=== PATIENT | female | born 1930 | race Caucasian/White ===

== ENCOUNTER → 2017-01-05 | Outpatient (CLI) | payer OTHER ==
[~2017-01-05] MED LIST: ASPIR 8181 MG PO; BONIVA150 MG PO; CALCIUM CITRAT250 MG PO; FLONASE 0.05%50 MCG NASAL; HAIR SKIN NAIL1 EACH PO; LASIX 20 MG TAB20 MG PO; OSTEO BI-FLEX1 EAC1 PO; QUINAPRIL 20 MG20 MG PO; RELAFEN500 MG PO; VITAMIN D400 UNI1 PO; ZOCOR20 MG PO
== END ==
LOC: RAD 01:27
DX: Z12.31 Encounter for screening mammogram for malignant neoplasm of breast (principal)

== ENCOUNTER → 2017-06-20 | Outpatient (CLI) | payer OTHER ==
[~2017-06-20] MED LIST changes: +XARELTO20 MG PO
== END ==
LOC: HYPER 13:02
DX: L89.522 Pressure ulcer of left ankle, stage 2 (principal); L97.321 Non-pressure chronic ulcer of left ankle limited to breakdown of skin; L97.811 Non-pressure chronic ulcer of other part of right lower leg limited to breakdown of skin; I73.89 Other specified peripheral vascular diseases; Z72.89 Other problems related to lifestyle

== ENCOUNTER 2017-09-15 12:39 | Inpatient (IN) | payer OTHER ==
[~2017-09-15] VITALS: Ht 152.4 cm; Wt 59.4 kg
--- NOTE | ~2017-09-15 | CATHLAB ---
[facility] [address] [place] [address] INVASIVE PROCEDURE REPORT Name: HAYDER GUTIERREZ Room #: 200-I [facility]#: [id number] Admission: 09/15/17 Attend Phys: Matthew Meza Discharge: 09/16/17 Date of : 32 Date of Service: 09/16/17 1430 Report #: [id number] THIS REPORT FOR: //name// CC: Matthew Bone DATE OF SERVICE: 09/16/2017 PROCEDURES: 1. Electrical cardioversion. 2. Supervision of conscious sedation. INDICATIONS: An 87-year-old female patient with symptomatic paroxysmal atrial fibrillation with fatigue, tiredness and exertional dyspnea. BRIEF DESCRIPTION OF PROCEDURE: After informed consent was obtained, the patient was brought to cardiac catheterization prep and hold. Continuous electrocardiographic and oximetric monitoring was performed throughout the procedure. 2 mg Versed and 25 of Demerol given IV for conscious sedation. She subsequently underwent 1 synchronized AP shock at 200 joules biphasic, which converted to sinus rhythm first-degree AV block. She was monitored and the AV block resolved and remained in sinus rhythm. Post-procedure, she was given Romazicon and Narcan without complications. The patient tolerated the procedure well. <ELECTRONICALLY SIGNED> By: Matthew Warren MD 09/20/17 1626 1430 1852 Matthew Warren MD /argenis
--- NOTE | ~2017-09-15 | H ---
[facility] [place] [address] [place] [address] HISTORY AND PHYSICAL Name: HAYDER GUTIERREZ Room #: 200-I [facility] IN M.R.#: [id number] Admission: 09/15/17 Attend Phys: Matthew Warren Discharge: 09/16/17 Date of : 31 Report #: [id number] THIS REPORT FOR: //name// CC: Matthew Bone DATE OF SERVICE: 09/15/2017 REASON FOR ADMISSION: Paroxysmal symptomatic atrial fibrillation. BRIEF CLINICAL HISTORY: This is a very pleasant female who was seen as an outpatient for atrial fibrillation. The patient had new onset atrial fibrillation with some fatigue and tiredness. A noninvasive ischemic workup was negative and subsequently has been anticoagulated on a novel agent (Eliquis) for 4 weeks minimum. She now presents for chemical and possible electrical cardioversion. The risks, complications and alternative that has been discussed. She does voice understanding and agrees with admission. PAST MEDICAL HISTORY: 1. Hypertension. 2. Symptomatic paroxysmal atrial fibrillation. 3. Degenerative joint disease. MEDICATIONS: At home are aspirin, lisinopril, amlodipine and Eliquis. PHYSICAL EXAMINATION: GENERAL: Well-developed, well-nourished white female, resting comfortably, in no acute distress. VITAL SIGNS: She is afebrile. Pulse is 65 and irregularly irregular. Respirations are 18, blood pressure is 122/78, and pulse ox on room air is 94%. HEENT: Normocephalic, atraumatic. Pupils are equal, round, reactive to light and accommodation. Extraocular muscles are intact. Sclerae and conjunctivae are anicteric. NECK: JVD is normal. Carotid upstrokes are bilaterally symmetrical. No bruits are heard. No thyromegaly. No lymphadenopathy. LUNGS: Clear to auscultation. No wheezes, rhonchi or crackles. No CVA tenderness. CARDIAC: Demonstrates an irregularly irregular rhythm with a variable first heart sound. ABDOMEN: Soft, nontender, nondistended. Normal bowel sounds. EXTREMITIES: Without cyanosis, clubbing or edema. Distal pulses are intact. DTR symmetrical. NEUROLOGIC: Cranial nerves 2-12 are grossly normal and symmetrical. PSYCHIATRIC: Alert, oriented with normal affect. SKIN: Warm and dry. LABORATORY DATA: BUN and creatinine are 17 and 1.0 respectively, with a [facility] [address] [place] [address] HISTORY AND PHYSICAL Name: HAYDER GUTIERREZ Room #: 200-I [facility] IN .R.#: [id number] Admission: 09/15/17 Attend Phys: Matthew Warren Discharge: 09/16/17 Date of : 31 Report #: [id number] potassium of 4.4. H and H are 12.0 and 35.5, with a platelet count of 210,000. IMPRESSION: 1. Paroxysmal symptomatic atrial fibrillation, presents for assessment and evaluation and possible cardioversion. The risks, complications and alternatives of chemical and electrical cardioversion have been discussed with the patient. She does voice understanding and wished to proceed. We will initiate with IV amiodarone. Monitor rate very carefully and make sure she does not become bradycardic, monitor her blood pressures and then proceed accordingly. 2. Hypertension, well controlled on current regimen. I need not make any changes. <ELECTRONICALLY SIGNED> By: Matthew Warren MD 09/20/17 1626 1141 1211 Matthew Warren MD /nt
--- NOTE | ~2017-09-15 | D ---
[facility] [place] [address] [place] [address] DISCHARGE SUMMARY Name: HAYDER GUTIERREZ Room #: 200-I [facility] IN ..#: [id number] Admission: 09/15/17 Attend Phys: Matthew Warren Discharge: 09/16/17 Date of : 31 Report #: [id number] THIS REPORT FOR: //name// CC: Matthew Bone DATE OF SERVICE: 09/16/2017 ADMITTING DIAGNOSIS: Paroxysmal atrial fibrillation. DISCHARGE DIAGNOSES: 1. Paroxysmal atrial fibrillation, symptomatic. 2. Hypertension. 3. Degenerative joint disease. PROCEDURES PERFORMED: 1. Electrical cardioversion. 2. Supervision of conscious sedation. FOLLOWUP: 1. Dr. Warren in 4 weeks. 2. Nurse practitioner, Maurisio in 7 days. DISCHARGE MEDICATIONS: Home meds with following changes, amiodarone 200 mg p.o. q.a.m. BRIEF CLINICAL HISTORY: See history and physical in the chart. HOSPITAL COURSE: The patient was admitted to the hospital, was initiated on IV amiodarone load. She underwent this without any complication or symptoms and subsequently did not convert. She then underwent electrical cardioversion with a single biphasic shock at 200 joules, which converted her to sinus mechanism. She remained in sinus mechanism post-procedure, was allowed to ambulate without any symptoms or problems developing. She was discharged in stable and improved condition to followup with her previously-stated discharge instructions and medications. DISCHARGE DIET: Heart-healthy diet. <ELECTRONICALLY SIGNED> By: Matthew Warren MD 09/20/17 1626 1434 1508 Matthew Warren MD /nt
--- NOTE | ~2017-09-15 | EKG ---
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
[~2017-09-15 12:39] MED LIST changes: -XARELTO20 MG PO
[2017-09-15 13:20] VITALS: BP 123/78
[2017-09-15 15:23] LABS: HEMATOCRIT 35.5 % (37.0-47.0); MCH 29.2 pg (26.0-34.0); MCHC 33.9 g/dL (28.0-37.0); MCV 86.2 fL (80.0-100.0); RBC 4.12 mil/uL (4.20-5.00); RDW 14.9 % (10.5-14.5); WBC 4.6 thou/uL (4.0-11.0)
[2017-09-15 15:31] LABS: CALCIUM 9.7 mg/dL (8.5-10.1); POTASSIUM 4.4 mmol/L (3.5-5.1)
[2017-09-15 15:33] LABS: INR 1.1; PROTIME 11.2 Seconds (9.3-11.4)
[2017-09-15 15:46] VITALS: BP 129/75
[2017-09-15 19:50] VITALS: BP 99/62
[2017-09-16 00:04] VITALS: BP 85/53
[2017-09-16 03:22] VITALS: BP 104/71
[2017-09-16 06:59] VITALS: BP 116/64
[2017-09-16 11:14] VITALS: BP 103/65
[2017-09-16] MEDS ORDERED: XARELTO20 MG PO (14:13)
[2017-09-16 14:24] VITALS: BP 103/65
[2017-09-16 14:36] VITALS: BP 103/65
== END 2017-09-16 15:00 | disposition home or self-care (01) | DRG 310 ==
LOC: 2N 12:39 → ENTRNSPT 09-16 14:45 → 2N 09-16 15:00
PROVIDERS: Nurse Practitioner Gerontology
PROC: 5A2204Z Restoration of Cardiac Rhythm, Single (ICD-10-PCS; principal; 2017-09-16)
DX: I48.0 Paroxysmal atrial fibrillation (principal); I10 Essential (primary) hypertension; Z79.82 Long term (current) use of aspirin; Z79.899 Other long term (current) drug therapy
CPT/HCPCS: 10797

== ENCOUNTER → 2017-11-16 | Outpatient (CLI) | payer OTHER ==
[~2017-11-16] MED LIST changes: +XARELTO20 MG PO
== END ==
LOC: HYPER 07:09
DX: L97.811 Non-pressure chronic ulcer of other part of right lower leg limited to breakdown of skin (principal); I87.2 Venous insufficiency (chronic) (peripheral); I73.9 Peripheral vascular disease, unspecified

== ENCOUNTER → 2017-11-23 | Outpatient (CLI) | payer OTHER | LOC: HYPER 07:01 | DX: L97.311 Non-pressure chronic ulcer of right ankle limited to breakdown of skin (principal); L97.811 Non-pressure chronic ulcer of other part of right lower leg limited to breakdown of skin; I87.2 Venous insufficiency (chronic) (peripheral); I73.9 Peripheral vascular disease, unspecified ==

== ENCOUNTER → 2017-11-30 | Outpatient (CLI) | payer OTHER | LOC: HYPER 06:44 | DX: L97.811 Non-pressure chronic ulcer of other part of right lower leg limited to breakdown of skin (principal); L97.311 Non-pressure chronic ulcer of right ankle limited to breakdown of skin; I87.2 Venous insufficiency (chronic) (peripheral); I73.9 Peripheral vascular disease, unspecified ==

== ENCOUNTER → 2017-12-12 | Outpatient (CLI) | payer OTHER | LOC: HYPER 07:26 | DX: L97.811 Non-pressure chronic ulcer of other part of right lower leg limited to breakdown of skin (principal); L97.821 Non-pressure chronic ulcer of other part of left lower leg limited to breakdown of skin; L97.321 Non-pressure chronic ulcer of left ankle limited to breakdown of skin; I87.2 Venous insufficiency (chronic) (peripheral); I73.9 Peripheral vascular disease, unspecified ==

== ENCOUNTER → 2017-12-28 | Outpatient (CLI) | payer OTHER | LOC: HYPER 06:38 | DX: L97.811 Non-pressure chronic ulcer of other part of right lower leg limited to breakdown of skin (principal); L97.311 Non-pressure chronic ulcer of right ankle limited to breakdown of skin; I87.2 Venous insufficiency (chronic) (peripheral); I73.9 Peripheral vascular disease, unspecified ==

== ENCOUNTER → 2018-01-09 | Outpatient (CLI) | payer OTHER | LOC: RAD 01:17 | DX: Z12.31 Encounter for screening mammogram for malignant neoplasm of breast (principal); I10 Essential (primary) hypertension; M81.0 Age-related osteoporosis without current pathological fracture ==

== ENCOUNTER → 2018-03-16 | Outpatient (CLI) | payer OTHER | LOC: HYPER 06:52 | DX: L97.321 Non-pressure chronic ulcer of left ankle limited to breakdown of skin (principal); L97.311 Non-pressure chronic ulcer of right ankle limited to breakdown of skin; L97.811 Non-pressure chronic ulcer of other part of right lower leg limited to breakdown of skin; I87.8 Other specified disorders of veins; I87.2 Venous insufficiency (chronic) (peripheral); I73.9 Peripheral vascular disease, unspecified ==

== ENCOUNTER → 2018-03-28 | Outpatient (CLI) | payer OTHER | LOC: HYPER 06:59 | DX: L97.311 Non-pressure chronic ulcer of right ankle limited to breakdown of skin (principal); L97.321 Non-pressure chronic ulcer of left ankle limited to breakdown of skin; L97.811 Non-pressure chronic ulcer of other part of right lower leg limited to breakdown of skin; I87.2 Venous insufficiency (chronic) (peripheral); I87.8 Other specified disorders of veins; I73.9 Peripheral vascular disease, unspecified ==

== ENCOUNTER → 2018-04-10 | Outpatient (CLI) | payer OTHER | LOC: HYPER 06:57 | DX: L97.811 Non-pressure chronic ulcer of other part of right lower leg limited to breakdown of skin (principal); L97.311 Non-pressure chronic ulcer of right ankle limited to breakdown of skin; L97.322 Non-pressure chronic ulcer of left ankle with fat layer exposed; S91.301A Unspecified open wound, right foot, initial encounter; L84 Corns and callosities; I87.2 Venous insufficiency (chronic) (peripheral); I87.8 Other specified disorders of veins; I73.9 Peripheral vascular disease, unspecified; X58.XXXA Exposure to other specified factors, initial encounter; Y93.89 Activity, other specified; Y92.89 Other specified places as the place of occurrence of the external cause; Y99.8 Other external cause status ==

== ENCOUNTER → 2018-05-02 | Outpatient (CLI) | payer OTHER | LOC: HYPER 04-25 15:51 | DX: I87.333 Chronic venous hypertension (idiopathic) with ulcer and inflammation of bilateral lower extremity (principal); L97.311 Non-pressure chronic ulcer of right ankle limited to breakdown of skin; L97.811 Non-pressure chronic ulcer of other part of right lower leg limited to breakdown of skin; L97.322 Non-pressure chronic ulcer of left ankle with fat layer exposed; L84 Corns and callosities; B36.9 Superficial mycosis, unspecified; I87.8 Other specified disorders of veins; I73.9 Peripheral vascular disease, unspecified ==

== ENCOUNTER 2018-05-24 07:03 | Inpatient (IN) | payer OTHER ==
[~2018-05-24] VITALS: Ht 165.1 cm; Wt 55.7 kg
--- NOTE | ~2018-05-24 | HC ---
[facility] [place] [address] [place] [address] CONSULTATION Name: HAYDER GUTIERREZ Room #: 222-P [facility] IN .R.#: [id number] Admission: 05/24/18 Attend Phys: Jazmyne Wiggins MD Discharge: Date of : 31 Report #: [id number] THIS REPORT FOR: //name// CC: Jazmyne Strickland Smith Jason Hyatt DATE OF SERVICE: 05/26/2018 REASON FOR CONSULTATION: I was asked to evaluate concerning bilateral lower extremity cellulitis. HISTORY OF PRESENT ILLNESS: The patient was an 88-year-old admitted from the [facility] because of progressive lower extremity wounds and cellulitis. The patient could not tell me what antibiotic she was on in the outpatient clinic. I have not seen any culture results. Following admission, she was placed on Zosyn. She has a significant amount of tenderness in both lower extremities. She has weeping serous drainage from her wounds. No fever, chills or sweats. She has been dealing with this for several months. She has also had vein ablation surgery procedures which remain ongoing. She has had arterial studies, which show posterior tibial obstruction bilaterally with good anterior flow. She feels over the last 24 hours of IV antibiotic therapy and wound care, she has improved. ALLERGIES: BACTRIM. MEDICATIONS: As noted on her MAR, now on Zosyn. She is also receiving topical therapy with gentamicin. PAST MEDICAL HISTORY: Bilateral total knee arthroplasties, cholecystectomy, hypertension, hyperlipidemia, right cataract surgery, right breast cancer with lumpectomy, lymph node dissection, full dentures, peripheral vascular disease, status post stenting, atrial fibrillation. FAMILY HISTORY: Noncontributory. SOCIAL HISTORY: Nonsmoker, no significant alcohol intake. REVIEW OF SYSTEMS: CONSTITUTIONAL: Negative. EYES: Negative. HEENT: Negative. RESPIRATORY: Negative. CARDIOVASCULAR: Negative. GASTROINTESTINAL: Negative. GENITOURINARY: Negative. [facility] [address] [place] [address] CONSULTATION Name: HAYDER GUTIERREZ Room #: 222-P [facility] IN [facility].#: [id number] Admission: 05/24/18 Attend Phys: Jazmyne Wiggins MD Discharge: Date of : 31 Report #: [id number] MUSCULOSKELETAL: Negative. SKIN: As above with peripheral edema noted. NEUROLOGIC: Negative. PSYCHIATRIC: Negative. ENDOCRINE: Negative. PHYSICAL EXAMINATION: VITAL SIGNS: Afebrile and hemodynamically stable. GENERAL: Alert and cooperative. HEENT: Unremarkable other than being edentulous. No oral mucosal lesions. NECK: Supple. No JVD. LUNGS: Clear. HEART: Regular, without murmur. ABDOMEN: Soft and nontender. No hepatosplenomegaly or mass. EXTREMITIES: Pulses were palpable, 4+ in the dorsalis pedis bilaterally. Diminished posterior tibial. Reasonable capillary refill, both feet. Venous stasis dermatitis changes bilateral lower extremities from ankles to proximal mid calf regions. No purulent drainage identified. She did have some crusting of her lesions. There were erythematous areas on both lower legs with no lymphangitis proximal to the knees. NEUROLOGIC: Nonfocal with cranial nerves intact. Strength and sensation normal upper and lower extremities. LABORATORY STUDIES: Reviewed. Cultures are pending. IMPRESSION AND PLAN: 1. Bilateral lower extremity venous stasis disease with secondary infection. I have discussed the case with wound care service. She has had a vascular work done previously. 2. Atrial fibrillation. 3. Peripheral vascular disease and venous insufficiency. RECOMMENDATION: 1. We will continue with Zosyn pending further culture results. Continue with Wound Care procedures as outlined by the wound care service. Elevate as much as possible to control edema. Once cultures are back then we will decide on oral antibiotic options. <ELECTRONICALLY SIGNED> By: Luis Stoner MD 05/27/18 1032 1618 2129 Luis Stoner MD /nt
--- NOTE | ~2018-05-24 | HC ---
[facility] [address] [place] [address] CONSULTATION Name: HAYDER GUTIERREZ Room #: 222-P ADM IN M.R.#: [id number] Admission: 05/24/18 Attend Phys: Jazmyne Wiggins MD Discharge: Date of : 31 Report #: [id number] THIS REPORT FOR: //name// CC: Jazmyne Smith Jason Hyatt DATE OF SERVICE: 05/25/2018 REASON FOR CONSULTATION: Bilateral lower extremity venous ulcerations and cellulitis. HISTORY OF PRESENT ILLNESS: This is an 88-year-old female patient who has been followed by Dr. Smith in the outpatient wound center since November 2016. She has had recurrent and persistent ulceration. She has recently developed cellulitis that has failed outpatient antibiotic therapy due to increased pain, swelling, drainage and redness. She is admitted to the hospital for ongoing treatment and evaluation. PAST MEDICAL HISTORY: Significant for history of venous insufficiency, venous stasis dermatitis and ulceration. She has been evaluated by Dr. Dowling for venous ablations. She has previously undergone arterial Doppler studies, which demonstrate fairly good flow. She has 2-vessel runoff below the knees with occlusion of the posterior tibial arteries bilaterally. ALLERGIES: SULFA. MEDICATIONS: Include Xarelto, Accupril, Osteo Bi-Flex, Lasix, Zocor, Flonase, aspirin. PAST MEDICAL HISTORY: Positive for history of atrial fibrillation, peripheral arterial disease, breast cancer, hyperlipidemia, hypertension. SOCIAL HISTORY: The patient admits to occasional alcohol consumption. Denies tobacco use. FAMILY HISTORY: Unknown and noncontributory. REVIEW OF SYSTEMS: CONSTITUTIONAL: The patient denies fever, chills or weight loss. NEUROLOGICAL: The patient denies focal weakness, numbness or tingling. EYES: The patient denies any visual changes, redness or drainage. ENT: The patient denies earache, nasal drainage or sore throat. CARDIOVASCULAR: The patient denies chest pain or palpitations. PULMONARY: The patient denies cough or shortness of breath. GASTROINTESTINAL: The patient denies nausea, vomiting, diarrhea or abdominal [facility] [address] [facility] [place] [address] CONSULTATION Name: HAYDER GUTIERREZ Room #: 222-P [facility] IN M.R.#: [id number] Admission: 05/24/18 Attend Phys: Jazmyne Wiggins MD Discharge: Date of : 31 Report #: [id number] pain. ORTHOPEDIC: The patient does complain of swelling, redness and pain in both lower extremities. Other systems in a 14-point review of systems are negative. PHYSICAL EXAMINATION: VITAL SIGNS: At this time include pulse 56, respiratory rate 17, blood pressure 119/67, temperature 98.0. GENERAL: This is a chronically ill-appearing female patient who appears to be in minimal distress. HEENT: Head normocephalic. Nose and throat are clear. NECK: Supple. LUNGS: Clear. HEART: Irregular without murmur. ABDOMEN: Soft. Bowel sounds present. EXTREMITIES: Lower extremities demonstrate easily palpable dorsalis pedis pulses bilaterally. She has 1+ edema bilaterally. Significant erythema involving the lower legs and ankles bilaterally, multiple ulcerations of scaling and venous stasis dermatitis. NEUROLOGIC: Alert and oriented. LABORATORY DATA: Include sodium 133, potassium 4.6, chloride 102, CO2 of 26, BUN 27, creatinine 1.2 and glucose of 92. Albumin is 3.0. INR is 1.1. White blood cell count is 4.8 with a hemoglobin of 10.0, hematocrit of 29.5, platelet count 277,000. CLINICAL IMPRESSION: 1. Venous type ulcerations, bilateral lower extremities. 2. Cellulitis, bilateral lower extremities. 3. Venous stasis dermatitis. 4. Peripheral arterial disease with occluded posterior tibial arteries bilaterally. RECOMMENDATIONS: At this point in time, culture and sensitivity has been obtained, results pending. We will recommend elevation of her leg, gentamicin ointment, Xeroform, Kerlix and Jimmy wraps for compression. We will continue her current home medications. Continue nutritional support. Infectious Disease consultation has been requested. I appreciate being asked to see her in consultation. <ELECTRONICALLY SIGNED> By: Agapito Briggs MD 05/29/18 0738 1558 49 Agapito Briggs MD /nt
[2018-05-24 14:48] VITALS: BP 139/62
[2018-05-24 15:09] LABS: HEMATOCRIT 32.5 % (37.0-47.0); HEMOGLOBIN 10.9 gm/dL (12.0-15.0); MCH 31.3 pg (26.0-34.0); MCHC 33.6 g/dL (28.0-37.0); MCV 93.3 fL (80.0-100.0); RBC 3.49 mil/uL (4.20-5.00); RDW 14.6 % (10.5-14.5); WBC 5.7 thou/uL (4.0-11.0)
[2018-05-24 15:23] LABS: CALCIUM 9.2 mg/dL (8.5-10.1); CREATININE 1.5 mg/dL (0.6-1.0); POTASSIUM 4.9 mmol/L (3.5-5.1)
[2018-05-24 15:29] LABS: TOTAL BILIRUBIN 0.7 mg/dL (<0.1-1.0); TOTAL PROTEIN 7.9 g/dL (6.4-8.2)
[2018-05-24] MEDS ORDERED: ELIQUIS2.5 MG PO (17:58)
[2018-05-24] MEDS ORDERED: NEURONTIN100 MG (18:00)
[2018-05-24 18:53] VITALS: BP 136/70
[2018-05-24 19:54] VITALS: BP 122/64
[2018-05-24 22:19] LABS: URINE BILIRUBIN NEGATIVE (Negative); URINE BLOOD NEGATIVE (Negative); URINE CLARITY CLEAR; URINE COLOR YELLOW; URINE GLUCOSE-RANDOM* NEGATIVE (Negative); URINE KETONES NEGATIVE (Negative); URINE LEUKOCYTES TRACE (Negative); URINE NITRITE NEGATIVE (Negative); URINE PROTEIN (DIPSTICK) NEGATIVE (Negative); URINE UROBILINOGEN 0.2 E.U./dl (0.2-1.0)
[2018-05-25 07:36] LABS: HEMATOCRIT 29.5 % (37.0-47.0); MCH 31.4 pg (26.0-34.0); MCV 92.3 fL (80.0-100.0); RBC 3.19 mil/uL (4.20-5.00); RDW 14.1 % (10.5-14.5); WBC 4.8 thou/uL (4.0-11.0)
[2018-05-25 07:51] LABS: CALCIUM 8.4 mg/dL (8.5-10.1); CREATININE 1.2 mg/dL (0.6-1.0); POTASSIUM 4.6 mmol/L (3.5-5.1)
[2018-05-25 08:20] VITALS: BP 119/67
[2018-05-25 19:30] VITALS: BP 120/66
[2018-05-25] MEDS ORDERED: AMIODARONE HCL100 MG PO (19:46)
[2018-05-25] MEDS ORDERED: SYNTHROID25 MC1 PO (19:48)
[2018-05-26 07:45] VITALS: BP 119/67
[2018-05-26 09:39] LABS: FOLIC ACID 29.9 ng/mL (8.6-58.9)
[2018-05-26 19:59] VITALS: BP 111/53
[2018-05-27 08:06] VITALS: BP 145/101
[2018-05-27 20:00] VITALS: BP 122/70
[2018-05-28 07:41] VITALS: BP 127/70
[2018-05-28 22:33] VITALS: BP 155/83
[2018-05-29 07:30] VITALS: BP 141/70
[2018-05-29 07:56] LABS: HEMATOCRIT 32.3 % (37.0-47.0); HEMOGLOBIN 10.9 gm/dL (12.0-15.0); MCH 31.1 pg (26.0-34.0); MCHC 33.6 g/dL (28.0-37.0); MCV 92.4 fL (80.0-100.0); RBC 3.49 mil/uL (4.20-5.00); RDW 14.4 % (10.5-14.5); WBC 5.1 thou/uL (4.0-11.0)
[2018-05-29 08:12] LABS: CALCIUM 8.7 mg/dL (8.5-10.1); POTASSIUM 4.3 mmol/L (3.5-5.1)
[2018-05-30 00:29] VITALS: BP 110/58
[2018-05-30 07:40] VITALS: BP 121/62
[2018-05-30 10:49] VITALS: BP 120/62
[2018-05-30] MEDS ORDERED: CETIRIZINE HCL5 MG PO (12:51)
[2018-05-30] MEDS ORDERED: ACETAMINOPHEN325 M1 PO (12:51)
[2018-05-30] MEDS ORDERED: ASPIR 8181 MG PO (12:51)
[2018-05-30] MEDS ORDERED: HYDROCODON-ACE1 EAC7 PO (12:51)
[2018-05-30] MEDS ORDERED: TRAMADOL 50 MG50 MG PO (12:51)
== END 2018-05-30 16:01 | DRG 602 ==
LOC: HYPER 07:03 → SICU 13:34 → 4E 13:34 → SICU 18:21
PROVIDERS: Internal Medicine; Nurse Practitioner Family
PROC: 5A2204Z Restoration of Cardiac Rhythm, Single (ICD-10-PCS; principal; 2018-05-24)
PROC: 05HY33Z Insertion of Infusion Device into Upper Vein, Percutaneous Approach (ICD-10-PCS; 2018-05-26)
DX: L03.116 Cellulitis of left lower limb (principal); N17.0 Acute kidney failure with tubular necrosis; E87.1 Hypo-osmolality and hyponatremia; L03.115 Cellulitis of right lower limb; I73.9 Peripheral vascular disease, unspecified; K59.00 Constipation, unspecified; E55.9 Vitamin D deficiency, unspecified; I87.2 Venous insufficiency (chronic) (peripheral); E78.5 Hyperlipidemia, unspecified; I10 Essential (primary) hypertension; Z96.653 Presence of artificial knee joint, bilateral; I48.0 Paroxysmal atrial fibrillation; L27.0 Generalized skin eruption due to drugs and medicaments taken internally; B96.5 Pseudomonas (aeruginosa) (mallei) (pseudomallei) as the cause of diseases classified elsewhere; B96.89 Other specified bacterial agents as the cause of diseases classified elsewhere; T36.0X5A Adverse effect of penicillins, initial encounter; Y92.89 Other specified places as the place of occurrence of the external cause; Z90.49 Acquired absence of other specified parts of digestive tract; Z98.41 Cataract extraction status, right eye; Z85.3 Personal history of malignant neoplasm of breast; Z79.01 Long term (current) use of anticoagulants; Z79.899 Other long term (current) drug therapy; Z88.1 Allergy status to other antibiotic agents; Z88.2 Allergy status to sulfonamides
CPT/HCPCS: 15002; 27000

== ENCOUNTER → 2018-10-23 | Outpatient (CLI) | payer OTHER ==
[~2018-10-23] MED LIST changes: +ACETAMINOPHEN325 M1 PO; +AMIODARONE HCL100 MG PO; +CETIRIZINE HCL5 MG PO; +ELIQUIS2.5 MG PO; +HYDROCODON-ACE1 EAC7 PO; +NEURONTIN100 MG; +SYNTHROID25 MC1 PO; +TRAMADOL 50 MG50 MG PO
== END ==
LOC: HYPER 06:47
DX: I87.333 Chronic venous hypertension (idiopathic) with ulcer and inflammation of bilateral lower extremity (principal); L97.311 Non-pressure chronic ulcer of right ankle limited to breakdown of skin; L97.322 Non-pressure chronic ulcer of left ankle with fat layer exposed; L97.811 Non-pressure chronic ulcer of other part of right lower leg limited to breakdown of skin; I87.2 Venous insufficiency (chronic) (peripheral); L03.115 Cellulitis of right lower limb; L03.116 Cellulitis of left lower limb; L84 Corns and callosities; I73.9 Peripheral vascular disease, unspecified; B36.9 Superficial mycosis, unspecified; R60.0 Localized edema

== ENCOUNTER → 2018-10-30 | Outpatient (CLI) | payer OTHER | LOC: MRI 10:33 | DX: M86.8X7 Other osteomyelitis, ankle and foot (principal); L03.116 Cellulitis of left lower limb; L97.322 Non-pressure chronic ulcer of left ankle with fat layer exposed; I87.333 Chronic venous hypertension (idiopathic) with ulcer and inflammation of bilateral lower extremity ==

== ENCOUNTER → 2018-11-14 | Outpatient (CLI) | payer OTHER | LOC: HYPER 06:52 | DX: I87.333 Chronic venous hypertension (idiopathic) with ulcer and inflammation of bilateral lower extremity (principal); L97.311 Non-pressure chronic ulcer of right ankle limited to breakdown of skin; L97.322 Non-pressure chronic ulcer of left ankle with fat layer exposed; I87.8 Other specified disorders of veins; B36.9 Superficial mycosis, unspecified; L84 Corns and callosities; I73.9 Peripheral vascular disease, unspecified; R60.0 Localized edema ==

== ENCOUNTER → 2018-12-05 | Outpatient (CLI) | payer OTHER | LOC: HYPER 06:39 | DX: I87.333 Chronic venous hypertension (idiopathic) with ulcer and inflammation of bilateral lower extremity (principal); L97.311 Non-pressure chronic ulcer of right ankle limited to breakdown of skin; L97.322 Non-pressure chronic ulcer of left ankle with fat layer exposed; I97.811 Intraoperative cerebrovascular infarction during other surgery; L84 Corns and callosities; I73.9 Peripheral vascular disease, unspecified; B36.9 Superficial mycosis, unspecified ==

== ENCOUNTER 2018-12-21 17:01 | Inpatient (IN) | payer OTHER ==
[~2018-12-21] VITALS: Ht 165.1 cm; Wt 59.1 kg
[~2018-12-21 17:01] MED LIST changes: -MEROPENEM 1 GM V1 GM IVPB
[2018-12-21 17:02] VITALS: BP 130/70
[2018-12-21 18:17] LABS: HEMATOCRIT 25.6 % (37.0-47.0); HEMOGLOBIN 8.9 gm/dL (12.0-15.0); MCH 32.7 pg (26.0-34.0); MCHC 34.9 g/dL (28.0-37.0); MCV 93.6 fL (80.0-100.0); PLATELET COUNT 248 thou/uL (150-400); RBC 2.73 mil/uL (4.20-5.00); RDW 12.7 % (10.5-14.5); WBC 4.8 thou/uL (4.0-11.0)
[2018-12-21 18:26] LABS: CALCIUM 8.5 mg/dL (8.5-10.1); CREATININE 1.3 mg/dL (0.6-1.0); POTASSIUM 4.9 mmol/L (3.5-5.1)
[2018-12-21 18:32] LABS: ALBUMIN 3.1 g/dL (3.4-5.0); TOTAL BILIRUBIN 0.6 mg/dL (<0.1-1.0); TOTAL PROTEIN 7.5 g/dL (6.4-8.2)
[2018-12-21 18:44] LABS: ABSOLUTE NEUTROPHILS 3.8 thou/uL (1.4-8.2); ANISOCYTOSIS 1+
--- NOTE | 2018-12-21 19:31 | NUR ---
PATIENT GIVEN FOOD AT REQUEST. PROVIDER STATED PATIENT OK TO EAT AND PLANS TO ADMIT PATIENT.
[2018-12-21 20:31] VITALS: BP 112/55
--- NOTE | 2018-12-21 20:36 | NUR ---
REPORT TO ZHANG ON 4W
[2018-12-21 20:40] VITALS: BP 100/49
[2018-12-21 21:17] VITALS: BP 151/73
[2018-12-22 05:51] VITALS: BP 114/53
[2018-12-22 06:10] LABS: % SATURATION 8 % (20-39); IRON 13 ug/dL (50-170); TIBC 170 ug/dL (250-450)
--- NOTE | 2018-12-22 07:41 | NUR ---
Received pt from ED at 2134. Pt AOX4. VSS. Up X1 assist. Admission assessment complete. Covered necrotic wound on left ankle with wet to dry dressing. Pictures taken and woundcare nurse consulted. Pt is on contact isolation for MDR. Stool sample still needs to be collected. No identified needs at the moment. Will continue to monitor.
[2018-12-22 08:10] VITALS: BP 121/69
--- NOTE | 2018-12-22 12:18 | NUR ---
PT ADMITTED FOR OP INFUSION CLINIC RELATED TO L ankle osteomylitis, Fever. CM REVIEWED CHART AND SPOKE WITH CARE TEAM. CM MET WITH PT AT BEDSIDE THIS DAY. PT IS A&0 X4. CM ROLE INTRODUCED. PT INDICATED SHE LIVES IN AN APARTMET WITH HER SPOUSE WITH 2 STEPS TO ENTER AND NO STEPS INSIDE. 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 PT INDICATED THAT HER SISTER RECENTLY PASSED AND HER IS TOMORROW. TRINI LAGOS CONTACTED CM AND INDICATED THAT THEY HAD STARTED TEACH WITH PT BEFORE SHE WAS HOSPITALIZED. CM TO FOLLOW INDICATED WITH DC PLANNING.
[2018-12-22 12:50] LABS: CALCIUM 7.9 mg/dL (8.5-10.1); CREATININE 1.2 mg/dL (0.6-1.0); POTASSIUM 4.9 mmol/L (3.5-5.1)
--- NOTE | 2018-12-22 13:26 | NUR ---
Nutrition: pt admit with Left ankle osteomyelitis/non healing ulcer x 6-8 months. S/P debridement 9 days ago. Consulted due to order for ensure. Pt has a good appetite and stable weights. Protein needs/sources reviewed. pt uses premier protein at home but also likes ensure enlive. Offer ensure enlive and ensure max daily. Able to order meals. On ferrous sulfate, B12 and vitamin D supplementation. Low risk with nutrition interventions in place.
--- NOTE | 2018-12-22 14:30 | NUR ---
DISCHARGE PLANNING. ANTICIPATED DISCHARGE TO HOME TODAY. HOME HEALTH NEEDED AT DISCHARGE. REFERRAL FAXED TO [facility] PER PATIENT REQUEST. PATIENT HAS USED THEIR SERVICES IN THE PAST AND WOULD LIKE TO USE THEM AGAIN. IV ANTIBIOTIC INFUSION NEEDED AT DISCHARGE. CALL PLACED TO [facility] INTAKE. SPOKE WITH HAYDER TO NOTIFY OF HOME HEALTH AND IV ABX INFUSION. HAYDER TO REVIEW AND CONTACT ONCE REVIEW COMPLETED. [facility] CONTACT NUMBER [phone] FAX [phone]
--- NOTE | 2018-12-22 15:05 | HC ---
[facility] [place] [address] CONSULTATION Name: HAYDER GUTIERREZ Room #: 460-P [facility] IN M.R.#: [id number] Admission: 12/21/18 ������������������ Attend Phys: Jazmyne Wiggins MD Discharge: ������������������ Date of : 31 Report #: [id number] THIS REPORT FOR: //name// CC: Jazmyne Hyatt DATE OF SERVICE: 12/22/2018 REASON FOR CONSULTATION: Evaluate fever with left lower extremity osteomyelitis. HISTORY OF PRESENT ILLNESS: An 88-year-old was recently diagnosed with left fibular osteomyelitis following chronic wound to the lateral aspect of her left ankle with underlying venous stasis disease. She has been dealing with this for several months. She has been undergoing wound care at [facility] as well as venous ablation procedures. She has noticed increased pain in the left ankle and underwent MRI scan on 10/30/2018 which showed mild osteomyelitis involving the lateral margin of the lateral malleolus beneath the wound. No evidence of septic arthritis or abscess. On 12/13/2018, Dr. Alejandro Levy performed debridement of the left fibula with closure. Postoperatively, was placed on cefdinir. She returned with growth of penicillin susceptible Enterococcus and fully susceptible Pseudomonas aeruginosa. Because of new findings on culture, antibiotics were switched to meropenem. She was to get her first dose yesterday and when presented to the outpatient infusion center for IV access and first dose of her medications, she was noted to have chills and fever up to 102.2 degrees. She was therefore hospitalized for further evaluation. The patient denies any nausea, vomiting or diarrhea. No dysuria, frequency, back or flank pain. No cough or sputum production or chest pain. No other skin lesions noted. Appetite has been reasonable. REVIEW OF SYSTEMS: Ten-point review was negative other than what has been described above. PAST MEDICAL HISTORY: Chronic venous stasis disease of the lower extremity with a wound involving the lateral ankle. It is noted that she was treated prolonged IV antibiotic course for pseudomonas involvement of the wound in June of this year. Hyperlipidemia, hypertension, right breast cancer, peripheral vascular disease, atrial fibrillation, total knee arthroplasty, bilateral cholecystectomy, bilateral cataract surgery, right breast lumpectomy, lymph node dissection, peripheral stents in place. FAMILY HISTORY: Noncontributory. SOCIAL HISTORY: Nonsmoker, no significant alcohol intake. [address] [address] CONSULTATION Name: HAYDER GUTIERREZ Room #: 460-P [facility] IN M.R.#: [id number] Admission: 12/21/18 ������������������ Attend Phys: Jazmyne Wiggins MD Discharge: ������������������ Date of : 31 Report #: [id number] ALLERGIES: SULFA. MEDICATIONS: As noted on her AUG, now on meropenem. PHYSICAL EXAMINATION: VITAL SIGNS: She is afebrile and hemodynamically stable. Temperature has decreased and is 99 degrees today. GENERAL: She was up and out of bed and ambulatory, in no distress. Alert and cooperative. SKIN: With a wound to the lateral ankle incision site on the left. There was some eschar. There was serous drainage. Minimal surrounding erythema. No fluctuance. EXTREMITIES: 1+ peripheral edema below the knee on the left. No palpable adenopathy. HEENT: Eyes, without scleral icterus. Mouth without mucositis. LUNGS: Clear to auscultation. HEART: Regular, without murmur, gallop or rub. ABDOMEN: Soft and nontender with no hepatosplenomegaly or mass. EXTERNAL GENITALIA AND RECTAL: Not performed. EXTREMITIES: Without clubbing or cyanosis. Left upper extremity midline catheter without erythema or drainage. NECK: Without mass, lesion, thyromegaly or JVD. NEUROLOGIC: Mood was normal. Cranial nerves intact. Strength in the upper and lower extremities was normal with sensation to fine touch normal. LABORATORY STUDIES: Hemoglobin 8.9; WBC 4.8 with 79% segs; 11% lymphs; platelet count was 248,000. Sodium 130, potassium 4.9, bicarbonate 25, creatinine 1.3 up from 0.9 last week. Liver function test normal. CRP was 175. ESR 17. Chest x-ray clear. Blood culture is negative to date. IMPRESSION: An 88-year-old with peripheral vascular disease, venous stasis disease of both lower extremities, left greater than right, with osteomyelitis of the lateral malleolus, postoperative day #9 from surgical debridement. Growth of Enterococcus and Pseudomonas aeruginosa, fully susceptible organisms. Now with fever, I am suspecting related to her surgical site and osteomyelitis. So far, no other end-organ infection identified. Still awaiting urinalysis and urine culture results. The patient, however, has had no urinary symptoms. Anticipate reasonable response to IV antibiotic therapy. We will adjust her meropenem to 1 gram b.i.d. due to her creatinine changes. If this improves over the next several days, we plan to increase her dose accordingly. The patient desires to leave the hospital to attend her sister's that will be tomorrow morning. If patient remains afebrile and no new issues develop, feel this may be a reasonable option. I have made arrangements with home health for IV antibiotic therapy. We will discuss with clinical social work therapist regarding implementing these orders. We will evaluate again next week in the [facility] [address] [place] [address] CONSULTATION Name: HAYDER GUTIERREZ Room #: 460-P ADM IN M.R.#: [id number] Admission: 12/21/18 ������������������ Attend Phys: Jazmyne Wiggins MD Discharge: ������������������ Date of : 31 Report #: [id number] outpatient setting. She will require further localized wound care to this region. We will control edema with Tubigrip and leg elevation. ��������������������������������������������� <ELECTRONICALLY SIGNED> ���������������������������������������� By: Luis Stoner MD ��������������������������������������������� 12/22/18 1505 1232 1356 Luis Stoner MD /nt
[2018-12-22 16:06] VITALS: BP 114/53
[2018-12-22 16:07] VITALS: BP 114/53
[2018-12-22] MEDS ORDERED: MEROPENEM 1 GM V1 GM IVPB (16:10)
--- NOTE | 2018-12-22 17:07 | NUR ---
DIS ASSUME CARE AT 0700. VSS. AFEBRILE. PAIN IS TOLERABLE ON THE LEFT FOOT PER PT. WOUND CARE AND DRESSING DONE. PT IS FOR DC TODAY. PT WILL DC WITH THE LEFT UPPER MIDLINE FOR ABX THERAPY WITH HOME HEALTH UPON DC. SEE CM NOTES FOR ADDITIONAL INFO. DC PACKET PROVIDED.
--- NOTE | 2018-12-22 17:12 | NUR ---
PT IS TO DISCHARGE HOME THIS DAY WITH [facility]. NAA CAME AND DID BEDSIDE TEACH. DRUG WAS DELIVERED TO PT HERE AT HOSPITAL FOR HER TO TAKE WITH HER. ORDERS WERE FAXED TO [facility] AND [facility]. PT IS TO BE TRANSPORTED HOME VIA HER SON. NO OTHER CM INTERVENTION INDICATED CASE CLOSED.
[2018-12-22 17:15] VITALS: BP 114/53
--- NOTE | 2018-12-25 07:44 | HC ---
[facility] [place] [address] CONSULTATION Name: HAYDER GUTIERREZ Room #: 460-P [facility] IN ..#: [id number] Admission: 12/21/18 ������������������ Attend Phys: Jazmyne Wiggins MD Discharge: 12/22/18 ������������������ Date of : 31 Report #: [id number] THIS REPORT FOR: //name// CC: Jazmyne Toledoquynh Hyatt DATE OF SERVICE: 12/22/2018 CHIEF COMPLAINT: Left ankle wound. HISTORY OF PRESENT ILLNESS: This is an 88-year-old female patient who underwent a surgical debridement of her left lateral ankle approximately 8 days ago. She has developed redness, drainage, warmth, and fever. She was advised to be admitted to the hospital and started on intravenous antibiotic therapy. The patient has been weightbearing since surgery, but states it is increasingly painful. PAST MEDICAL HISTORY: Positive for history of osteomyelitis of the ankle, previous cholecystectomy, hypertension, history of breast cancer, peripheral arterial disease, status post lower extremity stenting in the past, bilateral lower extremity cellulitis, and hypothyroidism. SOCIAL HISTORY: The patient admits to occasional glass of wine. Denies smoking. FAMILY HISTORY: Noncontributory. MEDICATIONS: Include Eliquis, Neurontin, Norvasc, Klor-Con, Diovan, vitamin B12, iron, Lasix, Zocor, Flonase, amiodarone, and Synthroid. ALLERGIES: SULFA. REVIEW OF SYSTEMS: CONSTITUTIONAL: The patient does have fever. Denies chills, weight loss. EYES: The patient denies visual changes, redness, or drainage. ENT: The patient denies earache, nasal drainage, sore throat. CARDIOVASCULAR: The patient denies chest pain, palpitation, or diaphoresis. PULMONARY: The patient denies cough or shortness of breath. GASTROINTESTINAL: The patient denies nausea, vomiting, diarrhea, or abdominal pain.. ORTHOPEDIC: The patient complains of significant pain, drainage, some swelling of her left lower extremity. Other systems in a 14-point review of systems are negative. PHYSICAL EXAMINATION: [facility] [address] [place] [address] CONSULTATION Name: HAYDER GUTIERREZ Room #: 460-P [facility] IN M.R.#: [id number] Admission: 12/21/18 ������������������ Attend Phys: Jazmyne Wiggins MD Discharge: 12/22/18 ������������������ Date of : 31 Report #: [id number] VITAL SIGNS: At this time include temperature 37.2, pulse 75, respiratory rate of 16, and blood pressure 115/53. GENERAL: An elderly, somewhat frail appearing female patient who appears to be in no distress. HEENT: Head normocephalic. Nose and throat clear. NECK: Supple. LUNGS: Clear. HEART: Regular rate and rhythm. ABDOMEN: Bowel sounds present. EXTREMITIES: Lower extremities demonstrate palpable distal pulses. There are some sutures in place in left lateral ankle wound. There is some necrotic wet eschar present, some yellow drainage, minimal granulation tissue, some surrounding erythema. CLINICAL IMPRESSION: 1. Wound infection, left lateral ankle. 2. History of osteomyelitis of the lateral malleolus. 3. Chronic lymphedema. 4. Peripheral vascular disease. RECOMMENDATIONS: The patient is started on intravenous antibiotic therapy. She may require some additional debridement. Dr. Levy has been consulted. Agree with intravenous antibiotic therapy. We will recommend a border foam at this time for protection. It may be worth checking an arterial Doppler with a history of peripheral vascular disease. She did have arterial Dopplers approximately 11 years ago that demonstrated normal flow. Of note, the patient is very concerned about attending the of her sister tomorrow. We will review this with the other physicians involved to see if this is a feasible option for her. I appreciate being asked to see her in consultation. ��������������������������������������������� <ELECTRONICALLY SIGNED> ���������������������������������������� By: Agapito Briggs MD ��������������������������������������������� 12/25/18 0744 1851 0144 Agapito Briggs MD /nt
== END 2018-12-22 18:56 | disposition home health service (06) | DRG 540 ==
LOC: ER 17:01 → 4W 19:56 → EROBS 19:56 → 4W 20:58
PROVIDERS: Nurse Practitioner; Nurse Practitioner Acute Care; Specialist; ADMIT Internal Medicine
PROC: 05HY33Z Insertion of Infusion Device into Upper Vein, Percutaneous Approach (ICD-10-PCS; principal; 2018-12-21)
DX: M86.8X6 Other osteomyelitis, lower leg (principal); N17.9 Acute kidney failure, unspecified; L03.116 Cellulitis of left lower limb; I10 Essential (primary) hypertension; E78.00 Pure hypercholesterolemia, unspecified; I73.9 Peripheral vascular disease, unspecified; I48.91 Unspecified atrial fibrillation; E78.5 Hyperlipidemia, unspecified; I87.8 Other specified disorders of veins; I89.0 Lymphedema, not elsewhere classified; D50.9 Iron deficiency anemia, unspecified; E55.9 Vitamin D deficiency, unspecified; E53.8 Deficiency of other specified B group vitamins; E03.9 Hypothyroidism, unspecified; K59.00 Constipation, unspecified; Z90.49 Acquired absence of other specified parts of digestive tract; Z95.820 Peripheral vascular angioplasty status with implants and grafts; Z88.2 Allergy status to sulfonamides; Z88.8 Allergy status to other drugs, medicaments and biological substances; Z85.3 Personal history of malignant neoplasm of breast; Z98.42 Cataract extraction status, left eye; Z98.41 Cataract extraction status, right eye
CPT/HCPCS: 10040

== ENCOUNTER → 2018-12-21 | Outpatient (CLI) | payer OTHER ==
[~2018-12-21] MED LIST changes: +BIOTIN5000 MCG PO; +DIOVAN160 MG PO; +IRON325 PO; +KLOR-CON 1010 MEQ PO; +MEROPENEM 1 GM V1 GM IVPB; +NORVASC5 MG PO; +VITAMIN B-12500 MCG PO; +VITAMIN B6 PO
[2018-12-21 14:10] VITALS: BP 126/56
--- NOTE | 2018-12-21 15:48 | NUR ---
VASCULAR ACCESS TEAM PICC ORDERED FOR PHLEBOTOMY PROGRAM COORDINATOR ANTIBIOTICS. PATIENT CONSENTED FOR PROCEDURE. PICC ATTEMPTED X 1 WITH [employer].S GUIDANCE PER HOSPITAL P&P. PICC UNABLE TO ADVANCE PAST 25CM [place] WITH MULTIPLE ATTEMPTS. LINE PULLED OUT AND TRIMMED TO 12CM. LINE PLACED A MIDLINE WITH 1CM EXTERNAL. LINE FLUSHES AND DRAWS EASILY. MIDLINE RELEASED FOR IMMEDIATE USE. DR MELO NOTIFIED ABOUT THE NEED FOR IR TO PLACE A PICC LINE IF IT IS NEEDED IN THE FUTURE.
--- NOTE | 2018-12-21 17:03 | NUR ---
PATIENT HERE FOR PICC LINE PLACEMENT AND 1ST DOSE OF MEROPENEM IV. SON ADRIAN ACCOMPANIED PATIENT. IV TEAM ATTEMPTED A PICC LINE BUT UNABLE TO THREAD PAST THE SHOULDER SO CHANGED TO MIDLINE. TOLERATED MEROPENEM WITHOUT INCIDENT. AFTER INFUSION PATIENT'S TEMP 102.2. NOTIFIED DR. MELO AND RECEIVED ORDER TO TAKE TO ED. ESCORTED PATIENT IN STABLE CONDITION TO ED VIA WC. REPORT GIVEN TO BRAVO.
== END ==
LOC: OPONC 13:52
DX: M86.162 Other acute osteomyelitis, left tibia and fibula (principal); B95.2 Enterococcus as the cause of diseases classified elsewhere
CPT/HCPCS: 95000

== ENCOUNTER → 2019-01-02 | Outpatient (CLI) | payer OTHER ==
[~2019-01-02] MED LIST changes: +CARDIZEM CD240 MG PO; +CEFEPIME 22 GM/100 M IV; +COZAAR 25 MG TA25 M1 PO; +FIRVANQ50 MG/1 ML PO; +MEROPENEM 1 GM V1 GM IVPB; +METOPROLOL SUCC25 M1 PO
== END ==
LOC: HYPER 07:17
DX: I87.332 Chronic venous hypertension (idiopathic) with ulcer and inflammation of left lower extremity (principal); L97.322 Non-pressure chronic ulcer of left ankle with fat layer exposed; I87.2 Venous insufficiency (chronic) (peripheral); L97.811 Non-pressure chronic ulcer of other part of right lower leg limited to breakdown of skin; B36.9 Superficial mycosis, unspecified; L84 Corns and callosities; I73.9 Peripheral vascular disease, unspecified

== ENCOUNTER 2019-01-08 12:58 | Inpatient (IN) | payer OTHER ==
[~2019-01-08] VITALS: Ht 165.1 cm; Wt 69.2 kg
[2019-01-08] VITALS (7 sets, daily range): BP systolic 139–165; BP diastolic 69–99
--- NOTE | ~2019-01-08 | CRIT ---
[facility] [place] [address] CRITICAL CARE NOTE Name: HAYDER GUTIERREZ Room #: 214-P ADM IN M.R.#: [id number] Admission: 01/08/19 ������������������ Attend Phys: Raf Cuevas MD Discharge: ������������������ Date of : 31 Report #: [id number] THIS REPORT FOR: //name// CC: Raf Panquynh Hyatt DATE OF SERVICE: 01/09/2019 REASON FOR CONSULTATION: Atrial fibrillation with rapid ventricular response. HISTORY OF PRESENT ILLNESS: This is a very pleasant female, well known to me with a history of paroxysmal atrial fibrillation, vascular peripheral disease, hypertension and lower extremity osteomyelitis and ulcers, who was admitted for evaluation and assessment and found to be in atrial fibrillation with rapid ventricular response. The patient states she has not felt well for months and presented for assessment. She does have hypothyroidism, which is present since initiation of amiodarone. The patient states she has not had any chest pain, pressure, tightness or heaviness and is having palpitations occasionally. She states that the last day prior to admission, her heart went "crazy." She did not have any chest pain with this, but did feel more short of breath and tired. She does not have any changes in her lower extremity issues, although she has had this chronic osteomyelitis. She has a chronically elevated BNP and now anemic on this admission at 7.7. ALLERGIES: BACTRIM. PAST MEDICAL HISTORY: Significant for: 1. Paroxysmal atrial fibrillation. 2. Hypertension. 3. Osteomyelitis. 4. Peripheral vascular disease. 5. Dyslipidemia. PAST SURGICAL HISTORY: Significant for: 1. Electrical cardioversion in September 2017. 2. Breast biopsy. 3. Cataracts. 4. Total knee replacement. 5. Tonsillectomy and adenoidectomy. 6. Lower extremity stenting. 7. Right breast biopsy and lumpectomy with lymph node dissection. 8. Colonoscopy. 9. Left ankle surgery one month ago. 10. Complete dental extraction. FAMILY HISTORY: Significant for peripheral vascular disease and coronary artery [facility] [address] [place] [address] CRITICAL CARE NOTE Name: HAYDER GUTIERREZ Room #: 214-P [facility] IN M.R.#: [id number] Admission: 01/08/19 ������������������ Attend Phys: Raf Cuevas MD Discharge: ������������������ Date of : 31 Report #: [id number]. SOCIAL HISTORY: The patient does not smoke, consume alcohol or use recreational drugs. Lives with her spouse. Electrocardiogram: Atrial fibrillation with rapid ventricular response and nonspecific ST-T wave changes. REVIEW OF SYSTEMS: Except for symptoms previously mentioned and those commensurate with comorbid state, the 10-point review of system is negative. LABORATORY DATA: Noted and reviewed in the chart. MEDICATIONS: Apixaban, Neurontin, meropenem, amlodipine, potassium chloride, valsartan, vitamin B12, ferrous sulfate, Osteo Bi-Flex, Lasix, Zocor, Flonase, biotin, calcium citrate, vitamin D, amiodarone 100 mg p.o. every other day, levothyroxine 0.025 daily, Ultram, Tylenol. PHYSICAL EXAMINATION: GENERAL: A well-developed white female, resting comfortably, in no acute distress. VITAL SIGNS: Noted and reviewed in the chart. HEENT: Normocephalic, atraumatic. Pupils are equal, round, reactive to light and accommodation. Extraocular muscles are intact. Sclerae and conjunctivae are anicteric. NECK: JVD is normal. Carotid upstrokes are bilaterally symmetrical. No bruits are heard. No thyromegaly. No lymphadenopathy. LUNGS: Clear to auscultation. No wheezes, rhonchi or crackles. No CVA tenderness. HEART: Irregularly irregular rhythm with controlled ventricular response. Soft systolic murmur noted at the apex. ABDOMEN: Soft, nontender, nondistended. Normal bowel sounds. EXTREMITIES: Demonstrates results of a recent surgery, elevation with some edema. NEUROLOGIC: Cranial nerves 2-12 are grossly normal and symmetrical. PSYCHIATRIC: Alert, oriented with normal affect. SKIN: Warm and dry. IMPRESSION AND PLAN: 1. Paroxysmal atrial fibrillation with rapid ventricular response. We will check amiodarone levels to make sure where she stands on this every other day dosing. In addition to this, we will use oral rate control after IV rate control to try and bring her rate down. At the moment, she is anticoagulated and there should not be a problem if she converts on her own. 2. Dyslipidemia, not checked for some time. She is on Zocor and she does follow the [place] step 1 diet to the best of her abilities. [address] [address] CRITICAL CARE NOTE Name: HAYDER GUTIERREZ Room #: 214-P ADM IN M.R.#: [id number] Admission: 01/08/19 ������������������ Attend Phys: Raf Cuevas MD Discharge: ������������������ Date of : 31 Report #: [id number] 3. Hypertension, seems to be fairly well controlled on current regimen. No need to make any other changes. 4. Peripheral vascular disease, status post carotid artery duplexes with only mild plaquing noted and lower extremity stenting. 5. 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 She is on supplementation. We will need to increase that accordingly. 6. Anemia 7.7. This is a factor for her atrial fibrillation with rapid rate. I would transfuse to try and get the hemoglobin as close to 10 g/dL or higher as possible. ��������������������������������������������� ���������������������������������������� By: ��������������������������������������������� 1223 0205 Matthew Warren MD /nt
--- NOTE | ~2019-01-08 | HC ---
[facility] [place] [address] CONSULTATION Name: HAYDER GUTIERREZ Room #: 214-P ADM IN M.R.#: [id number] Admission: 01/08/19 ������������������ Attend Phys: Raf Cuevas MD Discharge: ������������������ Date of : 31 Report #: [id number] THIS REPORT FOR: //name// CC: Raf Panquynh Hyatt DATE OF SERVICE: 01/11/2019 HISTORY OF PRESENT ILLNESS: The patient is an 88-year-old white female with a history of atrial fibrillation, heart failure, hypertension, generalized weakness, recent left ankle surgery for left fibular osteomyelitis. The patient was admitted with increased weakness, diagnosed with atrial fibrillation with rapid ventricular rate, placed on diltiazem drip. She also had hyponatremia of 128. She has been diagnosed with C. diff colitis. She is being followed by Cardiology as well as Infectious Disease. She is being transitioned to p.o. diltiazem, anticoagulated on Eliquis, low dose amiodarone. She is on IV cefepime. We are seeing her in rehabilitation medicine consultation. She has osteomyelitis, left fibula, underwent recent surgical intervention in December by Dr. Levy, in chart note it is noted to be partial weightbearing. PAST MEDICAL HISTORY: Also includes hypertension, bilateral knee surgeries with hardware, right breast biopsy with cancer, right breast lumpectomy, peripheral vascular disease, bilateral lower extremity cellulitis. MEDICATIONS: Please see the full medication listing. This includes vitamins, herbals, and supplements per report. ALLERGIES: TRIMETHOPRIM, SULFAMETHOXAZOLE. HABITS: No history of tobacco abuse. SOCIAL HISTORY: Lives in an apartment with his , 2-3 steps in. She had been utilizing a front-wheeled walker with a recent left ankle surgery. has Parkinson's disease and recently was just moved into assisted living facility. REVIEW OF SYSTEMS: Did not offer any current complaints of chest pain, shortness of breath or abdominal discomfort. Complains of overall generalized weakness. PHYSICAL EXAMINATION: GENERAL: An 88-year-old white female in no obvious distress. VITAL SIGNS: Last recorded temperature 97.7, pulse 91, respirations 17, blood pressure 151/90. The patient is alert. She appears appropriate. HEENT: Appeared to be benign. NEUROLOGIC: Facies are symmetric. Functional range of motion of both upper [facility] [address] [place] [address] CONSULTATION Name: HAYDER GUTIERREZ Room #: 214-P [facility] IN M.R.#: [id number] Admission: 01/08/19 ������������������ Attend Phys: Raf Cuevas MD Discharge: ������������������ Date of : 31 Report #: [id number] extremities. Strength is grade 3+ to 4-/5. Lower extremities functional range of motion, strength is grade 3+ to 4-/5. Tone appeared intact. She was min assist sit to stand. Gait has been 3 steps min assist with a walker. ASSESSMENT: An 88-year-old white female with the following problem list: 1. Medical complexity with generalized debilitation. 2. Atrial fibrillation with rapid ventricular response, has been on diltiazem drip. 3. Left fibular osteomyelitis, on IV antibiotics, has been partial weightbearing. 4. Anticoagulation, on Eliquis. 5. Hypertension. 6. Hyperlipidemia. 7. Carotid artery disease. 8. Peripheral arterial disease. 9. Clostridium difficile colitis. PLAN: Insurance will need to be checked regarding rehab therapy options. Note that her recently moved to [place] as he has Parkinson's disease and she was actually caring for him. Case management need to further involved. We will continue to follow for now. ��������������������������������������������� ���������������������������������������� By: ��������������������������������������������� 1208 1325 oRny Laguna MD /JILLIAN
[~2019-01-08 12:58] MED LIST changes: -CARDIZEM CD240 MG PO; -CEFEPIME 22 GM/100 M IV; -COZAAR 25 MG TA25 M1 PO; -FIRVANQ50 MG/1 ML PO; -METOPROLOL SUCC25 M1 PO
[2019-01-08 13:41] LABS: ABSOLUTE NEUTROPHILS 5.3 thou/uL (1.4-8.2); BASOPHILS 0.7 % (0.0-2.0); EOSINOPHILS 0.2 % (0.0-3.0); HEMATOCRIT 27.4 % (37.0-47.0); HEMOGLOBIN 9.2 gm/dL (12.0-15.0); LYMPHOCYTES 6.9 % (24.0-44.0); MCH 31.3 pg (26.0-34.0); MCHC 33.7 g/dL (28.0-37.0); MONOCYTES 7.9 % (1.0-8.0); PLATELET COUNT 451 thou/uL (150-400); POLYS 84.3 % (36.0-66.0); RBC 2.94 mil/uL (4.20-5.00); RDW 14.4 % (10.5-14.5); WBC 6.3 thou/uL (4.0-11.0)
[2019-01-08 13:48] LABS: ANION GAP 9 mmol/L (7-16); BUN 22 mg/dL (7-18); CALCIUM 8.7 mg/dL (8.5-10.1); CHLORIDE 93 mmol/L (98-107); CO2 26 mmol/L (21-32); GLUCOSE 113 mg/dL (74-106); POTASSIUM 4.7 mmol/L (3.5-5.1); SODIUM 128 mmol/L (136-145)
[2019-01-08 13:57] LABS: MAGNESIUM 1.9 mg/dL (1.8-2.4); TROPONIN-I <0.06 ng/mL (<0.06)
[2019-01-08 14:35] LABS: URINE BILIRUBIN NEGATIVE (Negative); URINE BLOOD NEGATIVE (Negative); URINE CLARITY CLEAR; URINE COLOR YELLOW; URINE GLUCOSE-RANDOM* NEGATIVE (Negative); URINE KETONES NEGATIVE (Negative); URINE LEUKOCYTES-REFLEX NEGATIVE (Negative); URINE NITRITE-REFLEX NEGATIVE (Negative); URINE PROTEIN (DIPSTICK) NEGATIVE (Negative); URINE SPECIFIC GRAVITY <= 1.005 (1.005-1.035); URINE UROBILINOGEN 0.2 E.U./dl (0.2-1.0)
[2019-01-08 18:18] LABS: ALBUMIN 2.6 g/dL (3.4-5.0); TOTAL PROTEIN 7.6 g/dL (6.4-8.2)
--- NOTE | 2019-01-08 19:38 | NUR ---
PATIENT ADMITED FROM ER. PT ALERT AND ORIENTED. ADMISSION HX AND ASSESSMENT COMPLETED. ORDERS NOTED. WILL CONTINUE TO MONITOR.
[2019-01-09 00:10] VITALS: BP 124/72
[2019-01-09 03:14] LABS: HEMATOCRIT 22.2 % (37.0-47.0); HEMOGLOBIN 7.7 gm/dL (12.0-15.0); MCH 32.2 pg (26.0-34.0); MCHC 34.9 g/dL (28.0-37.0); MCV 92.2 fL (80.0-100.0); RBC 2.4 mil/uL (4.20-5.00); RDW 14.4 % (10.5-14.5); WBC 6.6 thou/uL (4.0-11.0)
[2019-01-09 03:19] LABS: CALCIUM 7.5 mg/dL (8.5-10.1); CREATININE 0.9 mg/dL (0.6-1.0); MAGNESIUM 1.7 mg/dL (1.8-2.4); POTASSIUM 4.7 mmol/L (3.5-5.1)
--- NOTE | 2019-01-09 03:53 | NUR ---
ASSESSMENT CHARTED. VSS. PT ABDA PAIN, N/V, DIZZINESS. ON AND OFF SOA PT STATED, COMPLIANCE MGR NOTIFIED, 2 L NC. CARDIZEM GTTS PER EMAR. LLE WOUND PICTURE DOCUMENTED WOUND CARE CONSULTED. PT SLEEPING WELL. PLAN FOR LABS THIS AM. WILL CONTINUE TO MONITOR AND WITH POC.
[2019-01-09 04:51] VITALS: BP 114/58
[2019-01-09 07:31] VITALS: BP 135/88
--- NOTE | 2019-01-09 08:39 | EKG ---
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: regine : 1930 Requested By: Gill Royal Order Number: [id number] MD: Jerad Lei Measurements Intervals [place] Rate: 115 P: [place]: QRS: -52 QRSD: 83 T: 5 QT: 334 QTc: 462 Interpretive Statements Atrial fibrillation Left anterior fascicular block Poor R wave progression Compared to ECG 09/16/2017 12:57:31 Low QRS voltage now present Sinus rhythm no longer present Electronically Signed On 01-09-2019 8:39:33 CDT by Jerad Lei [email or web address] ��������������������������������������������� <ELECTRONICALLY SIGNED> ���������������������������������������� By: Jerad Lei MD, [facility] ��������������������������������������������� 01/09/19 0839 1342 1342 Jerad Lei MD, [facility] /EPI
--- NOTE | 2019-01-09 08:55 | EKG ---
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 : 1930 Requested By: Marilin Escalona Order Number: [id number] MD: Jerad Lei Measurements Intervals [place] Rate: 100 P: [place]: QRS: -55 QRSD: 90 T: 1 QT: 382 QTc: 493 Interpretive Statements Atrial fibrillation Leftward axis Low voltage, extremity leads Borderline prolonged QT interval Compared to ECG 09/16/2017 12:57:31 No significant change was found Electronically Signed On 01-09-2019 8:55:38 CDT by Jerad Lei [email or web address] ��������������������������������������������� <ELECTRONICALLY SIGNED> ���������������������������������������� By: Jerad Lei MD, [facility] ��������������������������������������������� 01/09/19 0855 0 0 Jerad Lei MD, [facility] /EPI
--- NOTE | 2019-01-09 10:16 | 2DMMODE ---
[facility] [address] [place] [address] 2 D/M-MODE ECHOCARDIOGRAM Name: HAYDER GUTIERREZ Room #: 214-P [facility] IN M.R.#: [id number] ������������� Admission: 01/08/19 ������������� Attend Phys: Raf Cuevas, Discharge: ��� ������������� ��� Date of : 32 Date of Service: 01/09/19 1016 �� Report #: [id number] �������� ��������������������������������������������[id number] THIS REPORT FOR: //name// APPROVED REPORT Study performed: 01/09/2019 09:11:56 EXAM: Comprehensive 2D, Doppler, and color-flow Echocardiogram Patient Location: Bedside Room #: 214 Status: routine BSA: 1.62 HR: 88 bpm BP: 135/88 mmHg Rhythm: Atrial Fibrillation Other Information Study Quality: Good Indications Weakness, Afib. Hx: HTN, HLP. 2D Dimensions RVDd: 37.48 mm IVSd: 11.33 (7-11mm) LVDd: 41.05 mm PWd: 11.50 (7-11mm) Ascending Ao: 40.95 (22-36mm) LVDs: 25.90 (25-40mm) Aortic Root: 40.29 mm Volumes Left Atrial Volume (Systole) Single Plane 4CH: 75.53 mL Single Plane 2CH: 57.53 mL LA ESV Index: 45.00 mL/m2 Aortic Valve AoV Peak Michael.: 1.17 m/s AO Peak Gr.: 5.57 mmHg LVOT Max P.07 mmHg LVOT Max V: 1.01 m/s Mitral Valve MV Decel. Time: 149.89 ms MV E Max Michael.: 1.11 m/s Pulmonary Valve [facility] [address] [place] [address] 2 D/M-MODE ECHOCARDIOGRAM Name: HAYDER GUTIERREZ Room #: 214-P ADM IN M.R.#: [id number] ������������� Admission: 01/08/19 ������������� Attend Phys: Raf Cuevas, Discharge: ��� ������������� ��� Date of : 31 Date of Service: 01/09/19 1016 �� Report #: [id number] �������� ��������������������������������������������[id number] PV Peak Michael.: 0.73 m/s PV Peak Gr.: 2.18 mmHg Tricuspid Valve TR Peak Michael.: 2.90 m/s RAP Estimate: 10.00 mmHg TR Peak Gr.: 33.81 mmHg PA Pressure: 44.00 mmHg Left Ventricle The left ventricle is normal size. There is normal LV segmental wall motion. There is normal left ventricular wall thickness. Left ventricular systolic function is normal. LVEF is 60-65%. This study is not technically sufficient to allow evaluation of the LV diastolic function due to atrial fibrillation. Right Ventricle The right ventricle is normal size. Right ventricle is hypokinetic. Atria Left atrium is moderate dilated. PFO noted with color doppler. Right atrium is moderately dilated. Aortic Valve Aortic valve is trileaflet; mildly calcified. No aortic regurgitation. There is no aortic valvular stenosis. Mitral Valve Mild mitral annular calcification. Moderate mitral regurgitation. No evidence of mitral valve stenosis. Tricuspid Valve The tricuspid valve is normal in structure. Moderate to severe tricuspid regurgitation. Estimated PAP is 40 mmHg. Pulmonic Valve The pulmonary valve is normal in structure. Trace pulmonic regurgitation. Great Vessels Aortic root is dilated at 4.0cm. Ascending aorta is dilated (4.1cm). IVC is dilated and collapses <50% with inspiration. Pericardium Small circumferential pericardial effusion. Left and right pleural effusions noted. [facility] [address] [place] [address] 2 D/M-MODE ECHOCARDIOGRAM Name: HAYDER GUTIERREZ Room #: 214-P [facility] IN M.R.#: [id number] ������������� Admission: 01/08/19 ������������� Attend Phys: Raf Cuevas, Discharge: ��� ������������� ��� Date of : 31 Date of Service: 01/09/19 1016 �� Report #: [id number] �������� ��������������������������������������������[id number] <Conclusion> Left ventricular systolic function is normal. LVEF is 60-65%. There is normal LV segmental wall motion. Both atria are moderately dilated. PFO noted with color doppler. Aortic valve is trileaflet; mildly calcified. No aortic regurgitation or stenosis. Mild mitral annular calcification. Moderate mitral regurgitation. Moderate to severe tricuspid regurgitation. Estimated pulmonary artery pressure of 40 mmHg. Ascending aorta is dilated (4.1cm). Small circumferential pericardial effusion. Left and right pleural effusions. ��������������������������������������������� <ELECTRONICALLY SIGNED> ���������������������������������������� By: Jerad Lei MD, FACC ��������������������������������������������� 01/09/19 1016 [id number] [id number] Jerad Lei MD, FACC /INF
[2019-01-09 10:42] LABS: % SATURATION 13 % (20-39); IRON 19 ug/dL (50-170); TIBC 145 ug/dL (250-450)
[2019-01-09 10:43] LABS: OBSERVED RETIC COUNT 2.59 % (0.6-2.6)
[2019-01-09 10:44] LABS: ABSOLUTE RETIC COUNT 0.0643 10^6/uL
[2019-01-09 12:07] VITALS: BP 117/77
--- NOTE | 2019-01-09 16:28 | HC ---
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 She has been on IV antibiotic therapy including meropenem since 12/22/2018. She has a left upper extremity midline catheter in place. She has had issues with venous stasis disease and has had previous venous ablation procedures. She also has peripheral vascular disease. From 12/13/2018, cultures of the left fibula revealed penicillin susceptible Enterococcus and fully susceptible Pseudomonas aeruginosa. While on meropenem, she has complained of diarrhea. I saw her last week in the outpatient clinic and recommended Imodium and probiotic. I instructed her that if that did not improve her diarrhea that she would need further evaluation and possibly hospitalization. Over the last 48 hours, she has had progressive shortness of breath. Continues to be incontinent of liquid stool. She only took one Imodium per her report. She continues with dressing changes over the left lateral ankle with no increased drainage. She has had no chest pain. Denies any cough or sputum production. No nausea or vomiting. Appetite has been poor. No dysuria or frequency. REVIEW OF SYSTEMS: A 10-point review of systems was negative other than what is reported above. PAST MEDICAL HISTORY: Chronic venous stasis disease with nonhealing wound over the lateral ankle, left leg; hyperlipidemia; hypertension; right breast cancer; peripheral vascular disease; atrial fibrillation; total knee arthroplasty; bilateral total knee arthroplasty; cholecystectomy; bilateral cataract surgery; breast lumpectomy on the right; lymph node dissection and peripheral stents in place for her peripheral vascular disease. FAMILY HISTORY: Noncontributory. SOCIAL HISTORY: Nonsmoker, no significant alcohol intake. ALLERGIES: SULFA. MEDICATIONS: As noted on her MAR including meropenem. PHYSICAL EXAMINATION: VITAL SIGNS: She was afebrile. [facility] [address] [place] [address] CONSULTATION Name: HAYDER GUTIERREZ Room #: 214-P [facility] IN M.R.#: [id number] Admission: 01/08/19 ������������������ Attend Phys: Raf Cuevas MD Discharge: ������������������ Date of : 31 Report #: [id number] GENERAL: She was tachycardic. She was fatigued. EXTREMITIES: She had 1+ peripheral edema. There is a wound over the lateral aspect of her left ankle with no surrounding cellulitis. No palpable adenopathy. HEENT: Eyes without scleral icterus. Mouth without mucositis. She was dry. NECK: Supple. LUNGS: Posterior crackles mostly in the bases. HEART: Irregular and tachycardic. ABDOMEN: Soft and nontender with no hepatosplenomegaly or mass. GENITAL RECTAL: Not performed. LABORATORY STUDIES: Chest x-ray: Congestive heart failure. Urinalysis unremarkable. Sodium 128, potassium 4.7, bicarbonate 26, creatinine 1, BUN 22, hemoglobin 9.2, white count 6.3, platelets 451,000, 84% segs, 6% lymphocytes. IMPRESSION: An 88-year-old with osteomyelitis of her left fibula, now 17 days into her treatment program who presents now with dehydration, hyponatremia, atrial fibrillation with rapid ventricular response, congestive heart failure and antibiotic-associated diarrhea. RECOMMENDATIONS: We will hold meropenem at this point. Replace fluids and electrolytes and control atrial fibrillation and treat congestive heart failure. We will see if her diarrhea resolves. If not, we will check C. difficile by PCR. Once stabilized, we will reinitiate her antibiotic therapy. ��������������������������������������������� <ELECTRONICALLY SIGNED> ���������������������������������������� By: Luis Stoner MD ��������������������������������������������� 01/09/19 1628 [id number] Luis Stoner MD /nt
--- NOTE | 2019-01-09 16:50 | NUR ---
ASSESSMENT CHARTED. PT ALERT AND ORIENTED. VSS. UP IN THE CHAIR THIS SHIFT. EVALUATED BY PHYSICAL AND OCCUPATION THERAPIST. CONTACT ISSOLATION MAINTAINED. ON CARDIZEM DRIP. SOB NOTED WITH ACTIVITY. WILL CONTINUE TO MONITOR.
[2019-01-09 21:12] VITALS: BP 138/80
[2019-01-10 01:42] VITALS: BP 138/80
--- NOTE | 2019-01-10 03:05 | NUR ---
ASSESSMENT CHARTED. VSS. PT DENIES CP, SOA, N/V, DIZZINESS. 2 L NC. CARDIZEM GTT PER EMAR. AFIB CONTROLLED. BED PAIN- CDIF +. OCCULT STOOL SENT. DAUGHTER AND FAMILY HERE TO VISIT. ISO MAINTAINED. RLE WOUND REDRESSED. BARRIER CREAM ON BOTTOM REDNESS SCARS. PLAN FOR LABS THIS AM. WILL CONTINUE TO MONITOR AND WITH POC.
[2019-01-10 04:52] LABS: HEMATOCRIT 25.5 % (37.0-47.0); HEMOGLOBIN 8.7 gm/dL (12.0-15.0); MCH 31.6 pg (26.0-34.0); MCV 92.8 fL (80.0-100.0); RBC 2.74 mil/uL (4.20-5.00); RDW 14.8 % (10.5-14.5)
[2019-01-10 05:00] LABS: CALCIUM 7.9 mg/dL (8.5-10.1); CREATININE 0.9 mg/dL (0.6-1.0); POTASSIUM 4.7 mmol/L (3.5-5.1)
[2019-01-10 05:15] VITALS: BP 123/71
[2019-01-10 08:16] VITALS: BP 151/78
[2019-01-10 11:52] VITALS: BP 144/78
--- NOTE | 2019-01-10 16:28 | NUR ---
PT IS ALERT AND ORIENTED X4. IN ISOLATION FOR C-SIFF. PT IS WEAKLUNGS ARE CLEAR TO DIM/ SOME WHEEZING NOTED ON 2 LITERS NASAL CANULA. EATING A HEART HEALTHY DIET. AND ENSURE. USES BSC TO VOID. WOUND CHAGNED ON LEFT ANKLE AND CONSULT PLACED FOR WOUND. OT/PT TO WORK WITH PT. WILL CONTINUE ONGOING NURSING CARE ON CARDIZEM DRIP FOR AFIB. CALL LIGHT WITHIN REACH IF NEEDS ASSISTANCE
[2019-01-10 16:31] VITALS: BP 182/84
[2019-01-10 19:01] VITALS: BP 155/84
--- NOTE | 2019-01-11 03:29 | NUR ---
ASSUMED PT CARE AT 1900. PT A/OX4, VITAL SIGNS STABLE, SOME WEAKNESS, AND SOB WITH ACTIVITY. PT COMPLAINED OF SOME GENERALIZED PAIN. PAIN MEDICATION GIVEN WHICH SEEMED TO HELP. PT CALLS APPROPRIATELY FOR HELP. CONTACT PRECUATIONS MAINTAINED. PT RESTED WELL THROUGH THE NIGHT. CARDIZEM DRIP MAINTAINED. PROGRESSING TOWARD PLAN OF CARE. WILL CONTINUE TO MONITOR.
[2019-01-11 03:45] VITALS: BP 136/79
[2019-01-11 05:14] LABS: HEMATOCRIT 25.1 % (37.0-47.0); HEMOGLOBIN 8.5 gm/dL (12.0-15.0); MCH 32.1 pg (26.0-34.0); MCHC 33.7 g/dL (28.0-37.0); MCV 95.2 fL (80.0-100.0); RBC 2.64 mil/uL (4.20-5.00); RDW 15.1 % (10.5-14.5); WBC 5.8 thou/uL (4.0-11.0)
[2019-01-11 05:26] LABS: CALCIUM 8.3 mg/dL (8.5-10.1); CREATININE 0.8 mg/dL (0.6-1.0); MAGNESIUM 1.9 mg/dL (1.8-2.4)
[2019-01-11 06:02] LABS: POTASSIUM 5.2 mmol/L (3.5-5.1)
[2019-01-11 07:50] VITALS: BP 151/80
--- NOTE | 2019-01-11 08:52 | NUR ---
ASSUMED CARE OF PT APPROX 0715, IS A&0X4, PT STATES SHE STILL FEELS VERY WEAK, MED CHANGES COMING DOWN, CARDIZEM TO BE TITRATED, B/P'S HIGH AND HR STILL IN 90S, REPORT OF SBA X 1, IS NOT IMPULSIVE, HAS DRESSING CHANGES FOR BLE WOUNDS WILL ATTEND TO LATER IN DAY. ENCOURAGED PT TO USE CALL LIGHT FOR ANY NEEDS. TALKED W/CARDIOLOGY ABOUT POSSIBLY RESTARTING HOME FUROSEMIDE; ACKNOWLEDGED. WILL CONTINUE TO MONITOR
[2019-01-11 12:05] VITALS: BP 111/66
--- NOTE | 2019-01-11 14:36 | NUR ---
WOUND CONSULT; LEFT LAT ANKLE, FIBRINOUS COVERED, SCANT DRAINAGE, NO ERYTHEMA, NON TENDER. RECOMMENDATION; DANTE MENDOZA KERLIX M/W/F DISCUSSED WITH RN
--- NOTE | 2019-01-11 15:22 | NUR ---
FAXED REFERRAL TO [facility] SPOKE WITH KATIA IN ADM SHE RECEIVED REFERRAL AND CAN ACCEPT AND WILL SUBMIT FOR AUTH. ANTICIPATE DC IN 1-2 DAYS. DCP TO FOLLOW.
--- NOTE | 2019-01-11 15:31 | NUR ---
met with patient. she admits with afib/rvr/weakness. Patient reports lives alone in apt. her with parkinsons and recently staying at [facility]. 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 Discussed post acute care and gave [facility] list to review. Patient wanting to transtion to [facility]. Patient with not an acute rehab need for [facility]. Sp with son regarding [facility] list in room. [facility] following.
--- NOTE | 2019-01-11 16:05 | NUR ---
HAVE ENTERED PATIENTS ROOM 3X WITHOUT A COMMITTMENT FOR POST ACUTE CARE. SHE REPORTS [facility]. SENT REFERRALS FOR REVIEW.
[2019-01-11 16:15] VITALS: BP 139/76
--- NOTE | 2019-01-11 16:51 | NUR ---
FAXED REFERRAL TO [facility] LEFT MSG WITH AMAYA IN ADM TO REVIEW AND THAT PT TO DC IN 1-2 DAYS AND THAT FAMILY LOOKING AT ANOTHER FACILITY SO NOT TO SUBMIT FOR AUTH TIL FAMILY MAKES DECISION IF THEY CAN ACCEPT. DCP TO F/U WITH FACILITY IN THE AM.
[2019-01-11 19:24] VITALS: BP 161/108
--- NOTE | 2019-01-12 03:33 | NUR ---
ASSUMED PT CARE AT 1900. PT A/OX4, VITAL SIGNS STABLE, ASSESSMENT CHARTED. NO COMPLAINTS OF PAIN. PT SLEPT IN RECLINER THROUGH THE NIGHT. FALL PRECAUTIONS MAINTAINED. PT CALLS APPROPRIATELY. CONTACT PRECAUTIONS MAINATINED. PROGRESSING TOWARD PLAN OF CARE. WILL CONTINUE TO MONITOR.
[2019-01-12 03:37] VITALS: BP 115/71
[2019-01-12 03:44] VITALS: BP 110/68
[2019-01-12 05:13] LABS: HEMATOCRIT 25.6 % (37.0-47.0); HEMOGLOBIN 8.6 gm/dL (12.0-15.0); MCH 31.6 pg (26.0-34.0); MCHC 33.6 g/dL (28.0-37.0); MCV 94.2 fL (80.0-100.0); RBC 2.72 mil/uL (4.20-5.00); RDW 14.9 % (10.5-14.5)
[2019-01-12 05:23] LABS: CALCIUM 8.1 mg/dL (8.5-10.1); CREATININE 0.8 mg/dL (0.6-1.0); MAGNESIUM 1.8 mg/dL (1.8-2.4); POTASSIUM 4.9 mmol/L (3.5-5.1)
[2019-01-12 07:27] VITALS: BP 115/70
[2019-01-12 12:06] LABS: AMIODARONE 0.6 ug/mL (1.0-2.5); DES-AMIODARONE 0.5 ug/mL (1.0-2.5)
--- NOTE | 2019-01-12 13:48 | NUR ---
KHADIJAH reviewed chart and spoke with nursing and attending physician. Pt is progressing towards goals for discharge to post-acute. Will need insurance authorization. [facility] can both accept pt from a clinical standpoint. KHADIJAH met with pt at bedside to provide update. Pt now requesting a referral to [facility]. Pt states she is not ready for discharge today. KHADIJAH explained that insurance auth will need to be obtained for SNF placement once a facility has been chosen. town planner faxed referral to [facility], who can also accept. KHADIJAH is following to assist as needed with discharge planning.
[2019-01-12 20:07] VITALS: BP 134/82
--- NOTE | 2019-01-13 04:16 | NUR ---
A/O X 4.DENIES PAIN AND SOB.O2 2L NC.PT PREFERS TO SLEEP ON THE RECLINER.PT STATES SHE CAN'T GET COMFORTABLE IN BED.UP WITH ASSIST TO THE BEDSIDE COMMODE.LEFT ANKLE DRESSING NOTED.CLEAN,DRY AND INTACT.MONITOR SHOWS AFIB.WILL MONITOR AND CONTINUE POC.
[2019-01-13 04:49] VITALS: BP 108/54
[2019-01-13 05:15] LABS: HEMATOCRIT 25.6 % (37.0-47.0); HEMOGLOBIN 8.9 gm/dL (12.0-15.0); MCH 32.7 pg (26.0-34.0); MCHC 34.7 g/dL (28.0-37.0); RBC 2.72 mil/uL (4.20-5.00); RDW 14.7 % (10.5-14.5)
[2019-01-13 05:25] LABS: CALCIUM 8.6 mg/dL (8.5-10.1); CREATININE 0.9 mg/dL (0.6-1.0)
[2019-01-13 08:00] VITALS: BP 107/56
[2019-01-13 12:13] VITALS: BP 143/89
[2019-01-13 15:23] VITALS: BP 135/65
--- NOTE | 2019-01-13 15:43 | NUR ---
VSS REMAINS AFIB WITH VR 75-90,PVC'S, NO FURTHER RVR SEEN. LUNGS CLEAR AND DIMINISHED. O2 SAT RA IS 95-96%. PT CONTINUING TO HAVE 4 LOOSES STOOLS/SHIFT, REMAINS ON CDIFF ISOLATION. PT UP TO BSC WITH SBA/ CONTACT GUARD ASSIST, STEADY NON FEET. WILL CONTINUE TO MONITER AND CARE FOR PT PER PLAN OF CARE
[2019-01-13 20:01] VITALS: BP 110/54
[2019-01-14 04:57] VITALS: BP 127/56
--- NOTE | 2019-01-14 06:01 | NUR ---
ASSESSMENTS CHARTED. PATIENT UP IN CHAIR DURING SHIFT. DID NOT WANT TO BE IN BED. AFIB ON TELEMETRY. DENIED PAIN. UP WITH ASSIST TO BSC. MAINTAIN ISOLATION FOR CDIFF. FALL PRECAUTIONS IN PLACE.
[2019-01-14 08:00] VITALS: BP 106/76
[2019-01-14 12:22] VITALS: BP 116/57
[2019-01-14 15:00] VITALS: BP 96/61
--- NOTE | 2019-01-14 15:50 | NUR ---
VSS REMAINS AFIB WITH VR 80-120 DEPENDING ON ACTIVITY. LUNGS CLEAR RA SAT IS 96%. PT UP TO BSC TODAY FOR BM X3, STOOL GETIING MORE FIRM, ALSO DIEURESING WELL. PT IS GETTING UP TO BSC WITH ASSIST AND STEADY ON FEET WITH ASSIST. WILL CONTINUE TO MONITER AND CARE FOR PT PER PLANOF CARE
[2019-01-15 04:11] LABS: CALCIUM 8.5 mg/dL (8.5-10.1); CREATININE 1.2 mg/dL (0.6-1.0); POTASSIUM 4.3 mmol/L (3.5-5.1)
[2019-01-15 05:05] VITALS: BP 106/64
--- NOTE | 2019-01-15 06:18 | NUR ---
PATIENT ON RECLINER AND PREFERS THE RECLINER THAN THE BED.PT STATES SHE WANTS TO WALK IN THE [facility] IN THE MORNING.UNABLE TO SLEEP WELL.MONITOR SHOWS AFIB.POSSIBILITY OF GOING TO [facility] TODAY.WILL MONITOR AND CONTINUE POC.
[2019-01-15 08:20] VITALS: BP 108/52
[2019-01-15] MEDS ORDERED: FIRVANQ50 MG/1 ML PO (09:35)
[2019-01-15] MEDS ORDERED: METOPROLOL SUCC25 M1 PO (09:36)
[2019-01-15] MEDS ORDERED: CARDIZEM CD240 MG PO (09:37)
[2019-01-15] MEDS ORDERED: COZAAR 25 MG TA25 M1 PO (09:37)
--- NOTE | 2019-01-15 11:29 | HC ---
[facility] [place] [address] [place] [address] CONSULTATION Name: HAYDER GUTIERREZ Room #: 214-P ADM IN M.R.#: [id number] Admission: 01/08/19 ������������������ Attend Phys: Raf Cuevas MD Discharge: ������������������ Date of : 31 Report #: [id number] THIS REPORT FOR: //name// CC: Raf Panquynh Hyatt DATE OF SERVICE: 01/11/2019 WOUND CARE CONSULTATION PERSONAL PHYSICIAN: Dr. Cuevas. CHIEF COMPLAINT: Left lateral ankle ulcer. HISTORY OF PRESENT ILLNESS: This 88-year-old white female who has been a longtime patient of mine who we have been following for a chronic wound on the left lateral ankle with underlying osteomyelitis. The patient is now status post left lateral fibular debridement several days ago and is undergoing IV antibiotic therapy. The patient has a longstanding history of venous insufficiency and peripheral vascular disease. The patient states that she was admitted to the hospital for shortness of breath and was found to be in rapid atrial fibrillation which was treated with IV diltiazem. The patient also has complained of large amounts of liquid stools and is currently under the care of Infectious Disease doctor, Dr. Luis Stoner. We have been asked to follow the patient for the chronic ulcer on her left lateral ankle. The patient does complain of mild pain associated with the ankle ulcer, worse when she is ambulating, better when she is at rest and elevating the leg. The patient denies radiation of the pain. The patient describes the pain as sharp and stabbing. The patient states that she has had a very poor appetite recently but denies nausea or vomiting. PAST MEDICAL HISTORY: Chronic venous stasis with chronic ulcer of left lateral ankle, hyperlipidemia, hypertension, peripheral vascular disease, atrial fibrillation, right breast cancer. CURRENT MEDICATIONS: Multiple, I reviewed the patient's medication list. DRUG ALLERGIES: BACTRIM/SULFA. SOCIAL HISTORY: The patient does not smoke or drink alcohol. FAMILY HISTORY: Not pertinent to current medical condition. REVIEW OF SYSTEMS: CONSTITUTIONAL: The patient denies fevers or chills. NEUROLOGIC: The patient with overall generalized weakness, but no isolated [facility] [address] [place] [address] CONSULTATION Name: HAYDER GUTIERREZ Room #: 214-P [facility] IN M.R.#: [id number] Admission: 01/08/19 ������������������ Attend Phys: Raf Cuevas MD Discharge: ������������������ Date of : 31 Report #: [id number] weakness throughout the legs. EYES: No complaints. ENT: No complaints. CARDIAC: The patient was admitted for palpitations, but denies actual chest pain, but does have chronic peripheral edema. RESPIRATORY: The patient denies shortness of breath, cough or wheeze, but was short of breath upon admission. GASTROINTESTINAL: The patient has chronic loose stools, but no nausea, vomiting or abdominal pain. GENITOURINARY: The patient denies urgency or frequency. MUSCULOSKELETAL: No complaints. SKIN: Chronic ulcer, left lateral ankle. PHYSICAL EXAMINATION: VITAL SIGNS: Temperature 36.7, pulse 91, respirations 17, BP 127/56. GENERAL: This is an alert and oriented x 3, chronically ill-appearing white female who is in mild distress secondary to symptoms. HEENT: Normocephalic, atraumatic. Mucous membranes are somewhat dry. Pupils are round. Sclerae are white. NECK: Supple, nontender. LUNGS: Clear. HEART: Irregularly irregular, without murmur. ABDOMEN: Soft, nontender. EXTREMITIES: The patient moves all extremities without difficulty. The patient has 1-2+ edema bilateral lower extremities, left greater than right. Distal pulses are 1+. On the left lateral ankle, there is a chronic ulcer, which is 100% slough filled with palpable bone in the central portion. Subcutaneous tissues are visible. There is moderate amount of serosanguineous drainage noted without significant odor. Bonnie-wound now is intact. No significant undermining or tunneling. Left foot heel and toes were all without ulcerations. Right lower extremity is without ulcerations. The patient also was noted to have an unstageable decubitus ulcer in the right gluteal region, which is 100% eschar without signs of infection. NEUROLOGIC: Cranial nerves 2-12 grossly intact. Motor and sensory are grossly intact. LABORATORY VALUES: White count 5.8, hemoglobin 8.5, albumin is 2.6, prealbumin was 12.3. IMPRESSION: 1. Chronic ulceration, left lateral ankle with underlying osteomyelitis, which is chronic, now status post debridement. 2. Chronic venous insufficiency with vulp-as-[id number] edema. 3. History of peripheral vascular disease with previous peripheral stent placement. 4. Atrial fibrillation with a history of a rapid ventricular response, now [address] [address] CONSULTATION Name: HAYDER GUTIERREZ Room #: 214-P ADM IN M.R.#: [id number] Admission: 01/08/19 ������������������ Attend Phys: Raf Cuevas MD Discharge: ������������������ Date of : 31 Report #: [id number] resolved. 5. Generalized weakness. 6. Chronic diarrhea. 7. Protein-calorie malnutrition - severe with a prealbumin of 13. 8. Generalized debility. 9. Unstageable decubitus ulcer present on admission in the right gluteal region. PLAN: Given the amount of slough within the ulcer, we will add Medihoney to the ulcer bed, cover with dry gauze, changes every other day. We will use Kerlix and Jimmy for control of mild edema. We will have the patient elevate her leg as much as possible. We will use moisturizing lotion to the right gluteal ulcer, will have patient on low air loss mattress, and will be turned every 2 hours. Continue all other current medications. We will try to maximize the patient's oral protein supplementation for healing. We will utilize physical and occupational therapies as patient is able for strengthening. I will continue to follow the patient. ��������������������������������������������� <ELECTRONICALLY SIGNED> ���������������������������������������� By: Marco A Smith MD ��������������������������������������������� 01/15/19 1129 [id number] [id number] Marco A Smith MD /nt
[2019-01-15] MEDS ORDERED: CEFEPIME 22 GM/100 M IV (12:57)
[2019-01-15 12:58] VITALS: BP 83/50
--- NOTE | 2019-01-15 13:03 | NUR ---
PT DISCHARGING TODAY TO [facility] FAXED DC ORDERS/SUMMARY TO FACILITY SPOKE WITH KATIA DC ORDERS RECEIVED AND TRANSPORT ARRANGED FOR 1300. NOTIFIED PT'S SON (ADRIAN) OF DC AND TIME OF TRANSPORT. UNIT NOTIFIED AND CHART COPY PER US. RN TO CALL REPORT TO [phone].
[2019-01-15 13:50] VITALS: BP 90/55
== END 2019-01-15 14:35 | DRG 539 ==
LOC: ER 12:58 → EROBS 15:40 → 2N 15:40
PROVIDERS: Emergency Medicine; Internal Medicine; Internal Medicine Cardiovascular Disease; Nurse Practitioner; ADMIT Internal Medicine
DX: M86.8X6 Other osteomyelitis, lower leg (principal); E43 Unspecified severe protein-calorie malnutrition; E87.1 Hypo-osmolality and hyponatremia; N12 Tubulo-interstitial nephritis, not specified as acute or chronic; K52.1 Toxic gastroenteritis and colitis; A04.72 Enterocolitis due to Clostridium difficile, not specified as recurrent; L97.329 Non-pressure chronic ulcer of left ankle with unspecified severity; L03.116 Cellulitis of left lower limb; I13.0 Hypertensive heart and chronic kidney disease with heart failure and stage 1 through stage 4 chronic kidney disease, or unspecified chronic kidney disease; E78.00 Pure hypercholesterolemia, unspecified; I73.9 Peripheral vascular disease, unspecified; E78.5 Hyperlipidemia, unspecified; E03.9 Hypothyroidism, unspecified; I48.0 Paroxysmal atrial fibrillation; E86.0 Dehydration; I50.9 Heart failure, unspecified; E87.5 Hyperkalemia; L89.310 Pressure ulcer of right buttock, unstageable; N18.9 Chronic kidney disease, unspecified; E87.8 Other disorders of electrolyte and fluid balance, not elsewhere classified; D64.9 Anemia, unspecified; I87.8 Other specified disorders of veins; E83.42 Hypomagnesemia; E53.8 Deficiency of other specified B group vitamins; I08.1 Rheumatic disorders of both mitral and tricuspid valves; Z96.653 Presence of artificial knee joint, bilateral; T36.8X5A Adverse effect of other systemic antibiotics, initial encounter; Z68.25 Body mass index [BMI] 25.0-25.9, adult; Z98.42 Cataract extraction status, left eye; Z98.41 Cataract extraction status, right eye; Z85.3 Personal history of malignant neoplasm of breast; Z90.49 Acquired absence of other specified parts of digestive tract; Z95.820 Peripheral vascular angioplasty status with implants and grafts; Y92.89 Other specified places as the place of occurrence of the external cause; Z79.01 Long term (current) use of anticoagulants; Z79.899 Other long term (current) drug therapy; Z88.1 Allergy status to other antibiotic agents; Z88.2 Allergy status to sulfonamides; Z82.49 Family history of ischemic heart disease and other diseases of the circulatory system; Z82.3 Family history of stroke
CPT/HCPCS: 10081

== ENCOUNTER → 2019-02-26 | Outpatient (CLI) | payer OTHER ==
[~2019-02-26] MED LIST changes: +CARDIZEM CD240 MG PO; +CEFEPIME 22 GM/100 M IV; +COZAAR 25 MG TA25 M1 PO; +FIRVANQ50 MG/1 ML PO; +METOPROLOL SUCC25 M1 PO
== END ==
LOC: RAD 01:38
DX: Z12.31 Encounter for screening mammogram for malignant neoplasm of breast (principal)

== ENCOUNTER → 2019-02-26 | Outpatient (CLI) | payer OTHER | LOC: HYPER 01-16 06:39 | DX: I87.333 Chronic venous hypertension (idiopathic) with ulcer and inflammation of bilateral lower extremity (principal); L97.311 Non-pressure chronic ulcer of right ankle limited to breakdown of skin; L97.322 Non-pressure chronic ulcer of left ankle with fat layer exposed; L97.811 Non-pressure chronic ulcer of other part of right lower leg limited to breakdown of skin; B36.9 Superficial mycosis, unspecified; L03.115 Cellulitis of right lower limb; L03.116 Cellulitis of left lower limb; L84 Corns and callosities; I73.9 Peripheral vascular disease, unspecified; R60.0 Localized edema ==

== ENCOUNTER → 2019-02-27 | Outpatient (CLI) | payer OTHER | LOC: RAD 16:48 | DX: M86.8X7 Other osteomyelitis, ankle and foot (principal) ==

== ENCOUNTER → 2019-03-13 | Outpatient (CLI) | payer OTHER ==
[~2019-03-13] MED LIST changes: +FLORANEX GRANU1 EACH PO; +VANCOMYCIN1 GM/2002 IV
== END ==
LOC: HYPER 03-12 07:52
DX: I87.333 Chronic venous hypertension (idiopathic) with ulcer and inflammation of bilateral lower extremity (principal); L97.322 Non-pressure chronic ulcer of left ankle with fat layer exposed; L97.811 Non-pressure chronic ulcer of other part of right lower leg limited to breakdown of skin; L84 Corns and callosities; L03.115 Cellulitis of right lower limb; L03.116 Cellulitis of left lower limb; R60.0 Localized edema; B36.9 Superficial mycosis, unspecified; I73.9 Peripheral vascular disease, unspecified

== ENCOUNTER → 2019-03-28 | Outpatient (CLI) | payer OTHER ==
[~2019-03-28] MED LIST changes: -FLORANEX GRANU1 EACH PO; -VANCOMYCIN1 GM/2002 IV
== END ==
LOC: HYPER 08:45
DX: I87.333 Chronic venous hypertension (idiopathic) with ulcer and inflammation of bilateral lower extremity (principal); L97.322 Non-pressure chronic ulcer of left ankle with fat layer exposed; L97.811 Non-pressure chronic ulcer of other part of right lower leg limited to breakdown of skin; I73.9 Peripheral vascular disease, unspecified; R60.0 Localized edema; I87.8 Other specified disorders of veins; I48.91 Unspecified atrial fibrillation; E87.1 Hypo-osmolality and hyponatremia; I50.9 Heart failure, unspecified; L84 Corns and callosities; B36.9 Superficial mycosis, unspecified

== ENCOUNTER → 2019-04-18 | Outpatient (CLI) | payer OTHER | LOC: HYPER 08:18 | DX: I87.322 Chronic venous hypertension (idiopathic) with inflammation of left lower extremity (principal); L97.322 Non-pressure chronic ulcer of left ankle with fat layer exposed; I73.9 Peripheral vascular disease, unspecified; L84 Corns and callosities; I48.91 Unspecified atrial fibrillation; I50.9 Heart failure, unspecified; E87.0 Hyperosmolality and hypernatremia; B36.9 Superficial mycosis, unspecified; R60.0 Localized edema ==

== ENCOUNTER → 2019-05-02 | Outpatient (CLI) | payer OTHER | LOC: HYPER 09:01 | DX: L97.322 Non-pressure chronic ulcer of left ankle with fat layer exposed (principal); I87.2 Venous insufficiency (chronic) (peripheral); I73.9 Peripheral vascular disease, unspecified; L84 Corns and callosities; I87.8 Other specified disorders of veins; I48.91 Unspecified atrial fibrillation; I50.9 Heart failure, unspecified; E87.1 Hypo-osmolality and hyponatremia; B36.9 Superficial mycosis, unspecified; R60.0 Localized edema ==

== ENCOUNTER → 2019-05-14 | Outpatient (CLI) | payer OTHER ==
[~2019-05-14] MED LIST changes: +FLORANEX GRANU1 EACH PO; +VANCOMYCIN1 GM/2002 IV
== END ==
LOC: HYPER 15:31
DX: L97.322 Non-pressure chronic ulcer of left ankle with fat layer exposed (principal); L84 Corns and callosities; I87.2 Venous insufficiency (chronic) (peripheral); I73.9 Peripheral vascular disease, unspecified; I48.91 Unspecified atrial fibrillation; I50.9 Heart failure, unspecified; R60.0 Localized edema; E87.1 Hypo-osmolality and hyponatremia; B36.9 Superficial mycosis, unspecified

== ENCOUNTER 2019-05-15 10:40 | Inpatient (IN) | payer OTHER ==
[~2019-05-15] VITALS: Ht 165.1 cm; Wt 52.6 kg
[~2019-05-15 10:40] MED LIST changes: -FLORANEX GRANU1 EACH PO; -VANCOMYCIN1 GM/2002 IV
[2019-05-15 14:26] VITALS: BP 115/62
[2019-05-15 14:26] LABS: BASOPHILS 0.1 % (0.0-2.0); EOSINOPHILS 1.2 % (0.0-3.0); HEMATOCRIT 35.1 % (37.0-47.0); HEMOGLOBIN 11.6 gm/dL (12.0-15.0); LYMPHOCYTES 18.4 % (24.0-44.0); MCH 30.2 pg (26.0-34.0); MCV 91.3 fL (80.0-100.0); MONOCYTES 11.1 % (1.0-8.0); PLATELET COUNT 172 thou/uL (150-400); POLYS 69.2 % (36.0-66.0); RBC 3.85 mil/uL (4.20-5.00); RDW 15.8 % (10.5-14.5); WBC 4.3 thou/uL (4.0-11.0)
[2019-05-15 14:44] LABS: ALBUMIN 3.5 g/dL (3.4-5.0); CALCIUM 9.2 mg/dL (8.5-10.1); CREATININE 1.3 mg/dL (0.6-1.0); POTASSIUM 4.7 mmol/L (3.5-5.1); TOTAL BILIRUBIN 0.8 mg/dL (<0.1-1.0); TOTAL PROTEIN 8.3 g/dL (6.4-8.2)
--- NOTE | 2019-05-15 17:14 | NUR ---
ASSUMED CARE OF PATIENT APPROX 1200. PATIENT A&OX4, VSS, DENIES PAIN. PHOTO TAKEN OF WOUND TO LEFT CALF. IV INSERTED, DOCTOR HAS SEEN PATIENT AND PLACED ORDERES. WOUND DRESSED. PATIENT TOLERATED DIET. WILL CONTINUE TO MONITOR.
[2019-05-15 19:16] VITALS: BP 121/60
[2019-05-16 04:19] VITALS: BP 134/70
--- NOTE | 2019-05-16 05:00 | NUR ---
Assumed care of pt @1915. pt a&ox4. ambulates with 1 assist to the bathroom. pain was controled with tramadol. pt c/o of itching and stated that she's had it for months now and nothing is helping with it. v/s stable. contact prec in place. no s/s of distress. will cont to monitor
[2019-05-16 06:33] LABS: APTT 28.6 Seconds (24.5-32.8); PROTIME 10.9 Seconds (9.3-11.4)
[2019-05-16 06:35] LABS: HEMATOCRIT 34.3 % (37.0-47.0); HEMOGLOBIN 11.3 gm/dL (12.0-15.0); MCH 30.1 pg (26.0-34.0); MCV 91.2 fL (80.0-100.0); RBC 3.76 mil/uL (4.20-5.00); RDW 16.3 % (10.5-14.5); WBC 3.7 thou/uL (4.0-11.0)
[2019-05-16 06:47] LABS: CALCIUM 8.7 mg/dL (8.5-10.1); MAGNESIUM 2.1 mg/dL (1.8-2.4); POTASSIUM 4.8 mmol/L (3.5-5.1)
[2019-05-16 07:38] LABS: CREATININE 1.3 mg/dL (0.6-1.0)
[2019-05-16 08:00] VITALS: BP 127/68
--- NOTE | 2019-05-16 12:34 | NUR ---
PT ADMITTED RELATED TO INFECTED NON HEALING WOUND, Sammi CORDERO. CM REVIEWED CHART AND SPOKE WITH CARE TEAM. CM MET WIHT PT AT BEDSIDE THIS DAY. PT INDICATED SHE LIVES IN AN APARTMENT WITH HER SPOUSE WITH 2 STEPS TO ENTER WITH [employer]. PT INIDCATED SHE USED A 4WW WITH A SEAT TO ASSIST WITH MOBILITY AT NIGHT. 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 PT INDICATED SHE HAD BEEN ON SERVICE WITH [facility] AND THAT SHE WANTS TO USE THEM AGAIN UPON DC. CM TO FOLLOW INDICATED WITH DC PLANNING.
[2019-05-16 15:00] VITALS: BP 102/54
--- NOTE | 2019-05-16 17:15 | NUR ---
WOUND TO LLE CHANGED THIS PM WIHT DARKINS SOLUTION. PATIENT DENIES PAIN TO WOUND. SHE DOES NOT SEEM TO BE IN PAIN AT THIS TIME. SHE AMBULATES ABOUT HER ROOM WITH MINIMAL DIFFICULTY. WILL CONT WITH PLAN CARE.
[2019-05-16 21:04] VITALS: BP 112/54
--- NOTE | 2019-05-17 06:00 | NUR ---
No changes overnight. pain controled with ordered pain med. pt adlib in room. contact prec in place. v/s stable. no s/s of distress. will cont to monitor
[2019-05-17 08:35] VITALS: BP 115/67
--- NOTE | 2019-05-17 10:55 | NUR ---
PT CURRENTLY UP AD DERICK IN ROOM. CURRENT FUNCTIONAL STATUS DOES NOT NECESSITATE THERAPY. PT GIVEN WRITTEN HEP PROGRAM. PROGRAM EXPLAINED AND PT DENIES HAVING QUESTIONS ABOUT HEP.
--- NOTE | 2019-05-17 12:37 | NUR ---
DISCHARGE PLANNING. DISCHARGE PLAN IS TO HOME WITH HOME HEALTH SERVICES. PATIENT CLINICALS FAXED TO [facility] PER REQUEST. PATIENT ON SERVICE WITH [facility]. CALL PLACED TO [facility], SPOKE WITH DENNY IN INTAKE. DENNY CONFIRMED PATIENT IS CURRENT WITH [facility] AND WILL RESUME CARE ONCE DISCHARGE HOME HEALTH ORDERS RECEIVED. FOLLOWING.
--- NOTE | 2019-05-17 14:46 | NUR ---
Received awake on bed. Due medications given as prescribed, able to swallow meds w/o difficulty. A+O. On room air. On heart healthy diet with supplements- tolerating well- no nausea, no vomiting and no abominal pain noted. With SL at L FA-intact and flushing well. On standby assist, able to go to the bathroom. Had a bowel movement today- charted. Assisted in ADLs. Visited by relative today. With wound at L Leg- dressing C/D/I- pt seen by wound team today and dressing changed; leg kept elevated. Pt seen by CM today. Seen by Dr Gallegos as well, verified with him re: to continue telemetry- informed Dr Gallegos that upon checking pt was admitted last 05/15 and has not been on any telemetry monitoring- as per Dr Gallegos, pt can be off telemetry for now. Complained of pain, due PRN pain meds given as prescribed. Falls bundle in place.
--- NOTE | 2019-05-17 16:43 | NUR ---
CARE TEAM INDICATED THAT PT DESIRES TO DISHCARGE HOME WITH HOME HEALTH AND IV INFUSION SERVICES ONCE MEDICALLY STABLE. [facility] NOTIFIED. CM AWAITING ID RECOMMENDATIONS. CM TO FOLLOW INDICATED WITH DC PLANNING.
[2019-05-17 21:37] VITALS: BP 107/56
--- NOTE | 2019-05-17 23:17 | HC ---
[facility] [place] [address] CONSULTATION Name: HAYDER GUTIERREZ Room #: 457-P ADM IN M.R.#: [id number] Admission: 05/15/19 Attend Phys: Santhosh Gallegos MD Discharge: Date of : 31 Report #: [id number] THIS REPORT FOR: //name// CC: Luis Olveragina Hyatt DATE OF SERVICE: 05/15/2019 INFECTIOUS DISEASE CONSULTATION REASON FOR CONSULTATION: I was asked to evaluate left lower extremity wound infection in the setting of chronic venous stasis disease. HISTORY OF PRESENT ILLNESS: The patient is an 89-year-old known from her previous hospitalization and care earlier this year for pseudomonas aeruginosa, left fibular osteomyelitis with chronic wound. She was treated with a surgical debridement followed by 6 weeks of IV antibiotic therapy. This was complicated by delirium, congestive heart failure, atrial fibrillation, severe diarrhea and C. difficile infection, hypokalemia. Following completion of her antibiotic therapy, she has been on topical treatments, wound care, and compression. She has had vein ablation procedures as well. She notes that overall her legs have improved. She still has a wound to the lateral aspect of her left lower leg. She has moderate tenderness in this region. She has been ambulatory. She has been using dressing changes as outlined by wound care service and compression stockings. She does follow up with cardiovascular medicine regarding her congestive heart failure. She has noticed since her vein ablation procedures that her edema has improved. REVIEW OF SYSTEMS: A 10-point review of systems was negative other than what has been described above. She has maintained her weight with good appetite. There have been no other or GI complaints. No dyspnea on exertion. In general, she has fatigue, but is a fairly active and cares for her at home. ALLERGIES: SULFA AND delirium with CEFEPIME. MEDICATIONS: As noted on her MAR, which were reviewed. PAST MEDICAL HISTORY: Chronic venous stasis disease, hyperlipidemia, hypertension, right breast cancer, peripheral vascular disease, atrial fibrillation, total knee arthroplasties, bilateral cholecystectomy, bilateral cataract surgery, lymph node dissection following her mastectomy and stents in place for peripheral vascular disease of the lower extremities. FAMILY HISTORY: Noncontributory. [facility] [address] [place] [address] CONSULTATION Name: HAYDER GUTIERREZ Room #: 457-P [facility] IN M.R.#: [id number] Admission: 05/15/19 Attend Phys: Santhosh Gallegos MD Discharge: Date of : 31 Report #: [id number] SOCIAL HISTORY: Nonsmoker, no significant alcohol intake. PHYSICAL EXAMINATION: VITAL SIGNS: She was afebrile and hemodynamically stable. GENERAL: Alert and cooperative and pleasant, in no acute distress. SKIN: With venous stasis dermatitis changes left lower extremity greater than the right. She had a wound to the left lateral lower leg with areas of granulation tissue present and some yellow discharge. There were surrounding erythema and mild tenderness. Overall, the size and depth of her wound was improved from the last outpatient visit when I saw her. 2+ lower extremity edema in the lower leg and 1+ in the foot. No palpable adenopathy. EYES: Without scleral icterus. MOUTH: Without mucositis. NECK: Supple. LUNGS: Clear. HEART: Regular with a 1/6 systolic murmur heard at left lower sternal border. ABDOMEN: Soft, nontender, no hepatosplenomegaly or mass. GENITORECTAL: Not performed. EXTREMITIES: As noted above with palpable pulses in the posterior tibial and dorsalis pedis bilaterally. BACK: Nontender with no CVA tenderness. Mood was normal. Affect normal. NEUROLOGIC: Cranial nerves intact. Strength in upper and lower extremities was symmetric and within normal limits. Sensation to touch within normal limits to both upper and lower extremities. IMPRESSION: 1. Chronic wound to the left lower leg following surgical debridement of the fibular osteomyelitis. Now with secondary bacterial infection. I discussed the case with Dr. Briggs who has identified pseudomonas from her wound. I do not have the sensitivities available to me at this point. 2. Chronic venous stasis disease. 3. Peripheral vascular disease. 4. Congestive heart failure, compensated. 5. History of Clostridium difficile colitis. RECOMMENDATIONS: 1. We will continue with aggressive wound care and edema control and IV antibiotic therapy. 2. Begin vancomycin enterally and monitor GI tract symptoms. 3. Continue modalities for edema control. 4. Continue wound care followup. <ELECTRONICALLY SIGNED> By: Luis Stoner MD 05/17/19 2317 1241 1322 Luis Stoner MD /nt
--- NOTE | 2019-05-18 05:05 | NUR ---
Assumed care of pt @1915. pt a&ox4. no changes overnight. pt had a restful night. adlib in room and will call for assistance. contact prec in place. v/s stable. no s/s of distress. will contitnue to monitor
[2019-05-18 08:46] VITALS: BP 124/71
--- NOTE | 2019-05-18 11:22 | HC ---
[facility] [place] [address] [address] CONSULTATION Name: HAYDER GUTIERREZ Room #: 457-P ADM IN M.R.#: [id number] Admission: 05/15/19 Attend Phys: Santhosh Gallegos MD Discharge: Date of : 31 Report #: [id number] THIS REPORT FOR: //name// CC: Luis Geequynh Hyatt DATE OF SERVICE: 05/15/2019 CHIEF COMPLAINT: Cellulitis and wound infection, left lower extremity. HISTORY OF PRESENT ILLNESS: This is an 89-year-old female patient with a history of osteomyelitis and a nonhealing ulceration of the left lower extremity. I saw her in clinic yesterday where she had increasing redness and drainage as well as history of recent culture showing MRSA as well as Pseudomonas. The patient was felt that hospitalization would be appropriate. She wanted to wait until today. She is admitted now at this time. Notes moderate pain and drainage from her leg that has not changed much since yesterday. PAST MEDICAL HISTORY: Positive for osteomyelitis, cellulitis and chronic ulceration of the left lower extremity. CURRENT MEDICATIONS: Include meropenem, vancomycin, ascorbic acid, amiodarone, amlodipine, apixaban, biotin, calcium citrate, cefepime, Osteo Bi-Flex, cyanocobalamin, diltiazem, ergocalciferol, ferrous sulfate, fluticasone, furosemide, gabapentin, levothyroxine, losartan, metoprolol, simvastatin, tramadol, vancomycin, and vitamin B6. SOCIAL HISTORY: Negative for current alcohol or tobacco use. FAMILY HISTORY: Noncontributory. REVIEW OF SYSTEMS: CONSTITUTIONAL: The patient denies fever, chills or weight loss. NEUROLOGICAL: The patient denies focal weakness, numbness, or tingling. EYES: The patient denies visual changes, redness, or drainage. ENT: The patient denies earache, nasal drainage or sore throat. CARDIOVASCULAR: The patient denies chest pain, palpitation or diaphoresis. PULMONARY: The patient denies cough or shortness of breath. GASTROINTESTINAL: The patient denies nausea, vomiting, diarrhea or abdominal pain. ORTHOPEDIC: The patient complains of pain, swelling, drainage from the left lower extremity. Other systems in a 14-point review of systems are negative. [address] [address] CONSULTATION Name: HAYDER GUTIERREZ Room #: 457-P [facility] IN M.R.#: [id number] Admission: 05/15/19 Attend Phys: Santhosh Gallegos MD Discharge: Date of : 31 Report #: [id number] PHYSICAL EXAMINATION: VITAL SIGNS: At this time include temperature is 37.2, pulse rate 72, respiratory rate 16. GENERAL: This is a chronically ill-appearing female patient who appears to be in no distress. HEENT: Head is normocephalic. Nose and throat clear. NECK: Supple. LUNGS: Clear. HEART: Regular. ABDOMEN: Bowel sounds present. EXTREMITIES: Demonstrate diminished yet palpable distal pulses. She has ulceration on the left lateral lower extremity. It is a bit pigs feet cleaner than yesterday. Some debridement was performed in the office yesterday. There is significant warmth and erythema and swelling involving the lower extremity. NEUROLOGIC: The patient is alert and oriented and appropriate. LABORATORY DATA: Pending at this time. CLINICAL IMPRESSION: 1. Wound infection of the left lower extremity. 2. History of osteomyelitis, status post surgical debridement, left lower extremity. 3. Cellulitis, left lower extremity. 4. Pseudomonas and methicillin-resistant Staphylococcus aureus infection. 5. History of atrial fibrillation. 6. History of compensated congestive heart failure. RECOMMENDATIONS: At this point in time, she will start on intravenous antibiotic therapy, local wound care with topical Dakin's moist gauze and gentle compression. I have discussed findings with Dr. Richard Stoner who will be seeing her as well. I appreciate being asked to see her in consultation. <ELECTRONICALLY SIGNED> By: Agapito Briggs MD 05/18/19 1122 1331 1602 Agapito Briggs MD /nt
[2019-05-18 15:51] VITALS: BP 128/61
--- NOTE | 2019-05-18 16:30 | NUR ---
SHOULD CARE TEAM DETERMINE THAT PT IS MEDICALLY STABLE TO DISHCARGE OVER THE WEEKEND. PT IT TO HAVE [facility] RESUMED CONTACT FAX ORDERS TO . REFERRAL SENT TO [facility] FOR HOME INFUSION SERVICES CONTACT THEIR [facility] GRINDER PHARMACIST AT . PT WILL NEED BED SIDE TEACH DONE PT AND THEY WILL ARRANGE THAT ONCE CONTACTED. CM TO FOLLOW INDICATED WITH DC PLANNING.
[2019-05-18 19:57] VITALS: BP 102/52
--- NOTE | 2019-05-18 20:33 | NUR ---
Received awake on bed. Due medications given as prescribed, able to swallow medications w/o difficulty. A+Ox4. On room air. Vital signs stable. On heart healthy diet with supplements- tolerating well; no nausea, no vomiting and no abdominal pain noted. With SL at L FA- intact and flushing well. Assisted in ADLs. Maintained on isolation due to MRSA at L leg. With dressing at L Leg- C/D/I- changed dressing today. Pt seen by CM today, possible HH with infusion, referrals sent; updated pt. To continue monitoring patient.
--- NOTE | 2019-05-19 04:04 | NUR ---
ASSUMED CARE AROUND 191. AXOX4. ISO FOR C.DIFF AND MRSA. NO S/S ACUTE DISTRESS NOTED OR REPORTED AT THIS TIME. WILL CONT TO MONITOR FOR ANY CHANGES IN CONDITION.
[2019-05-19 08:57] VITALS: BP 124/56
--- NOTE | 2019-05-19 15:18 | NUR ---
Received awake on bed. Due medications given as prescribed, able to swallow meds w/o difficulty. A+Ox4. Visited by relative today. On room air. Vital signs stable. On heart healthy diet with supplements- tolerating well; no nausea, no vomiting and no abdominal pain. With wound at L leg- pt has been seen by Dr Chavira during shift changed and dressing has been changed; C/D/I. Pt very keen to go home, Dr Gallegos has seen and spoken to patient about treatment and discharge plans. With SL at FA- on IV antibiotics. Maintained on isolation due to MRSA of wound.
[2019-05-19 18:05] VITALS: BP 117/56
[2019-05-19 19:37] VITALS: BP 114/54
--- NOTE | 2019-05-20 03:02 | NUR ---
ASSUMED CARE AROUND 191. AXOX4. LLE DRESSING CDI. IV REPLCAED TO UPPER LFA. TOLERATED FAIR. NO S/S ACUTE DISTRESS NOTED OR REPORTED AT THIS TIME. WILL CONT TO MONITOR FOR ANY CHANGES IN CONDITION.
[2019-05-20 08:00] VITALS: BP 102/52
[2019-05-20 15:00] VITALS: BP 105/55
--- NOTE | 2019-05-20 15:59 | NUR ---
Assumed patient care at 0715. Patient's blood pressure and pulse were low at 0800: BP 102/52, P 49. Held Amlodipine 5mg and Metoprolol 25mg. Patient was asymptomatic with hypotension. At 1500, her Blood Pressure was 105/55, with a Pulse of 51. Patient has not appearred to be in any distress. She is worried about her being home , as he has Parkinson's Disease (children are helping). Patient and family educated about MRSA and C-Diff. Patient educated on the importance of medication compliance, the importance of drinking plenty of water and consuming enough protein to assist with wound healing. Family and patient verbalized an understanding of all teaching. Dressing changed. Serous drainage of moderate amount noted to old dressing. Redness and edema noted to area surrounding wounds. No odor noted. Patient tolerated well. Patient requested and received Tramadol 50mg po for pain level "five" to LLE. Medication reduced pain to a level "two" after 45 minutes. Patient reported two soft small bowel movements during this shift (formed and "about the size of my finger.") No adverse effects noted from Antibiotic therapy. Will continue to monitor.
[2019-05-20 19:35] VITALS: BP 106/51
--- NOTE | 2019-05-21 03:25 | NUR ---
PT CARE ASSSUMED AT 1900 WITH PT IN BED.PT IS A/OX4 .PT IS UP WITH X1 TO BATHROOM.PT PAIN MGT WITH TRAMADOL.WOUND DRESSING C/D/I .WILL CONTINUE TO MONITOER TILL EOS
[2019-05-21 12:35] VITALS: BP 115/60
--- NOTE | 2019-05-21 12:47 | NUR ---
VAT CONSULTED FOR A PIV FOR 2 WEEKS OF VANCO, PT HAS HAD FAILED PICC ATTEMPTS ON THE LT, MASTECTOMY ON THE RIGHT. ML IS NOT APPRPROPRIATE FOR LT ABX OUTPT. PLACED AN ORDER FOR IR TICC PLACEMENT.
--- NOTE | 2019-05-21 14:28 | NUR ---
Assumed patient care at 0715. Patient's blood pressure was 115/60, Pulse 51 upon assessment. She refused Atorvastatin 5mg and Metoprolol 25mg because of this. Patient's IV infiltrated in left forearm. IV Team came to assess and it was decided that patient was a better candidiate for "Ticc Line." Patient is currently having this line placed, then will be discharged home for Home Health services and will be receiving IV therapy from an Infusion Clinic. Patient has not had any diarrhea during this shift. She has been consuming 100% of all meals. Patient has also been tolerating IV medications well. Will continue to monitor.
[2019-05-21] MEDS ORDERED: MEROPENEM 1 GM V1 GM IVPB (15:21)
[2019-05-21] MEDS ORDERED: VANCOMYCIN1 GM/2002 IV (15:21)
[2019-05-21] MEDS ORDERED: FLORANEX GRANU1 EACH PO (15:21)
--- NOTE | 2019-05-21 16:14 | NUR ---
CARE TEAM INDICATED THAT PT IS MEDICALLY STABLE TO DC HOME THIS DAY. CM HAD SENT REFERRAL TO [facility] AND PT'S COVERAGE FOR VANC AND MERREM IS $2.00 PER WEEK FOR EACH. PT IS AGREEABLE. PT IS TO RESUME HH SERVICES WITH [facility]. PT TO HAVE VANC Q DAY AND MERREM Q12 OK TO HAVE BOTH TOMORROW AT 9:00AM. FINAL ORDERS FAXED TO [facility] AND [facility] [place] DID BEDSIDE TEACH. PT'S SON TO PROVIDE TRANSPORT HOME. NO OTHER CM INTERVETNION INDICATED. CASE CLOSED.
== END 2019-05-21 18:05 | disposition home health service (06) | DRG 579 ==
LOC: 4W 10:40
PROVIDERS: Specialist; ADMIT Internal Medicine
DX: L03.116 Cellulitis of left lower limb (principal); E43 Unspecified severe protein-calorie malnutrition; M86.8X6 Other osteomyelitis, lower leg; I50.32 Chronic diastolic (congestive) heart failure; I48.20 Chronic atrial fibrillation, unspecified; L97.829 Non-pressure chronic ulcer of other part of left lower leg with unspecified severity; N17.9 Acute kidney failure, unspecified; Z68.1 Body mass index [BMI] 19.9 or less, adult; Z16.24 Resistance to multiple antibiotics; I13.0 Hypertensive heart and chronic kidney disease with heart failure and stage 1 through stage 4 chronic kidney disease, or unspecified chronic kidney disease; S81.802A Unspecified open wound, left lower leg, initial encounter; E78.5 Hyperlipidemia, unspecified; I73.9 Peripheral vascular disease, unspecified; Z96.659 Presence of unspecified artificial knee joint; I87.8 Other specified disorders of veins; E78.00 Pure hypercholesterolemia, unspecified; E03.9 Hypothyroidism, unspecified; I71.2 Thoracic aortic aneurysm, without rupture; N18.9 Chronic kidney disease, unspecified; I27.20 Pulmonary hypertension, unspecified; I08.1 Rheumatic disorders of both mitral and tricuspid valves; D50.9 Iron deficiency anemia, unspecified; B95.62 Methicillin resistant Staphylococcus aureus infection as the cause of diseases classified elsewhere; Z88.2 Allergy status to sulfonamides; Z88.8 Allergy status to other drugs, medicaments and biological substances; Z85.3 Personal history of malignant neoplasm of breast; Z90.49 Acquired absence of other specified parts of digestive tract; Z98.42 Cataract extraction status, left eye; Z98.41 Cataract extraction status, right eye; Z90.10 Acquired absence of unspecified breast and nipple; Z82.49 Family history of ischemic heart disease and other diseases of the circulatory system; Z82.3 Family history of stroke; Z95.820 Peripheral vascular angioplasty status with implants and grafts; X58.XXXA Exposure to other specified factors, initial encounter; Y93.89 Activity, other specified; Y92.89 Other specified places as the place of occurrence of the external cause; Y99.8 Other external cause status; B96.5 Pseudomonas (aeruginosa) (mallei) (pseudomallei) as the cause of diseases classified elsewhere
CPT/HCPCS: 10047

== ENCOUNTER → 2019-06-01 | Outpatient (CLI) | payer OTHER ==
[~2019-06-01] MED LIST changes: +FLORANEX GRANU1 EACH PO; +VANCOMYCIN1 GM/2002 IV
== END | disposition home or self-care (01) ==
LOC: SPEC 10:53
DX: Z45.2 Encounter for adjustment and management of vascular access device (principal); Z98.890 Other specified postprocedural states; Z88.2 Allergy status to sulfonamides; Z88.8 Allergy status to other drugs, medicaments and biological substances; Z79.899 Other long term (current) drug therapy; Z79.01 Long term (current) use of anticoagulants

== ENCOUNTER → 2019-06-18 | Outpatient (CLI) | payer OTHER | LOC: HYPER 10:06 | DX: L97.322 Non-pressure chronic ulcer of left ankle with fat layer exposed (principal); B36.9 Superficial mycosis, unspecified; E87.1 Hypo-osmolality and hyponatremia; L84 Corns and callosities; I87.2 Venous insufficiency (chronic) (peripheral); I73.9 Peripheral vascular disease, unspecified; I48.91 Unspecified atrial fibrillation; I50.9 Heart failure, unspecified; R60.0 Localized edema ==

== ENCOUNTER → 2019-06-25 | Outpatient (CLI) | payer OTHER | LOC: HYPER 09:56 | DX: L97.322 Non-pressure chronic ulcer of left ankle with fat layer exposed (principal); I87.2 Venous insufficiency (chronic) (peripheral); I73.9 Peripheral vascular disease, unspecified; R60.0 Localized edema; I48.91 Unspecified atrial fibrillation; I50.9 Heart failure, unspecified; E87.1 Hypo-osmolality and hyponatremia; B36.9 Superficial mycosis, unspecified ==

== ENCOUNTER → 2019-07-02 | Outpatient (CLI) | payer OTHER | LOC: HYPER 10:17 | DX: L97.322 Non-pressure chronic ulcer of left ankle with fat layer exposed (principal); I87.2 Venous insufficiency (chronic) (peripheral); I73.9 Peripheral vascular disease, unspecified; I48.91 Unspecified atrial fibrillation; I50.9 Heart failure, unspecified; E87.1 Hypo-osmolality and hyponatremia; B36.9 Superficial mycosis, unspecified; Z79.01 Long term (current) use of anticoagulants ==

== ENCOUNTER → 2019-07-09 | Outpatient (CLI) | payer OTHER | LOC: HYPER 13:31 | DX: L97.322 Non-pressure chronic ulcer of left ankle with fat layer exposed (principal); I87.2 Venous insufficiency (chronic) (peripheral); I73.89 Other specified peripheral vascular diseases ==

== ENCOUNTER → 2019-07-24 | Outpatient (CLI) | payer OTHER | LOC: HYPER 09:55 | DX: L97.322 Non-pressure chronic ulcer of left ankle with fat layer exposed (principal); L97.311 Non-pressure chronic ulcer of right ankle limited to breakdown of skin; S80.812D Abrasion, left lower leg, subsequent encounter; I87.2 Venous insufficiency (chronic) (peripheral); I48.91 Unspecified atrial fibrillation; B36.9 Superficial mycosis, unspecified; I50.9 Heart failure, unspecified; E87.1 Hypo-osmolality and hyponatremia; Z79.01 Long term (current) use of anticoagulants; X58.XXXD Exposure to other specified factors, subsequent encounter ==

== ENCOUNTER → 2019-08-07 | Outpatient (CLI) | payer OTHER | LOC: HYPER 10:01 | DX: L97.322 Non-pressure chronic ulcer of left ankle with fat layer exposed (principal); L97.311 Non-pressure chronic ulcer of right ankle limited to breakdown of skin; S80.812A Abrasion, left lower leg, initial encounter; I87.2 Venous insufficiency (chronic) (peripheral); I73.89 Other specified peripheral vascular diseases; B36.9 Superficial mycosis, unspecified; R60.0 Localized edema; I48.91 Unspecified atrial fibrillation; I50.9 Heart failure, unspecified; E87.1 Hypo-osmolality and hyponatremia; X58.XXXD Exposure to other specified factors, subsequent encounter ==

== ENCOUNTER → 2019-08-21 | Outpatient (CLI) | payer OTHER | LOC: HYPER 10:23 | DX: L97.322 Non-pressure chronic ulcer of left ankle with fat layer exposed (principal); L97.311 Non-pressure chronic ulcer of right ankle limited to breakdown of skin; S80.812D Abrasion, left lower leg, subsequent encounter; I87.2 Venous insufficiency (chronic) (peripheral); I73.89 Other specified peripheral vascular diseases; I48.91 Unspecified atrial fibrillation; I50.9 Heart failure, unspecified; E87.1 Hypo-osmolality and hyponatremia; B36.9 Superficial mycosis, unspecified; Z79.01 Long term (current) use of anticoagulants; X58.XXXD Exposure to other specified factors, subsequent encounter ==

== ENCOUNTER → 2019-09-03 | Outpatient (CLI) | payer OTHER | LOC: SJCVCIMAG 12:05 | DX: I73.9 Peripheral vascular disease, unspecified (principal); M79.605 Pain in left leg; M79.604 Pain in right leg; L97.909 Non-pressure chronic ulcer of unspecified part of unspecified lower leg with unspecified severity; I10 Essential (primary) hypertension; I48.0 Paroxysmal atrial fibrillation; E78.00 Pure hypercholesterolemia, unspecified ==

== ENCOUNTER → 2019-09-17 | Outpatient (CLI) | payer OTHER | LOC: SJCVC 13:27 | PROVIDERS: ATTEND Internal Medicine | DX: R94.31 Abnormal electrocardiogram [ECG] [EKG] (principal); I44.0 Atrioventricular block, first degree; I48.0 Paroxysmal atrial fibrillation; E78.5 Hyperlipidemia, unspecified; I11.0 Hypertensive heart disease with heart failure; I50.9 Heart failure, unspecified; I25.10 Atherosclerotic heart disease of native coronary artery without angina pectoris; I73.9 Peripheral vascular disease, unspecified; Z90.49 Acquired absence of other specified parts of digestive tract; Z79.899 Other long term (current) drug therapy ==

== ENCOUNTER → 2019-09-18 | Outpatient (CLI) | payer OTHER | LOC: HYPER 10:20 | DX: L97.322 Non-pressure chronic ulcer of left ankle with fat layer exposed (principal); L97.311 Non-pressure chronic ulcer of right ankle limited to breakdown of skin; L97.811 Non-pressure chronic ulcer of other part of right lower leg limited to breakdown of skin; L84 Corns and callosities; S80.812D Abrasion, left lower leg, subsequent encounter; B36.9 Superficial mycosis, unspecified; E87.1 Hypo-osmolality and hyponatremia; I73.9 Peripheral vascular disease, unspecified; I87.2 Venous insufficiency (chronic) (peripheral); I48.91 Unspecified atrial fibrillation; I50.9 Heart failure, unspecified; R60.0 Localized edema; X58.XXXD Exposure to other specified factors, subsequent encounter ==

== ENCOUNTER → 2019-09-25 | Outpatient (CLI) | payer OTHER | LOC: HYPER 13:53 | DX: L97.322 Non-pressure chronic ulcer of left ankle with fat layer exposed (principal); L97.311 Non-pressure chronic ulcer of right ankle limited to breakdown of skin; L97.221 Non-pressure chronic ulcer of left calf limited to breakdown of skin; L97.811 Non-pressure chronic ulcer of other part of right lower leg limited to breakdown of skin; L84 Corns and callosities; S80.812D Abrasion, left lower leg, subsequent encounter; R60.0 Localized edema; B36.9 Superficial mycosis, unspecified; E87.1 Hypo-osmolality and hyponatremia; I87.2 Venous insufficiency (chronic) (peripheral); I73.9 Peripheral vascular disease, unspecified; I48.91 Unspecified atrial fibrillation; I50.9 Heart failure, unspecified; X58.XXXD Exposure to other specified factors, subsequent encounter ==

== ENCOUNTER → 2019-10-09 | Outpatient (CLI) | payer OTHER | LOC: HYPER 13:49 | DX: L97.322 Non-pressure chronic ulcer of left ankle with fat layer exposed (principal); L97.311 Non-pressure chronic ulcer of right ankle limited to breakdown of skin; L97.321 Non-pressure chronic ulcer of left ankle limited to breakdown of skin; L97.221 Non-pressure chronic ulcer of left calf limited to breakdown of skin; L97.811 Non-pressure chronic ulcer of other part of right lower leg limited to breakdown of skin; S80.812D Abrasion, left lower leg, subsequent encounter; R60.0 Localized edema; I87.8 Other specified disorders of veins; I48.91 Unspecified atrial fibrillation; I50.9 Heart failure, unspecified; E87.1 Hypo-osmolality and hyponatremia; B36.9 Superficial mycosis, unspecified; L84 Corns and callosities; I73.89 Other specified peripheral vascular diseases; Z79.01 Long term (current) use of anticoagulants; X58.XXXD Exposure to other specified factors, subsequent encounter ==

== ENCOUNTER → 2019-10-30 | Outpatient (CLI) | payer OTHER | LOC: HYPER 10:38 | DX: L97.322 Non-pressure chronic ulcer of left ankle with fat layer exposed (principal); L97.311 Non-pressure chronic ulcer of right ankle limited to breakdown of skin; L97.811 Non-pressure chronic ulcer of other part of right lower leg limited to breakdown of skin; L97.221 Non-pressure chronic ulcer of left calf limited to breakdown of skin; S80.812D Abrasion, left lower leg, subsequent encounter; L84 Corns and callosities; B36.9 Superficial mycosis, unspecified; E87.1 Hypo-osmolality and hyponatremia; R60.0 Localized edema; I73.9 Peripheral vascular disease, unspecified; I87.2 Venous insufficiency (chronic) (peripheral); I48.91 Unspecified atrial fibrillation; I50.9 Heart failure, unspecified; X58.XXXD Exposure to other specified factors, subsequent encounter ==

== ENCOUNTER → 2019-11-13 | Outpatient (CLI) | payer OTHER | LOC: HYPER 10:01 | DX: L97.322 Non-pressure chronic ulcer of left ankle with fat layer exposed (principal); L97.311 Non-pressure chronic ulcer of right ankle limited to breakdown of skin; L97.221 Non-pressure chronic ulcer of left calf limited to breakdown of skin; L97.811 Non-pressure chronic ulcer of other part of right lower leg limited to breakdown of skin; I87.2 Venous insufficiency (chronic) (peripheral); L84 Corns and callosities; S80.812D Abrasion, left lower leg, subsequent encounter; I73.9 Peripheral vascular disease, unspecified; R60.0 Localized edema; I48.91 Unspecified atrial fibrillation; I50.9 Heart failure, unspecified; E87.1 Hypo-osmolality and hyponatremia; B36.9 Superficial mycosis, unspecified; X58.XXXD Exposure to other specified factors, subsequent encounter ==

== ENCOUNTER → 2019-11-27 | Outpatient (CLI) | payer OTHER | LOC: HYPER 10:29 | PROVIDERS: ATTEND Emergency Medicine | DX: L97.322 Non-pressure chronic ulcer of left ankle with fat layer exposed (principal); L97.311 Non-pressure chronic ulcer of right ankle limited to breakdown of skin; L97.221 Non-pressure chronic ulcer of left calf limited to breakdown of skin; L97.811 Non-pressure chronic ulcer of other part of right lower leg limited to breakdown of skin; I87.2 Venous insufficiency (chronic) (peripheral); I73.9 Peripheral vascular disease, unspecified; I87.8 Other specified disorders of veins; I48.91 Unspecified atrial fibrillation; I50.9 Heart failure, unspecified; E87.1 Hypo-osmolality and hyponatremia; B36.9 Superficial mycosis, unspecified ==

== ENCOUNTER → 2019-12-10 | Outpatient (CLI) | payer OTHER | LOC: HYPER 13:06 | PROVIDERS: ATTEND Emergency Medicine | DX: L97.322 Non-pressure chronic ulcer of left ankle with fat layer exposed (principal); L97.311 Non-pressure chronic ulcer of right ankle limited to breakdown of skin; L97.811 Non-pressure chronic ulcer of other part of right lower leg limited to breakdown of skin; L97.221 Non-pressure chronic ulcer of left calf limited to breakdown of skin; S80.812D Abrasion, left lower leg, subsequent encounter; L84 Corns and callosities; R60.0 Localized edema; B36.9 Superficial mycosis, unspecified; E87.1 Hypo-osmolality and hyponatremia; I73.9 Peripheral vascular disease, unspecified; I87.2 Venous insufficiency (chronic) (peripheral); I48.91 Unspecified atrial fibrillation; I50.9 Heart failure, unspecified; X58.XXXD Exposure to other specified factors, subsequent encounter ==

== ENCOUNTER → 2019-12-31 | Outpatient (CLI) | payer OTHER | LOC: HYPER 13:15 | PROVIDERS: ATTEND Emergency Medicine | DX: L97.322 Non-pressure chronic ulcer of left ankle with fat layer exposed (principal); L97.311 Non-pressure chronic ulcer of right ankle limited to breakdown of skin; L97.811 Non-pressure chronic ulcer of other part of right lower leg limited to breakdown of skin; L97.221 Non-pressure chronic ulcer of left calf limited to breakdown of skin; L84 Corns and callosities; S80.812D Abrasion, left lower leg, subsequent encounter; B36.9 Superficial mycosis, unspecified; E87.1 Hypo-osmolality and hyponatremia; R60.0 Localized edema; I87.2 Venous insufficiency (chronic) (peripheral); I73.9 Peripheral vascular disease, unspecified; I48.91 Unspecified atrial fibrillation; I50.9 Heart failure, unspecified; X58.XXXD Exposure to other specified factors, subsequent encounter ==

== ENCOUNTER 2020-01-18 10:58 | Emergency (ER) | payer OTHER ==
[~2020-01-18] VITALS: Ht 165.1 cm; Wt 52.6 kg
[2020-01-18 11:04] VITALS: BP 130/61
[2020-01-18] MEDS ORDERED: VALSARTAN160 MG PO (11:22)
[2020-01-18] MEDS ORDERED: TRAMADOL 50 MG50 MG PO (11:23)
[2020-01-18] MEDS ORDERED: KLOR-CON M1010 MEQ PO (11:23)
[2020-01-18] MEDS ORDERED: DILTIAZEM 24HR240 M1 PO (11:23)
[2020-01-18] MEDS ORDERED: PACERONE 200 M200 M1 PO (11:24)
== END 2020-01-18 12:46 | disposition home or self-care (01) ==
LOC: ER 10:58
DX: S00.03XA Contusion of scalp, initial encounter (principal); I10 Essential (primary) hypertension; E78.00 Pure hypercholesterolemia, unspecified; I48.91 Unspecified atrial fibrillation; E03.9 Hypothyroidism, unspecified; Z79.01 Long term (current) use of anticoagulants; Z88.1 Allergy status to other antibiotic agents; Z88.8 Allergy status to other drugs, medicaments and biological substances; Z79.899 Other long term (current) drug therapy; Z98.890 Other specified postprocedural states; W07.XXXA Fall from chair, initial encounter; Y93.89 Activity, other specified; Y92.090 Kitchen in other non-institutional residence as the place of occurrence of the external cause; Y99.9 Unspecified external cause status

== ENCOUNTER → 2020-01-28 | Outpatient (CLI) | payer OTHER ==
[~2020-01-28] MED LIST changes: +DILTIAZEM 24HR240 M1 PO; +KLOR-CON M1010 MEQ PO; +PACERONE 200 M200 M1 PO; +VALSARTAN160 MG PO
== END ==
LOC: HYPER 12:14
PROVIDERS: ATTEND Emergency Medicine
DX: I70.243 Atherosclerosis of native arteries of left leg with ulceration of ankle (principal); L97.322 Non-pressure chronic ulcer of left ankle with fat layer exposed; I70.233 Atherosclerosis of native arteries of right leg with ulceration of ankle; L97.311 Non-pressure chronic ulcer of right ankle limited to breakdown of skin; S80.812D Abrasion, left lower leg, subsequent encounter; I87.2 Venous insufficiency (chronic) (peripheral); I70.242 Atherosclerosis of native arteries of left leg with ulceration of calf; L97.221 Non-pressure chronic ulcer of left calf limited to breakdown of skin; R60.0 Localized edema; I48.91 Unspecified atrial fibrillation; I50.9 Heart failure, unspecified; E87.1 Hypo-osmolality and hyponatremia; B36.9 Superficial mycosis, unspecified; X58.XXXD Exposure to other specified factors, subsequent encounter

== ENCOUNTER → 2020-02-04 | Outpatient (CLI) | payer OTHER | LOC: HYPER 13:14 | PROVIDERS: ATTEND Emergency Medicine | DX: T81.89XD Other complications of procedures, not elsewhere classified, subsequent encounter (principal); I70.243 Atherosclerosis of native arteries of left leg with ulceration of ankle; L97.322 Non-pressure chronic ulcer of left ankle with fat layer exposed; I70.233 Atherosclerosis of native arteries of right leg with ulceration of ankle; L97.311 Non-pressure chronic ulcer of right ankle limited to breakdown of skin; I70.242 Atherosclerosis of native arteries of left leg with ulceration of calf; L97.221 Non-pressure chronic ulcer of left calf limited to breakdown of skin; I70.248 Atherosclerosis of native arteries of left leg with ulceration of other part of lower leg; L97.811 Non-pressure chronic ulcer of other part of right lower leg limited to breakdown of skin; S80.812D Abrasion, left lower leg, subsequent encounter; I87.2 Venous insufficiency (chronic) (peripheral); L84 Corns and callosities; I48.91 Unspecified atrial fibrillation; I50.9 Heart failure, unspecified; E87.1 Hypo-osmolality and hyponatremia; B36.9 Superficial mycosis, unspecified; Z79.01 Long term (current) use of anticoagulants; X58.XXXD Exposure to other specified factors, subsequent encounter; Y83.8 Other surgical procedures as the cause of abnormal reaction of the patient, or of later complication, without mention of misadventure at the time of the procedure ==

== ENCOUNTER → 2020-02-28 | Outpatient (CLI) | payer OTHER | LOC: HYPER 06:25 | PROVIDERS: ATTEND Emergency Medicine | DX: T81.89XD Other complications of procedures, not elsewhere classified, subsequent encounter (principal); I70.243 Atherosclerosis of native arteries of left leg with ulceration of ankle; L97.322 Non-pressure chronic ulcer of left ankle with fat layer exposed; I70.233 Atherosclerosis of native arteries of right leg with ulceration of ankle; L97.312 Non-pressure chronic ulcer of right ankle with fat layer exposed; I70.238 Atherosclerosis of native arteries of right leg with ulceration of other part of lower leg; L97.812 Non-pressure chronic ulcer of other part of right lower leg with fat layer exposed; I70.242 Atherosclerosis of native arteries of left leg with ulceration of calf; L97.222 Non-pressure chronic ulcer of left calf with fat layer exposed; I70.232 Atherosclerosis of native arteries of right leg with ulceration of calf; L97.211 Non-pressure chronic ulcer of right calf limited to breakdown of skin; S80.812D Abrasion, left lower leg, subsequent encounter; I87.2 Venous insufficiency (chronic) (peripheral); R60.0 Localized edema; I48.91 Unspecified atrial fibrillation; I50.9 Heart failure, unspecified; E87.1 Hypo-osmolality and hyponatremia; B36.9 Superficial mycosis, unspecified; L84 Corns and callosities; Z79.01 Long term (current) use of anticoagulants; X58.XXXD Exposure to other specified factors, subsequent encounter; Y83.8 Other surgical procedures as the cause of abnormal reaction of the patient, or of later complication, without mention of misadventure at the time of the procedure ==

== ENCOUNTER → 2020-02-28 | Outpatient (CLI) | payer OTHER | LOC: SJCVCIMAG | PROVIDERS: ATTEND Internal Medicine | DX: R59.0 Localized enlarged lymph nodes (principal); M71.21 Synovial cyst of popliteal space [Baker], right knee ==

== ENCOUNTER 2020-03-02 11:37 | Inpatient (IN) | payer OTHER ==
[~2020-03-02] VITALS: Ht 165.1 cm; Wt 58.5 kg
[2020-03-02 11:42] VITALS: BP 128/42
[2020-03-02 13:01] LABS: HEMATOCRIT 26.7 % (37.0-47.0); HEMOGLOBIN 8.7 gm/dL (12.0-15.0); MCH 31.6 pg (26.0-34.0); MCHC 32.6 g/dL (28.0-37.0); RBC 2.75 mil/uL (4.20-5.00); RDW 14.8 % (10.5-14.5)
[2020-03-02 13:03] LABS: ANION GAP 11 mmol/L (7-16); BUN 60 mg/dL (7-18); CALCIUM 8.6 mg/dL (8.5-10.1); CHLORIDE 92 mmol/L (98-107); CO2 23 mmol/L (21-32); GLUCOSE 80 mg/dL (74-106); POTASSIUM 5.7 mmol/L (3.5-5.1); SODIUM 126 mmol/L (136-145)
[2020-03-02 13:12] LABS: TROPONIN-I <0.06 ng/mL (<0.06)
[2020-03-02 13:15] LABS: APTT 31.7 Seconds (24.5-32.8); INR 1.3; PROTIME 12.9 Seconds (9.3-11.4)
[2020-03-02 14:15] VITALS: BP 122/89
[2020-03-02 14:47] VITALS: BP 148/82
[2020-03-02 15:39] VITALS: BP 141/80
[2020-03-02 15:44] LABS: ALBUMIN 3.7 g/dL (3.4-5.0); TOTAL PROTEIN 8.2 g/dL (6.4-8.2)
[2020-03-02 15:59] LABS: URINE BILIRUBIN NEGATIVE (Negative); URINE BLOOD NEGATIVE (Negative); URINE CLARITY CLEAR; URINE COLOR YELLOW; URINE GLUCOSE-RANDOM* NEGATIVE (Negative); URINE KETONES NEGATIVE (Negative); URINE LEUKOCYTES-REFLEX NEGATIVE (Negative); URINE NITRITE-REFLEX NEGATIVE (Negative); URINE PROTEIN (DIPSTICK) NEGATIVE (Negative); URINE UROBILINOGEN 0.2 E.U./dl (0.2-1.0)
[2020-03-02 16:09] LABS: TSH 17.342 uIU/mL (0.358-3.740)
--- NOTE | 2020-03-02 16:48 | EKG ---
[facility] [place] [address] ELECTROCARDIOGRAM REPORT Name: HAYDER GUTIERREZ Room #: 215-P ADM IN M.R.#: [id number] Admission: 03/02/20 Attend Phys: Raf Cuevas MD Discharge: Date of : 31 Report #: [id number] THIS REPORT FOR: cc: Jason Hyatt Theodore M. DO Lundgren, Craig H. MD LOCATED WITHIN [facility] THIS REPORT FOR: //name// [facility] ED Test Date: 2020-03-02 Test Time: 12:49:37 Pat Name: HAYDER GUTIERREZ Department: Room: 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 : 1930 Requested By: Stan Carrillo Order Number: [id number] MD: Jerad Lei Measurements Intervals Cost Rate: 37 P: IN: QRS: -25 QRSD: 150 T: -30 QT: 522 QTc: 410 Interpretive Statements Atrial fibrillation with a slow ventricular response Right bundle branch block Baseline wander in lead(s) V6 Compared to ECG 01/09/2019 08:21:08 Heart rate has slowed Right bundle-branch block now present Electronically Signed On 03-02-2020 16:48:35 CDT by Jerad Lei [email or web address] <ELECTRONICALLY SIGNED> By: Jerad Lei MD, [facility] 03/02/20 1648 1249 1249 Jerad Lei MD, [facility] /EPI
--- NOTE | 2020-03-02 16:49 | EKG ---
[facility] [place] [address] ELECTROCARDIOGRAM REPORT Name: HAYDER GUTIERREZ Room #: 215-P ADM IN M.R.#: [id number] Admission: 03/02/20 Attend Phys: Raf Cuevas MD Discharge: Date of : 31 Report #: [id number] THIS REPORT FOR: cc: Jason Hyatt Theodore M. DO Lundgren, Craig H. 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: Dione ARAUZ : 1930 Requested By: Raf Cuevas Order Number: [id number] MD: Jerad Lei Measurements Intervals [place] Rate: 87 P: UT: QRS: 211 QRSD: 125 T: 24 QT: 374 QTc: 450 Interpretive Statements Atrial fibrillation Inferior infarct, age indeterminate Compared to ECG 03/02/2020 12:49:37 Right bundle-branch block no longer present Electronically Signed On 03-02-2020 16:49:44 CDT by Jerad Lei [email or web address] <ELECTRONICALLY SIGNED> By: Jerad Lei MD, [facility] 03/02/20 1649 160 01 Jerad Lei MD, [facility] /EPI
[2020-03-02 17:52] LABS: CALCIUM 9.5 mg/dL (8.5-10.1); CREATININE 1.8 mg/dL (0.6-1.0); MAGNESIUM 2.5 mg/dL (1.8-2.4)
[2020-03-02 17:57] LABS: POTASSIUM 4.4 mmol/L (3.5-5.1)
--- NOTE | 2020-03-02 18:25 | NUR ---
NEW ADMIT FOR HYPERKALEMIA, BRADICARDIA, WEAKNESS. ALERT X4, CHRONIC PAIN TO RIGHT LE. ASSIST X1 TO COMMODE C URGENCY. ALERTX4, ABLE TO MAKE NEEDS KNOWN. FALL PRECAUTION IN PLACE. ADMISSION ASSESMENT, HISTORY, EDUCATION COMPLETED. CONSCENTS SIGNED. CALL LIGHT IN REACH. BED ALARM SET
[2020-03-02 20:45] VITALS: BP 131/89
--- NOTE | 2020-03-03 02:32 | NUR ---
ASSESSMENTS CHARTED, MEDS CHARTED GIVEN. PATIENT IS HAVING FREQUENT DIARRHEA STOOLS AT START OF SHIFT. PATIENT VERY WEAK AND SHAKY TO BSC. FALL PRECAUTIONS IN PLACE DURING SHIFT. DENIED PAIN.
[2020-03-03 05:46] VITALS: BP 114/73
[2020-03-03 08:00] VITALS: BP 118/59
[2020-03-03 10:03] LABS: HEMATOCRIT 25.1 % (37.0-47.0); HEMOGLOBIN 8.4 gm/dL (12.0-15.0); MCHC 33.5 g/dL (28.0-37.0); MCV 95.4 fL (80.0-100.0); RBC 2.63 mil/uL (4.20-5.00); RDW 14.5 % (10.5-14.5); WBC 6.7 thou/uL (4.0-11.0)
--- NOTE | 2020-03-03 10:04 | NUR ---
pt assessed, reviewed poc, pt verbalized understanding, seemed very anxious about pain in ankles and in right shoulder, Dr Pearl in to see pt, xray ordered, will monitor
[2020-03-03 10:14] LABS: CREATININE 1.8 mg/dL (0.6-1.0); MAGNESIUM 2.2 mg/dL (1.8-2.4); POTASSIUM 3.9 mmol/L (3.5-5.1)
[2020-03-03 12:00] VITALS: BP 122/59
[2020-03-03 15:30] VITALS: BP 109/57
--- NOTE | 2020-03-03 17:05 | NUR ---
Met with patient who resides in independent retirment community named [facility]. 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 She lives with her spouse who has parkinsons. At times patient assists with his adls. She has a rolator walker she uses to get meals at community and bring to room. She reports she admitted with weakness she feels is getting better. She has [facility] care coming to assist with wrapping of her legs. She is agreeable to HH at me with [facility] [place] if ordered. PCP Dr Hyatt. She reports at her community while she is in hospital her son staying with her spouse. She reports corporate had to approve son staying with patients spouse one more night as they have covid visitor restrictions. Patient reports she does not know what son will do tomorrow. Attempted to call son. respite care information may be beneficial to son if needed. [facility] following plan home with HH at me if ordered.
[2020-03-03 20:16] VITALS: BP 111/57
--- NOTE | 2020-03-04 01:26 | NUR ---
ASSESSMENTS CHARTED, MEDS CHARTED GIVEN. PATIENT RESTING IN BED DURING SHIFT. UP TO BSC WITH ASSIST X 1. HAS NOT HAD DIARRHEA IN LAST 24 HOURS. C/O PAIN AT BOTH ANKLES WHERE WOUNDS ARE LOCATED. SCHEDULED PAIN MED GIVEN. MRI SHOWED RT TORN ROTATOR CUFF. PLAN OF CARE IS TO HAVE MRI OF BACK. FALL PRECAUTIONS IN PLACE DURING SHIFT.
[2020-03-04 05:36] LABS: CREATININE 1.3 mg/dL (0.6-1.0); MAGNESIUM 2.2 mg/dL (1.8-2.4); POTASSIUM 4.6 mmol/L (3.5-5.1)
[2020-03-04 05:40] VITALS: BP 127/72
[2020-03-04 06:05] LABS: HEMATOCRIT 24.2 % (37.0-47.0); HEMOGLOBIN 8.1 gm/dL (12.0-15.0); MCH 32.2 pg (26.0-34.0); MCHC 33.4 g/dL (28.0-37.0); MCV 96.3 fL (80.0-100.0); RBC 2.52 mil/uL (4.20-5.00); RDW 14.3 % (10.5-14.5); WBC 5.8 thou/uL (4.0-11.0)
[2020-03-04 07:20] VITALS: BP 138/70
--- NOTE | 2020-03-04 07:58 | HC ---
[facility] [place] [address] CONSULTATION Name: HAYDER GUTIERREZ Room #: 215-P ADM IN M.R.#: [id number] Admission: 03/02/20 Attend Phys: Raf Cuevas MD Discharge: Date of : 31 Report #: [id number] THIS REPORT FOR: cc: Jason Hyatt,Adonay Gallagher MD ~ CC: Raf Hyatt DATE OF SERVICE: 03/02/2020 WOUND CARE CONSULTATION NOTE REASON FOR CONSULTATION: Venous stasis of bilateral lower extremities with small venous stasis ulcers and abrasion of left leg and ankle. HISTORY OF PRESENT ILLNESS: The patient is an 89-year-old woman, very well known to Dr. Marco A Smith and seen at [facility]. She was last seen recently in the Wound Care Clinic on , 02/28/2020. The patient is admitted now for weakness and shakiness in her right arm. She is being evaluated for possible cerebrovascular event. She felt some lightheadedness, had some right hand weakness and is to rule out transient ischemic attack versus stroke with a Neurology consult and MRI of head. The patient has known venous stasis of bilateral lower extremities and has had small venous stasis ulcerations and abrasions recently, treated in the clinic on . In the past, she has had vein treatments done by Dr. Dowling. Wound care is consulted now for her venous stasis and leg ulcers during this hospitalization. PAST MEDICAL HISTORY: Atrial fibrillation, hypertension, hyperlipidemia, chronic venous stasis of lower extremities, history of closed head injury and history osteomyelitis of ankle. ALLERGIES: SULFAMETHOXAZOLE AND TRIMETHOPRIM, SULFA DRUGS. MEDICATIONS: Include Cardizem, Tylenol, Eliquis, Neurontin, potassium, Ultram, Pacerone, vitamins, Lasix, Zocor and Synthroid. REVIEW OF SYSTEMS: The patient had some lightheadedness right arm weakness. PHYSICAL EXAMINATION: GENERAL: Shows an elderly woman who is alert, pleasant, and a good historian. HEENT: Mucous membranes are moist. NECK: Supple. LUNGS: Respirations unlabored. EXTREMITIES: Examination of the lower extremities show chronic pigment deposition in both legs indicative of chronic venous stasis. There is a small [facility] [address] [place] [address] CONSULTATION Name: HAYDER GUTIERREZ Room #: 215-P [facility] IN M.R.#: [id number] Admission: 03/02/20 Attend Phys: Raf Cuevas MD Discharge: Date of : 31 Report #: [id number] venous stasis ulceration on the medial aspect of the right calf measuring less than 1 cm. The patient has small abrasions of the left lower leg and ankle and a small open wound, possibly related to venous stasis. Dorsalis pedis pulses are present in both feet. IMPRESSION: 1. Possible neurologic symptoms. Rule out transient ischemic attack or stroke. 2. Atrial fibrillation, on Eliquis. 3. Chronic venous stasis of bilateral lower extremities with small venous stasis ulcerations. 4. Abrasions of the left foot and ankle and leg. PLAN: Her abrasions of the venous stasis ulcerations are very small, triple antibiotic ointment to the small open areas, cover with Band-Aid, Tubigrip stockings to both legs. wound care team. Dr. Smith will follow her while in the hospital. She has good pulses in both feet. Wound care team will follow. <ELECTRONICALLY SIGNED> By: Adonay Chavira MD 03/04/20 0758 23 54 Adonay Chavira MD /nt
--- NOTE | 2020-03-04 11:11 | 2DMMODE ---
[facility] [place] [address] 2 D/M-MODE ECHOCARDIOGRAM Name: HAYDER GUTIERREZ Room #: 215-P ADM IN M.R.#: [id number] Admission: 03/02/20 Attend Phys: Raf Cuevas MD Discharge: Date of : 31 Report #: [id number] THIS REPORT FOR: cc: Jason Hyatt Theodore M. DO Park, Jin S. MD ~ APPROVED REPORT Study performed: 03/04/2020 09:41:24 EXAM: Comprehensive 2D, Doppler, and color-flow Echocardiogram Patient Location: Bedside Room #: 215 Status: routine BSA: 1.64 HR: 61 bpm BP: 138/70 mmHg Rhythm: NSR Other Information Study Quality: Good Indications Bradycardia Fatigue Hx: A-fib, HTN, HLP. 2D Dimensions RVDd: 43.63 mm IVSd: 13.78 (7-11mm) LVOT Diam: 17.11 (18-24mm) LVDd: 37.00 mm PWd: 14.36 (7-11mm) Ascending Ao: 37.24 (22-36mm) LVDs: 26.23 (25-40mm) Aortic Root: 38.00 mm Volumes Left Atrial Volume (Systole) Single Plane 4CH: 45.76 mL Single Plane 2CH: 56.93 mL LA ESV Index: 36.00 mL/m2 Aortic Valve AoV Peak Michael.: 1.14 m/s AO Peak Gr.: 5.19 mmHg LVOT Max P.28 mmHg LVOT Max V: 1.03 m/s [facility] [address] [place] [address] 2 D/M-MODE ECHOCARDIOGRAM Name: BRENDAHAYDER E Room #: 215-P [facility]#: [id number] Admission: 03/02/20 Attend Phys: Raf Cuevas, Discharge: Date of : 31 Report #: [id number] ARCADIO Vmax: 2.09 cm2 Mitral Valve E/A Ratio: 1.6 MV Decel. Time: 205.59 ms MV E Max Michael.: 0.95 m/s MV A Michael.: 0.59 m/s MV PHT: 59.62 ms IVRT: 69.20 ms Pulmonary Valve PV Peak Michael.: 0.74 m/s PV Peak Gr.: 2.19 mmHg Tricuspid Valve TR Peak Michael.: 2.85 m/s RAP Estimate: 15.00 mmHg TR Peak Gr.: 32.40 mmHg PA Pressure: 47.00 mmHg Left Ventricle The left ventricle is normal size. There is normal LV segmental wall motion. Mild concentric left ventricular hypertrophy. Left ventricular systolic function is normal. LVEF is 55-60%. Right Ventricle Right ventricle is dilated. Right ventricle is hypokinetic. Atria Left atrium is dilated. Right atrium is dilated. Aortic Valve Aortic valve leaflets are mildly thickened. Trace aortic regurgitation. There is no aortic valvular stenosis. Mitral Valve Moderate mitral annular calcification. Mild to moderate mitral regurgitation. No evidence of mitral valve stenosis. Tricuspid Valve The tricuspid valve is normal in structure. Moderate to severe tricuspid regurgitation. Estimated PAP 45-50mmHg. Pulmonic Valve The pulmonary valve is normal in structure. Trace pulmonic regurgitation. [facility] [address] [place] [address] 2 D/M-MODE ECHOCARDIOGRAM Name: HAYDER GUTIERREZ Room #: 215-P [facility] IN ..#: [id number] Admission: 03/02/20 Attend Phys: Raf Cuevas, Discharge: Date of : 31 Report #: [id number] Great Vessels Aortic root is mildly dilated. The ascending aorta is normal in size. IVC is dilated and collapses <50% with inspiration. Pericardium There is no pericardial effusion. <Conclusion> The left ventricle is normal size. Mild concentric left ventricular hypertrophy. Left ventricular systolic function is normal. Right ventricle is dilated. Right atrium is dilated. Aortic valve leaflets are mildly thickened. Mild to moderate mitral regurgitation. Moderate to severe tricuspid regurgitation. Estimated PAP 45-50mmHg. <ELECTRONICALLY SIGNED> By: Jean Pierre Hernandez MD 03/04/20 1111 1111 1111 Jean Pierre Hernandez MD /INF
[2020-03-04 11:32] VITALS: BP 117/61
--- NOTE | 2020-03-04 12:10 | NUR ---
PT DISCHARGING TODAY TO HOME WITH [facility] FAXED DC ORDERS/SUMMARY SPOKE WITH ZA IN INTAKE THEY RECEIVED ORDERS AND WILL RESUME CARE. THEY WILL CALL PT TO SET UP VISITS.
--- NOTE | 2020-03-04 12:15 | NUR ---
PT IS ON SERVICE WITH [facility] PRIOR TO ADM FAXED CLINICAL UPDATE SPOKE WITH ZA IN INTAKE SHE RECEIVED UPDATE AND WILL RESUME CARE AT DISCHARGE.
--- NOTE | 2020-03-04 14:18 | NUR ---
spoke with therapy. Son returned call and left message. Casemgt attemted to call son again. Cont plan home with [facility].
[2020-03-04 15:39] VITALS: BP 121/62
--- NOTE | 2020-03-04 17:29 | NUR ---
ASSUMED CARE OF PT AT SHIFT CHANGE. ASSESSMENTS CHARTED. MEDS GIVEN PER AUG. PT A&OX4. PT PAIN TREATED WITH SCHEDULED PAIN MEDS. ECHO AND MRI COMPLETE. WAITING FOR STOOL SAMPLE. PLAN FOR POSSIBLE DC TOMORROW. WILL CONTINUE TO MONITOR AND FOLLOW POC.
[2020-03-04 19:43] VITALS: BP 122/67
--- NOTE | 2020-03-05 03:26 | NUR ---
ASSESSMENTS CHARTED, MEDS CHARTED GIVEN. [facility] USING WALKER OR IV POLE FOR AIDE. C/O PAIN IN BILATERAL ANKLES CONTROLLED BY SCHEDULED PAIN MEDS. RECEIVING MAINTENANCE FLUIDS. PLAN OF CARE IS TO FOLLOW UP WITH NEURO SURGEON FOR COMPRESSION FRACTURE OF L4. PATIENT SCHEDULED TO GO HOME WITH THE CURRENT HOME HEALTH SERVICE PREVIOUSLY USING. FALL PRECAUTIONS IN PLACE DURING SHIFT.
[2020-03-05 05:40] VITALS: BP 147/82
[2020-03-05 06:07] LABS: MAGNESIUM 2.1 mg/dL (1.8-2.4); POTASSIUM 4.5 mmol/L (3.5-5.1)
[2020-03-05 06:10] LABS: HEMATOCRIT 24.5 % (37.0-47.0); HEMOGLOBIN 8.3 gm/dL (12.0-15.0); MCH 32.4 pg (26.0-34.0); MCHC 33.8 g/dL (28.0-37.0); MCV 95.8 fL (80.0-100.0); RBC 2.56 mil/uL (4.20-5.00); RDW 14.4 % (10.5-14.5); WBC 5.5 thou/uL (4.0-11.0)
[2020-03-05 11:43] VITALS: BP 146/70
[2020-03-05 11:53] VITALS: BP 146/70
[2020-03-05 12:49] VITALS: BP 146/70
[2020-03-05 13:08] VITALS: BP 146/70
--- NOTE | 2020-03-05 13:09 | NUR ---
ASSUMED CARE OF PT AT SHIFT CHANGE. ASSESSMENTS CHARTED. MEDS GIVEN PER AUG. PT A&OX4, NO C/O PAIN. DRESSINGS CHANGED. DISCHARGE ORDERS AND INSTRUCTIONS COMPLETE. TELE AND IV DC'D. PT TAKEN TO [facility] ENTRANCE IN WHEELCHAIR TO SON WAITING IN CAR.
--- NOTE | 2020-03-05 16:58 | NUR ---
PT DISCHARGING TODAY TO HOME WITH [facility] FAXED DC ORDERS/SUMMARY RECEOVED CONFIRMATION AND LEFT MSG WITH INTAKE. THEY WILL NOTIFY PT TIME OF VISITS.
--- NOTE | 2020-03-06 18:43 | HC ---
[facility] [place] [address] CONSULTATION Name: HAYDER GUTIERREZ Room #: 215-P [facility] IN M.R.#: [id number] Admission: 03/02/20 Attend Phys: Raf Cuevas MD Discharge: 03/05/20 Date of : 31 Report #: [id number] THIS REPORT FOR: cc: Jason Hyatt,Hay Sales MD ~ CC: Raf Hyatt DATE OF SERVICE: 03/03/2020 HISTORY OF PRESENT ILLNESS: This is an 89-year-old female patient who was seen by me for somewhat poorly defined history. She said that several days ago, she started having some ambulation difficulty. It started spontaneously, but she said she is better. Before that, she said she was okay. She is complaining of back pain. Back pain is in the lumbar and thoracic area. It started spontaneously without any trauma. She does not know anything, which aggravates or relieves it. She does not believe that it radiates much to the lower extremities. REVIEW OF SYSTEMS: Positive for multiple problems. She has some venous ulcers in the lower extremities. She had a stent put in the lower extremities. She has a history of cholecystectomy, hypertension, high cholesterol, cataract surgery, colonoscopy, breast biopsy, right breast lumpectomy with lymph node dissection, oral surgery, lower extremity stenting, bilateral lower extremity cellulitis, and hypothyroidism. This was her relevant 14-point review of system. PAST MEDICAL HISTORY: Negative for back pain as I understand from her. FAMILY HISTORY: Unremarkable. SOCIAL HISTORY: She says she does not drink or smoke. PHYSICAL EXAMINATION: Indicates she is alert, responsive, able to follow simple and complex command. Cranial nerve examination 2-12 looks unremarkable. She does appear to have reasonable strength. She does [id number]-gmrj okay. She is complaining of pain when I do the radc-kp-cpmc, it is mostly in the back. She says pinprick is altered, but not in a particular dermatome. She is able to appreciate the position sense. Vibration sense, she did not do well. There is no meningeal sign. I could not look at the fundus. Cardiac and respiratory examinations appear noncontributory. Blood pressure is 109/57, respirations 18, pulse is 65, temperature is 97.5. Pulses are difficult to palpate in the lower extremities. She does not have any thyroid mass or carotid bruit. She is moderately built individual who does not have any dysmorphic features of eyes, ears and face. [address] [address] CONSULTATION Name: HAYDER GUTIERREZ Room #: 215-P [facility] IN M.R.#: [id number] Admission: 03/02/20 Attend Phys: Raf Cuevas MD Discharge: 03/05/20 Date of : 31 Report #: [id number] LABORATORY DATA: Her white count is 6.7. GFR is only 26. In 2019, it was normal. IMPRESSION AND PLAN: This patient is complaining of back pain. We should work that up further, but this patient also needs workup for renal problem because a part of it may be contributing to her symptoms. I will first do an MRI of the back on her and see what it shows. Depending upon that, we may have to do further workup. All of it was discussed with the patient and the patient was also discussed with the nurse and we will follow up this patient with you from tomorrow. <ELECTRONICALLY SIGNED> By: Hay Vines MD 03/06/20 1843 1821 1834 Hay Vines MD /nt
== END 2020-03-05 13:01 | disposition home health service (06) | DRG 640 ==
LOC: ER 11:37 → 2N 14:13 → EROBS 14:13 → 2N 14:47
PROVIDERS: Emergency Medicine; ADMIT Internal Medicine; ATTEND Internal Medicine
DX: E87.5 Hyperkalemia (principal); N17.0 Acute kidney failure with tubular necrosis; L97.829 Non-pressure chronic ulcer of other part of left lower leg with unspecified severity; L97.819 Non-pressure chronic ulcer of other part of right lower leg with unspecified severity; L03.116 Cellulitis of left lower limb; I13.0 Hypertensive heart and chronic kidney disease with heart failure and stage 1 through stage 4 chronic kidney disease, or unspecified chronic kidney disease; E87.1 Hypo-osmolality and hyponatremia; E03.9 Hypothyroidism, unspecified; E78.00 Pure hypercholesterolemia, unspecified; R00.1 Bradycardia, unspecified; I73.9 Peripheral vascular disease, unspecified; E78.5 Hyperlipidemia, unspecified; I87.8 Other specified disorders of veins; I48.0 Paroxysmal atrial fibrillation; M25.511 Pain in right shoulder; N18.9 Chronic kidney disease, unspecified; D50.9 Iron deficiency anemia, unspecified; I50.9 Heart failure, unspecified; M48.061 Spinal stenosis, lumbar region without neurogenic claudication; Z90.49 Acquired absence of other specified parts of digestive tract; Z98.41 Cataract extraction status, right eye; Z85.3 Personal history of malignant neoplasm of breast; Z88.2 Allergy status to sulfonamides; Z88.8 Allergy status to other drugs, medicaments and biological substances; Z82.49 Family history of ischemic heart disease and other diseases of the circulatory system; Z82.3 Family history of stroke; Z95.820 Peripheral vascular angioplasty status with implants and grafts; Z79.899 Other long term (current) drug therapy
CPT/HCPCS: 10081

== ENCOUNTER → 2020-03-10 | Outpatient (CLI) | payer OTHER | LOC: HYPER 13:18 | PROVIDERS: ATTEND Emergency Medicine | DX: T81.89XD Other complications of procedures, not elsewhere classified, subsequent encounter (principal); I70.243 Atherosclerosis of native arteries of left leg with ulceration of ankle; L97.322 Non-pressure chronic ulcer of left ankle with fat layer exposed; I70.233 Atherosclerosis of native arteries of right leg with ulceration of ankle; L97.312 Non-pressure chronic ulcer of right ankle with fat layer exposed; L97.812 Non-pressure chronic ulcer of other part of right lower leg with fat layer exposed; L97.822 Non-pressure chronic ulcer of other part of left lower leg with fat layer exposed; L97.222 Non-pressure chronic ulcer of left calf with fat layer exposed; S80.812A Abrasion, left lower leg, initial encounter; L84 Corns and callosities; R60.0 Localized edema; B36.9 Superficial mycosis, unspecified; E87.1 Hypo-osmolality and hyponatremia; I87.2 Venous insufficiency (chronic) (peripheral); I48.91 Unspecified atrial fibrillation; I50.9 Heart failure, unspecified; X58.XXXA Exposure to other specified factors, initial encounter; Y93.89 Activity, other specified; Y92.89 Other specified places as the place of occurrence of the external cause; Y99.8 Other external cause status; Y83.8 Other surgical procedures as the cause of abnormal reaction of the patient, or of later complication, without mention of misadventure at the time of the procedure ==

== ENCOUNTER → 2020-03-17 | Outpatient (CLI) | payer OTHER | LOC: HYPER 13:51 | PROVIDERS: ATTEND Emergency Medicine | DX: I70.233 Atherosclerosis of native arteries of right leg with ulceration of ankle (principal); L97.312 Non-pressure chronic ulcer of right ankle with fat layer exposed; I70.243 Atherosclerosis of native arteries of left leg with ulceration of ankle; L97.322 Non-pressure chronic ulcer of left ankle with fat layer exposed; I70.238 Atherosclerosis of native arteries of right leg with ulceration of other part of lower leg; L97.812 Non-pressure chronic ulcer of other part of right lower leg with fat layer exposed; I70.248 Atherosclerosis of native arteries of left leg with ulceration of other part of lower leg; L97.822 Non-pressure chronic ulcer of other part of left lower leg with fat layer exposed; I70.242 Atherosclerosis of native arteries of left leg with ulceration of calf; L97.222 Non-pressure chronic ulcer of left calf with fat layer exposed; S80.812D Abrasion, left lower leg, subsequent encounter; I87.2 Venous insufficiency (chronic) (peripheral); R60.0 Localized edema; I48.91 Unspecified atrial fibrillation; I50.9 Heart failure, unspecified; E87.1 Hypo-osmolality and hyponatremia; B36.9 Superficial mycosis, unspecified; I73.89 Other specified peripheral vascular diseases; Z79.01 Long term (current) use of anticoagulants; X58.XXXD Exposure to other specified factors, subsequent encounter ==

== ENCOUNTER → 2020-03-31 | Outpatient (CLI) | payer OTHER | LOC: HYPER 13:19 | PROVIDERS: ATTEND Emergency Medicine | DX: T81.89XD Other complications of procedures, not elsewhere classified, subsequent encounter (principal); I70.243 Atherosclerosis of native arteries of left leg with ulceration of ankle; L97.322 Non-pressure chronic ulcer of left ankle with fat layer exposed; I70.233 Atherosclerosis of native arteries of right leg with ulceration of ankle; L97.312 Non-pressure chronic ulcer of right ankle with fat layer exposed; I70.238 Atherosclerosis of native arteries of right leg with ulceration of other part of lower leg; L97.812 Non-pressure chronic ulcer of other part of right lower leg with fat layer exposed; I70.242 Atherosclerosis of native arteries of left leg with ulceration of calf; L97.221 Non-pressure chronic ulcer of left calf limited to breakdown of skin; I70.248 Atherosclerosis of native arteries of left leg with ulceration of other part of lower leg; L97.821 Non-pressure chronic ulcer of other part of left lower leg limited to breakdown of skin; S80.812D Abrasion, left lower leg, subsequent encounter; I87.2 Venous insufficiency (chronic) (peripheral); R60.0 Localized edema; I48.91 Unspecified atrial fibrillation; I50.9 Heart failure, unspecified; E87.1 Hypo-osmolality and hyponatremia; B36.9 Superficial mycosis, unspecified; Z79.01 Long term (current) use of anticoagulants; X58.XXXD Exposure to other specified factors, subsequent encounter; Y83.8 Other surgical procedures as the cause of abnormal reaction of the patient, or of later complication, without mention of misadventure at the time of the procedure ==

== ENCOUNTER → 2020-04-14 | Outpatient (CLI) | payer OTHER | LOC: HYPER 10:52 | PROVIDERS: ATTEND Emergency Medicine | DX: T81.89XD Other complications of procedures, not elsewhere classified, subsequent encounter (principal); I70.243 Atherosclerosis of native arteries of left leg with ulceration of ankle; L97.322 Non-pressure chronic ulcer of left ankle with fat layer exposed; I70.233 Atherosclerosis of native arteries of right leg with ulceration of ankle; L97.312 Non-pressure chronic ulcer of right ankle with fat layer exposed; L97.821 Non-pressure chronic ulcer of other part of left lower leg limited to breakdown of skin; S80.812D Abrasion, left lower leg, subsequent encounter; L84 Corns and callosities; I87.2 Venous insufficiency (chronic) (peripheral); R60.0 Localized edema; B36.9 Superficial mycosis, unspecified; I48.91 Unspecified atrial fibrillation; I50.9 Heart failure, unspecified; E87.1 Hypo-osmolality and hyponatremia; Y83.8 Other surgical procedures as the cause of abnormal reaction of the patient, or of later complication, without mention of misadventure at the time of the procedure ==

== ENCOUNTER → 2020-04-21 | Outpatient (CLI) | payer OTHER | LOC: BC 11:04 | PROVIDERS: ATTEND Internal Medicine | DX: Z12.31 Encounter for screening mammogram for malignant neoplasm of breast (principal) ==

== ENCOUNTER → 2020-08-12 | Outpatient (CLI) | payer OTHER | LOC: HYPER 10:40 | PROVIDERS: ATTEND Emergency Medicine | DX: I70.242 Atherosclerosis of native arteries of left leg with ulceration of calf (principal); L97.222 Non-pressure chronic ulcer of left calf with fat layer exposed; I70.232 Atherosclerosis of native arteries of right leg with ulceration of calf; L97.211 Non-pressure chronic ulcer of right calf limited to breakdown of skin; I70.243 Atherosclerosis of native arteries of left leg with ulceration of ankle; L97.322 Non-pressure chronic ulcer of left ankle with fat layer exposed; S80.812D Abrasion, left lower leg, subsequent encounter; L84 Corns and callosities; R60.0 Localized edema; B36.9 Superficial mycosis, unspecified; E87.1 Hypo-osmolality and hyponatremia; I87.2 Venous insufficiency (chronic) (peripheral); I48.91 Unspecified atrial fibrillation; I50.9 Heart failure, unspecified; X58.XXXD Exposure to other specified factors, subsequent encounter ==

== ENCOUNTER → 2020-08-20 | Outpatient (CLI) | payer OTHER | LOC: HYPER 10:40 | PROVIDERS: ATTEND Emergency Medicine | DX: I70.242 Atherosclerosis of native arteries of left leg with ulceration of calf (principal); L97.222 Non-pressure chronic ulcer of left calf with fat layer exposed; I70.232 Atherosclerosis of native arteries of right leg with ulceration of calf; L97.211 Non-pressure chronic ulcer of right calf limited to breakdown of skin; I70.243 Atherosclerosis of native arteries of left leg with ulceration of ankle; L97.322 Non-pressure chronic ulcer of left ankle with fat layer exposed; S80.812D Abrasion, left lower leg, subsequent encounter; L84 Corns and callosities; R60.0 Localized edema; B36.9 Superficial mycosis, unspecified; E87.1 Hypo-osmolality and hyponatremia; I87.2 Venous insufficiency (chronic) (peripheral); I48.91 Unspecified atrial fibrillation; I50.9 Heart failure, unspecified; X58.XXXD Exposure to other specified factors, subsequent encounter ==

== ENCOUNTER → 2020-09-15 | Outpatient (CLI) | payer OTHER | LOC: HYPER 12:35 | PROVIDERS: ATTEND Emergency Medicine | DX: I70.242 Atherosclerosis of native arteries of left leg with ulceration of calf (principal); L97.222 Non-pressure chronic ulcer of left calf with fat layer exposed; I70.232 Atherosclerosis of native arteries of right leg with ulceration of calf; L97.212 Non-pressure chronic ulcer of right calf with fat layer exposed; I70.243 Atherosclerosis of native arteries of left leg with ulceration of ankle; L97.322 Non-pressure chronic ulcer of left ankle with fat layer exposed; I70.238 Atherosclerosis of native arteries of right leg with ulceration of other part of lower leg; L97.812 Non-pressure chronic ulcer of other part of right lower leg with fat layer exposed; S80.812D Abrasion, left lower leg, subsequent encounter; L84 Corns and callosities; R60.0 Localized edema; B36.9 Superficial mycosis, unspecified; E87.1 Hypo-osmolality and hyponatremia; I87.2 Venous insufficiency (chronic) (peripheral); I48.91 Unspecified atrial fibrillation; I50.9 Heart failure, unspecified; X58.XXXD Exposure to other specified factors, subsequent encounter ==

== ENCOUNTER → 2020-10-13 | Outpatient (CLI) | payer OTHER | LOC: HYPER 13:10 | PROVIDERS: ATTEND Emergency Medicine | DX: I70.242 Atherosclerosis of native arteries of left leg with ulceration of calf (principal); L97.222 Non-pressure chronic ulcer of left calf with fat layer exposed; I70.232 Atherosclerosis of native arteries of right leg with ulceration of calf; L97.212 Non-pressure chronic ulcer of right calf with fat layer exposed; I70.243 Atherosclerosis of native arteries of left leg with ulceration of ankle; L97.322 Non-pressure chronic ulcer of left ankle with fat layer exposed; I70.238 Atherosclerosis of native arteries of right leg with ulceration of other part of lower leg; L97.812 Non-pressure chronic ulcer of other part of right lower leg with fat layer exposed; S80.812D Abrasion, left lower leg, subsequent encounter; L84 Corns and callosities; R60.0 Localized edema; B36.9 Superficial mycosis, unspecified; E87.1 Hypo-osmolality and hyponatremia; I87.2 Venous insufficiency (chronic) (peripheral); I48.91 Unspecified atrial fibrillation; I50.9 Heart failure, unspecified; X58.XXXD Exposure to other specified factors, subsequent encounter ==

== ENCOUNTER 2020-10-17 09:49 | Inpatient (IN) | payer OTHER ==
[~2020-10-17] VITALS: Ht 165.1 cm; Wt 54.9 kg
--- NOTE | ~2020-10-17 | HC ---
[facility] [place] [address] CONSULTATION Name: HAYDER GUTIERREZ Room #: 459-P ADM IN M.R.#: [id number] Admission: 10/17/20 Attend Phys: Grupo Esquivel MD Discharge: Date of : 31 Report #: [id number] THIS REPORT FOR: cc: Jason Hyatt Theodore M. DO McKittrick, Richard James MD ~ DOC #: [id number] cc: Grupo Esquivel MD, Dr. Pablito Thornton, Adonay Chavira MD, MD Oscar Joseph MD DATE OF SERVICE: 10/23/2020 REASON FOR CONSULTATION: Small volume partially occlusive right distal DVT. CONSULT REQUESTED BY: Dr. Grupo Esquivel. HISTORY OF PRESENT ILLNESS: The patient is an 89-year-old female who got her feet tangled and fell down. She was brought to the hospital on 10/17, was found to have several fractures of ribs, symphysis pubis and some of other bones. Yesterday on 10/22, about 5 days after admit they had done bilateral ultrasounds for the chronic leg swelling, which she was found to have a distal small right femoral vein partial thrombus in the deep system. We are consulted because this had developed in spite of being on apixaban 2.5 b.i.d. as an outpatient and also here in the hospital. The patient reports having fallen maybe twice in her life. This last time is when her legs got tangled. Another time is when she was helping her with his walker. She looked up and got tangled up in the walker. She reports being very compliant with apixaban. She reports no family history of clots. There was someone with an aneurysm. The patient also looks like she has iron deficiency anemia. Her last endoscopy ____ was 2010. She was Hemoccult positive in 12/2018. Note on the colonoscopy in 06/2009, she had normal except for several diverticuli. The patient states that she has no headache. Her weight has been mostly stable. No fevers, no chills. Does have some mild chronic leg swelling, no worse than usual. No new diarrhea, no new constipation. She is not aware of blood in her urine or stool. She does blames some of her leg troubles from past vein surgery from 5 years ago. I told her I cannot really comment and do not have knowledge about that. PAST MEDICAL HISTORY: Notable for the recent right femoral distal vein partial thrombus in the deep system. History of stasis ulcers, congestive heart failure with atrial fibrillation, peripheral arterial disease with stenting, hypertension, ____, questionable osteomyelitis, weakness, deconditioning, protein calorie malnutrition and acute kidney injury. History of breast cancer about 15 years ago, surgery with ____. No chemo or radiation therapy or antihormone therapy. [address] [address] CONSULTATION Name: HAYDER GUTIERREZ [place] Room #: 459-P [facility] IN Dione.Pooja#: [id number] Admission: 10/17/20 Attend Phys: Grupo Esquivel MD Discharge: Date of : 31 Report #: [id number] FAMILY HISTORY: No one with blood disorders per her description. 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 Nonsmoker. No significant alcohol, no street drugs. Lives at home with her . I think it sounds like an assisted living facility. MEDICATIONS: At this time, currently include apixaban 5 b.i.d., was 2.5 earlier, I will talk with the doctor about this. Also, Senokot 2 tabs b.i.d., atorvastatin 20 at bedtime, amiodarone 100 mg daily, levothyroxine 25 mcg daily, MiraLax 17 grams b.i.d., docusate 100 b.i.d., gabapentin 200 b.i.d., fentanyl p.r.n., Tylenol p.r.n., hydromorphone p.r.n., oxycodone p.r.n., Zofran p.r.n. PHYSICAL EXAMINATION: GENERAL: The patient appears her stated age. VITAL SIGNS: Recent blood pressure ____/61, O2 sat 93%, temperature 97.4, pulse 68, respirations 16, weight is 121 pounds or 54.9 kilograms, height 5 feet 5, 165.1 cm. FACE: Symmetrical. NEUROLOGIC: Alert and oriented. No enlarged lymph nodes in the supraclavicular, cervical, axillary or inguinal region. ABDOMEN: Soft. EXTREMITIES: Without clubbing, cyanosis. There are some bandages in place regarding her wound care. ASSESSMENT AND PLAN: 1. History of small volume partially occlusive DVT in the right femoral vein. Would consider this provoked. I worry about the patient's risk for bleeding with higher dose, especially if she is falling or the iron deficiency. It would be reasonable to either cautiously increase to 5 mg b.i.d. or one could consider 2.5 b.i.d. with repeat ultrasound in several weeks. If the clot is smaller, continue same dose. If it is worse, increase at that time or ____ do the higher dose for several months and decrease after 3 months ____. 2. Iron deficiency anemia. We will provide for IV iron x1 to see if this helps her with her anemia and her leg swelling and deconditioning and stasis ulcer healing. We will need to watch for GI bleeding, but hopefully, this is related to her diet that has been somewhat deficient, though she has also been on oral iron. 3. Fall with multiple fractures, recovered and per others. The patient at risk for future falls. 4. Stasis ulcers, treatment per others. 5. Congestive heart failure and atrial fibrillation, per cardiology and others. 6. History of peripheral arterial disease with stenting per others. 7. History of hypertension, per others. 8. Hyperlipidemia, per others. 9. History of hypothyroid, replace. [address] [address] CONSULTATION Name: HAYDER GUTIERREZ Room #: 459-P [facility] IN M.R.#: [id number] Admission: 10/17/20 Attend Phys: Grupo Esquivel MD Discharge: Date of : 31 Report #: [id number] 10. History of breast cancer, nonrecurrent. 11. History of osteomyelitis, not an issue. We will follow with you. MD MICHELLE Hicks/NIKOLE/ALEXANDERE By: 0818 [id number] Oscar Ballard MD /argenis
[2020-10-17 09:50] VITALS: BP 141/69
[2020-10-17 10:13] LABS: ABSOLUTE NEUTROPHILS 8.1 thou/uL (1.4-8.2); BASOPHILS 0.3 % (0.0-2.0); EOSINOPHILS 1.9 % (0.0-3.0); HEMATOCRIT 28.9 % (37.0-47.0); HEMOGLOBIN 10.1 gm/dL (12.0-15.0); MCH 32.4 pg (26.0-34.0); MCHC 35.1 g/dL (28.0-37.0); MCV 92.2 fL (80.0-100.0); MONOCYTES 7.1 % (1.0-8.0); PLATELET COUNT 261 thou/uL (150-400); POLYS 81.7 % (36.0-66.0); RBC 3.13 mil/uL (4.20-5.00); RDW 14.7 % (10.5-14.5)
[2020-10-17 10:21] LABS: CREATININE 1.7 mg/dL (0.6-1.0); POTASSIUM 4.7 mmol/L (3.5-5.1)
[2020-10-17 10:27] LABS: ALBUMIN 3.6 g/dL (3.4-5.0); TOTAL BILIRUBIN 0.8 mg/dL (0.2-1.0); TOTAL PROTEIN 7.9 g/dL (6.4-8.2)
[2020-10-17 10:35] LABS: APTT 28.4 Seconds (24.5-32.8); PROTIME 10.9 Seconds (10.5-12.1)
[2020-10-17 11:44] VITALS: BP 141/69
--- NOTE | 2020-10-17 11:45 | NUR ---
SPOKE WITH MATHEUS Villegas RN, INFORMED THAT HANDOFF TOOL HAS BEEN SENT
[2020-10-17 12:07] VITALS: BP 125/45
--- NOTE | 2020-10-17 13:23 | EKG ---
[place] [address] [facility] [place] [address] ELECTROCARDIOGRAM REPORT Name: HAYDER GUTIERREZ Room #: 463-P ADM IN M.R.#: [id number] Admission: 10/17/20 Attend Phys: Grupo Esquivel MD Discharge: Date of : 31 Report #: [id number] [facility] ED Test Date: 2020-10-17 Test Time: 10:08:55 Pat Name: HAYDER GUTIERREZ Department: Room: 463 Gender: F Disability Counselor: : 1930 Requested By: Carlos Alberto Osuna Order Number: [id number] MD: Jefferson Shen Measurements Intervals [place] Rate: 63 P: 153 SD: 255 QRS: -34 QRSD: 112 T: -23 QT: 575 QTc: 589 Interpretive Statements AFIB Prolonged SD interval Borderline IVCD with LAD Inferior infarct, old Compared to ECG 03/02/2020 16:02:48 Ectopic atrial rhythm now present First degree AV block now present ST (T wave) deviation now present Prolonged QT interval now present Myocardial infarct finding still present Electronically Signed On 10-17-2020 13:23:43 CDT by Jefferson Shen [email or web address] <ELECTRONICALLY SIGNED> By: Jefferson Shen MD, [facility] 10/17/20 1323 1008 1008 Jefferson Shen MD, [facility] /EPI
[2020-10-17 13:58] VITALS: BP 144/72
--- NOTE | 2020-10-17 15:52 | NUR ---
PT ADMITTED RELATED TO L PUBIC RAMI RASCTURE, LEFT RIB FRACTURES. CM REVIEWED CHART AND SPOKE WITH CARE TEAM. CM MET WITH PT AT BEDSIDE THIS DAY. PT APPEARED TO BE A&O X4. CM ROLE INTRODUCED. PT INDICATED SHE RESIDES AT [facility] CALLED THE [facility]. SHE INDICATED SHE RESIDES WITH HER SPOUSE WHO HAS PARKINSONS. PT INIDCATED SHE USES A 4WW TO GO TO THE DINNING ROOM TO PUMPER HELPER THIER FOOD BUT IS OTHERWISE INDEPENDENT WITH MOBILITY. PT INDICATED SHE HAD USED [facility] IN THE PAST BUT THAT SHE IS CURRENTLY ON SERVICE WITH ANOTHER PROVIDER FOR LYMPHADEMA SERVICES [facility]. CM CALLED [facility] AND PT ISN'T ON SERVICE WITH THEM. CM TRYING TO CHECK WITH [facility]. PT INDICATED THAT HER SON ADRIAN IS STAYING WITH SPOUSE. AWAITING ORTHO CONSULT AND THERAPY ASSESSMENTS. TO DETERMINE DC NEEDS. CM SPOKE ABOUT HH VS SNF WITH POSSIBLE RESPITE STAY FOR SPOUSE. SHE INDICATED THAT SPOUSE IS COMING HER TUESDAY FOR A PROCESURE. CM FOLLOWING REGARDING DC PLANNING.
[2020-10-17 16:41] LABS: URINE BILIRUBIN NEGATIVE (Negative); URINE BLOOD NEGATIVE (Negative); URINE CLARITY CLEAR; URINE COLOR YELLOW; URINE GLUCOSE-RANDOM* NEGATIVE (Negative); URINE KETONES NEGATIVE (Negative); URINE LEUKOCYTES-REFLEX NEGATIVE (Negative); URINE NITRITE-REFLEX NEGATIVE (Negative); URINE PROTEIN (DIPSTICK) NEGATIVE (Negative)
[2020-10-17 17:38] VITALS: BP 113/71
[2020-10-17 20:10] VITALS: BP 124/62
--- NOTE | 2020-10-17 20:13 | NUR ---
ASSUMED PT CARE AT 1230 FROM ED. PT IS ALERT & ORIENTED X4. PT HAS IV SITE ON L AC. PT ON TELE MONITOR. PT STATED USES WALKER AT HOME. PT USES BEDPAN. CALLED DR AND GIVEN DR ORDERED TO INFUSE IV FLUIDS. PT HAD XRAY, CT SCAN AND MRI TODAY. SEND UA AND COVID SWAB DURING THE SHIFT. PT ON ROOM AIR. PT FAMILY AT THE BEDSIDE THIS AFTERNOON. PT ON THE BED, BED ON THE LOWEST POSITION, SIDE RAILS UP, CALL LIGHT WITHIN REACH. WILL CONTINUE TO MONITOR PT. FOLLOW POC. ENDORSE NIGHT NURSE.
[2020-10-18 04:50] LABS: HEMOGLOBIN 8.4 gm/dL (12.0-15.0); MCH 31.8 pg (26.0-34.0); MCHC 33.6 g/dL (28.0-37.0); MCV 94.6 fL (80.0-100.0); RBC 2.65 mil/uL (4.20-5.00); RDW 14.5 % (10.5-14.5); WBC 3.4 thou/uL (4.0-11.0)
[2020-10-18 05:08] LABS: ALBUMIN 2.8 g/dL (3.4-5.0); CALCIUM 8.2 mg/dL (8.5-10.1); CREATININE 1.5 mg/dL (0.6-1.0); MAGNESIUM 2.2 mg/dL (1.8-2.4); PHOSPHORUS 3.8 mg/dL (2.5-4.9); POTASSIUM 4.8 mmol/L (3.5-5.1)
[2020-10-18 07:15] VITALS: BP 121/63
--- NOTE | 2020-10-18 11:48 | NUR ---
ASSUMED PT CARE AROUND 0715. PT ALERT X ORIENTED X 4. ON ROOM AIR. IV LF FA WITH D5 NS/ 125MLS/HR. RT LIMB ALERT. NPO SINCE MIDNIGHT. PT MOVED FROM ROOM 463 TO 459 THERE IS MAINTANCE GOING IN 463. NO PAIN WHILE REST, BUT PAIN WHILE MOVING. USES BED ALMARAZ TO URINATE. FALL PRECAUTION IN PLACE. WILL CONTINUE TO MONITOR.
[2020-10-18 21:05] VITALS: BP 98/55
--- NOTE | 2020-10-19 03:18 | NUR ---
Assumed pt care at 1900. A/OX4,VSS. C/o pain especially with movement. Voiding per bedpan,offered female external cath and agreeable to try it. Purewick applied. Medicated for pain per EMAR with some relief reported. Pt requested to restart her Eliquis/statin d/t no surgical intervention needed. Teresiat Neal notified and meds restarted. Pt resting quietly at this time w/o any distress noted,AFIB on telemetry. Fall precautions in place,calls approp for help.
[2020-10-19 04:25] VITALS: BP 110/52
[2020-10-19 09:06] VITALS: BP 98/56
[2020-10-19 18:10] VITALS: BP 154/73
[2020-10-19 20:10] VITALS: BP 143/70
--- NOTE | 2020-10-19 20:34 | NUR ---
ASSUMED PT CARE AROUND 0700. PT ALERT X ORIENTED X4. ON ROOM AIR. RT LIMB ALERT. IV LEFT FA. PAIN PARTIALLY CONTROLLED BY PAIN MEDICINE.B/L LOWER EXTREMITY CELLULITIS. WOUND DRESSING DONE TODAY.OCCUPATIONAL THERAPY WORKED WITH PT, PATIENT SAT ON EDGE OF THE BED WITH OT. PATIENT HAD CONCERNS OF NO BM SINCE 3 DAYS. RN COMMUNICATED PT'S CONCERN WITH . FALL PRECAUTION IN PLACE. WILL CALL APPROPRIATELY. HOURLY ROUNDING DONE. SHIFT REPORT GIVEN TO LEAD MANUFACTURING ENGINEERING TECH.
--- NOTE | 2020-10-20 04:26 | NUR ---
ALERT AND ORIENTED WITH ANXIETY. PT HAS AN EXTERNAL CATH, VOIDING ADEQUATELY. BLE WITH DRSG INTACT, ELEVATED ON PILLOWS, HEELS OFFLOADED.SATTING OK ON ROOM AIR. AFEBRILE.C/O ABDOMINAL PAIN FORM CONSTIPATION-INSIDE SALES ENGINEER NOTIFIED, ADDED SCHEDULED LAXATIVE WHICH WAS GIVEN TO PATIENT@HS. NO FURTHER CONCERNS.
[2020-10-20 06:28] LABS: HEMATOCRIT 22.2 % (37.0-47.0); HEMOGLOBIN 7.7 gm/dL (12.0-15.0); MCHC 34.8 g/dL (28.0-37.0); MCV 91.9 fL (80.0-100.0); RBC 2.41 mil/uL (4.20-5.00); RDW 14.7 % (10.5-14.5); WBC 4.6 thou/uL (4.0-11.0)
[2020-10-20 06:49] LABS: CALCIUM 7.9 mg/dL (8.5-10.1); POTASSIUM 4.7 mmol/L (3.5-5.1)
[2020-10-20 08:26] VITALS: BP 148/72
--- NOTE | 2020-10-20 13:49 | NUR ---
ASSUMED CARE OF PATIENT AT SHIFT CHANGE; APPROXIMATELY 0715. ASSESSMENT CHARTED. MEDICATIONS ADMINISTERED PER MAR. VSS. PATIENT IS A&OX4; ANXIOUS & C/O PAIN AND DISCOMFORT R/T CONSTIPATION "FOR 24 HOURS". DIGITAL DISIMPACTION PERFORMED PER PROVIDER ORDER; SMALL AMOUNT OF HARD BROWN STOOL REMOVED. MAG CITRATE ADMINISTERED AND TAP WATER ENEMA ORDERED PER PATIENT REQUEST. PT/OT VISITED W PATIENT; PATIENT DECLINED THIS MORNING DUE TO DISCOMFORT. NEUROSURGERY CONSULTED AND AT BEDSIDE FOR NEW FINDINGS OF COMPRESSION FX. SCHEDULED APAP ADMINISTERED. WOUND CARE COMPLETE; C/D/I. FLUIDS D/C'D; IV IS SALINE LOCKED ON L FA W NO ISSUES. PATIENT VOICES NO FURTHER NEEDS. WILL AWAIT FURTHER ORDERS AND CONTINUE TO MONITOR AND FOLLOW PLAN OF CARE
[2020-10-20 15:15] VITALS: BP 151/83
--- NOTE | 2020-10-20 16:23 | NUR ---
PT HAD NEURO SURGERY CONSULT THIS DAY. MACHINE WASHER SAW NO PLAN INDICATED OF THIS NOTE. PT AND OT CONTINUE TO SEE PT SHE COMPLAINED OF CONSTIPATION THIS DAY. CM ATTEMPTED TO VISIT WITH PT THIS DAY REGARDING NEED FOR POST ACUTE CARE STAY THIS DAY AND PT WAS EITHER OCCUPIED OR SLEEPING. CM TO MET WITH PT TO PROVIDE [facility] SNF LIST.
[2020-10-20 19:50] VITALS: BP 122/63
--- NOTE | 2020-10-21 05:48 | NUR ---
Assumed pt care at 1900. A/OX4,VSS. Pt on bedrest per order d/t L4 compression fx,awaiting Neurosurgeon eval.Pt c/o abd cramping,having diarrhea, BS hyperactive. Refused to have the ordered enema/Miralax dose. Purewick replaced and patent with yellow urine. Dsgs to Uzair LE C/D/I. Pt encouraged to use incentive spirometer when awake and doing so. C/o pain LOP 3/10 to pelvis with movement,medicated with Tylenol and effective. Fall precautions in place,calls approp for help.Resting quietly at this time without any distress noted,will continue to monitor pt.
[2020-10-21 07:47] VITALS: BP 138/66
--- NOTE | 2020-10-21 08:03 | HC ---
[facility] [place] [address] CONSULTATION Name: HAYDER GUTIERREZ Room #: 459-P ADM IN M.R.#: [id number] Admission: 10/17/20 Attend Phys: Grupo Esquivel MD Discharge: Date of : 31 Report #: [id number] THIS REPORT FOR: cc: Jason Hyatt Theodore M. DO Jetmore, Allen B. MD ~ DATE OF SERVICE: 10/19/2020 WOUND CARE CONSULTATION REASON FOR CONSULTATION: Chronic venous stasis ulceration with mild cellulitis of both legs. HISTORY OF PRESENT ILLNESS: The patient is an 89-year-old woman who has suffered multiple falls. She had rib fractures in the past. She is admitted now after a fall with facial contusions, chest contusions with old rib fractures and new left pubic ramus fracture. Wound care is consulted due to wounds of her legs, which are painful. She has been treated in the clinic by Dr. Marco A Smith for chronic venous stasis ulcers. She had seen Dr. Joe Dowling of [facility] for venous stasis of the legs, but she feels this made it worse. She complains of some draining sore wound of the legs. PAST MEDICAL HISTORY: 1. Atrial fibrillation with rapid ventricular response, on anticoagulation. 2. Recent rib fractures. 3. Recent facial contusions. 4. New fracture of left pubic ramus. 5. History of osteomyelitis of the ankle. ALLERGIES: TO BACTRIM, TRIMETHOPRIM, SULFA. LABORATORY DATA: Albumin 3.6. CAT scan shows left pubic ramus fracture. PHYSICAL EXAMINATION: GENERAL: Shows a frail-appearing elderly woman who is alert, pleasant, conversant. HEENT: Mucous membranes are moist. NECK: Supple. LUNGS: Respirations unlabored. ABDOMEN: Soft. EXTREMITIES: The patient has left hip pain. Examination of the lower extremities shows pigment deposition in the legs indicative of chronic venous stasis. Dressings are removed. There are superficial open wounds of the left [facility] [address] [place] [address] CONSULTATION Name: HAYDER GUTIERREZ Room #: 459-P [facility] IN M.R.#: [id number] Admission: 10/17/20 Attend Phys: Grupo Esquivel MD Discharge: Date of : 31 Report #: [id number] and right ankle which appear chronic. These are slightly tender and mildly cellulitic. There is a dry crusted exudate. Wounds are small. These appear to be chronic venous stasis ulcers. IMPRESSION: 1. Fall with facial contusion, recent rib fractures, new left pubic ramus fracture. 2. Immobility. 3. Chronic venous stasis of lower extremities with mild cellulitis. PLAN: Topical gentamicin 0.1%, Xeroform, ABD, Kerlix wrap for wounds of the legs. The patient is well familiar to the wound care team and Dr. Smith. She has been seen in the clinic multiple times. Care of her leg wounds would primarily be in an outpatient setting in the clinic for chronic venous stasis. We will manage her while she is in the hospital. <ELECTRONICALLY SIGNED> By: Adonay Chavira MD 10/21/20 0803 0850 1247 Adonay Chavira MD /nt
[2020-10-21 10:36] LABS: HEMATOCRIT 25.1 % (37.0-47.0); HEMOGLOBIN 8.5 gm/dL (12.0-15.0); MCH 31.6 pg (26.0-34.0); MCV 92.9 fL (80.0-100.0); RBC 2.7 mil/uL (4.20-5.00); RDW 14.5 % (10.5-14.5); WBC 4.8 thou/uL (4.0-11.0)
[2020-10-21 10:58] LABS: % SATURATION 12 % (20-39); IRON 24 ug/dL (50-170); TIBC 195 ug/dL (250-450)
--- NOTE | 2020-10-21 13:37 | NUR ---
CM FOLLOWED UP WITH PT AT BEDSIDE THIS DAY. CM SPOKE WITH PT ABOUT ANTICIPATED NEED FOR POST ACUTE REHAB STAY. PT EXPRESSED INTEREST IN [facility], CM INDICATED THAT IN SOME INSTANCES INSURANCE WON'T AUTH ACUTE. CM PROVIDED [facility] LIST IF NEEDED FOR BACK UP. PT'S SPOUSE HAD SURGICAL PROCEDURE HERE THIS DAY WIHT DR. PANG HE IS HERE OVER NIGHT FOR OBSERVATION. SHE INDICATED THAT SHE AND FAMILY WERE MEETING TO DISCUSS SPOUSE TRANSITIONING TO AL AT THE [place] UPON DC. CM FOLLOWING REGARDING DC PLANNING. NEURO SURGERY HAD SEEN PT YESTERDAY RELATED TO L4 FX AND ORDERED A BRACE AND WERE GOING TO DISCUSS ACTIVITY LEVEL. THERAPIES HOLDING THIS DAY AWAITING THEIR INDICATION.
--- NOTE | 2020-10-21 14:56 | NUR ---
Assumed pt care at 7am.Pt in bed resting at the start of shift .Pt wanted to be cleanse due to large loose stool allover the bed.Complete bed bath and bed change done by email marketing manager.Assessment completed.vss.meds given as ordered and well tolerated.Dr Esquivel and Juan Carlos here,order noted.Later this shift,Dr Wooten here and order LSO brace for pt.Maria Dolores eng called and their rep for impression.No verbal c/o at present. Pt will be given regular diet at dinner. Will continue to monitor.
[2020-10-21 16:53] VITALS: BP 117/66
[2020-10-21 20:19] VITALS: BP 123/60
--- NOTE | 2020-10-22 02:36 | NUR ---
Assumed pt care at 1900. A/OX4,VSS.Incontinent of B&B, having loose stools,pericare done as needed and new purewick applied. C/o pain to BLE wounds medicated with Tylenol and effective. Pt concerned about dc plans,hoping to go to [facility],informed CM will update her in AM on the progress with placement,verbalized understanding. Dsgs to BLE C/D/I. Resting quietly at this time,will continue to monitor pt. Fall precautions in place.
[2020-10-22 07:54] VITALS: BP 133/76
--- NOTE | 2020-10-22 11:45 | NUR ---
CM SPOKE WITH PT AT BEDSIDE THIS DAY. CM INDICATED THAT [facility] ASSESSED AND INDICATED THAT THEY RECOMMENDED SKILLED POST ACUTE CARE STAY UPON DC PT LIKELY WON'T BE ABLE TO TOLERATE 3 HRS OF THERAPY A DAY AND THEY DON'T HAVE BEDS. PT ASKED THAT REFERRAL BE SENT TO [facility] FOR REVIEW FOR SHORT TERM SKILLED REHAB STAY. CM SPOKE WITH SON ADRIAN HE IS AWARE. CM NOTIFIED [facility] LIAISON OF REFERRAL. PT HAS LSO BRACE FROM [facility] FOR USE NOW. AWAITING THERAPY NOTES FROM TODAY. CM FOLLOWING REGARDING DC PLANNING. CM TO REACH OUT TO [facility].
--- NOTE | 2020-10-22 12:51 | NUR ---
Assumed pt care at 7am.Pt in bed resting. Assessment completed.vss.Pt c/o bilateral legs pain rated 3/10.Tylenol po given with relief.Complete bath given and purewick applied.Therapist exercise with pt and reocommended one person assist with transfer.security and compliance project manager working on pt dc snf when ready for discharge.No verbal c/o.Will continue to monitor.
[2020-10-22 17:09] VITALS: BP 133/75
[2020-10-22 21:00] VITALS: BP 148/67
--- NOTE | 2020-10-23 05:18 | NUR ---
ONCOMING REPORT NO ISSUES NOTED. PT C/O PAIN X1 THRU NOC. X2 EPISODES OF LARGE BM LOOSE STOOLS. ALERT AND ORIENTATED X4 .
[2020-10-23 07:51] VITALS: BP 123/61
[2020-10-23] MEDS ORDERED: ELIQUIS2.5 MG PO (08:47)
[2020-10-23] MEDS ORDERED: STIMULANT LAXA1 EACH PO (08:48)
[2020-10-23] MEDS ORDERED: MIRALAX17 GM PO (08:48)
[2020-10-23 17:00] VITALS: BP 126/65
--- NOTE | 2020-10-23 19:02 | NUR ---
PATIENT RECEIVED IV IRON TODAY. PLANS FOR DISCHARGE TOMORROW TO [place]. CONTINUE TO MONITOR PAIN. PATIENT UP WITH 1 ASSIST, AND UP TO CHAIR FOR MOST OF DAY. CONTINUE POC.
[2020-10-23 21:39] VITALS: BP 129/65
--- NOTE | 2020-10-24 05:18 | NUR ---
Assumed pt care at 1900. A/OX4, VSS. C/o pain to pelvic with movement,medicated with Tylenol and effective. Voiding per bedpan at NOC. IV infiltrated,new one inserted on lower LFA. Fall precautions in place,calls approp for help. Resting quietly w/o distress will continue to monitor pt.
[2020-10-24] MEDS ORDERED: ELIQUIS2.5 MG PO (07:25)
[2020-10-24 08:21] VITALS: BP 133/66
[2020-10-24 09:40] VITALS: BP 133/66
--- NOTE | 2020-10-24 11:27 | NUR ---
PT MEDICALLY STABLE TO DC TO [facility] SKILLED THIS DAY. CM FAXED ORDERS. CHART COPY MADE. AWAITING TIME OF TRANSPORT. PT AND FAMILY ARE AWARE AND AGREEABLE.
--- NOTE | 2020-10-24 12:46 | NUR ---
Assumed pt care this am, vs stable. Diet and medications are tolerated well. Wound care and dressing change done, dc pictures taken. POC followed with no signs or verbalizations of distress noted. Had a BM uses the bed jenkins. Tried to call report to Sheryl in OP, was on hold for 10 min nurse did ntoe machine operator hop picker the call. IV removed, awaiting trasnport.
== END 2020-10-24 14:14 | DRG 183 ==
LOC: ER 09:49 → EROBS 11:34 → 4W 11:34 → 4S 10-20 07:09 → 4W 10-20 07:15
PROVIDERS: Emergency Medicine; Hospitalist; Internal Medicine; ADMIT Surgery; ATTEND Surgery
DX: S22.42XA Multiple fractures of ribs, left side, initial encounter for closed fracture (principal); N17.0 Acute kidney failure with tubular necrosis; S32.049A Unspecified fracture of fourth lumbar vertebra, initial encounter for closed fracture; S32.592A Other specified fracture of left pubis, initial encounter for closed fracture; S32.19XA Other fracture of sacrum, initial encounter for closed fracture; L03.116 Cellulitis of left lower limb; E44.0 Moderate protein-calorie malnutrition; Z20.822 Contact with and (suspected) exposure to COVID-19; E78.00 Pure hypercholesterolemia, unspecified; E03.9 Hypothyroidism, unspecified; I48.91 Unspecified atrial fibrillation; S09.90XA Unspecified injury of head, initial encounter; I73.9 Peripheral vascular disease, unspecified; S00.83XA Contusion of other part of head, initial encounter; I50.9 Heart failure, unspecified; I87.8 Other specified disorders of veins; E78.5 Hyperlipidemia, unspecified; D50.9 Iron deficiency anemia, unspecified; K59.00 Constipation, unspecified; I11.0 Hypertensive heart disease with heart failure; R53.81 Other malaise; M48.07 Spinal stenosis, lumbosacral region; Z68.20 Body mass index [BMI] 20.0-20.9, adult; Z90.49 Acquired absence of other specified parts of digestive tract; Z98.41 Cataract extraction status, right eye; Z85.3 Personal history of malignant neoplasm of breast; Z88.2 Allergy status to sulfonamides; Z88.8 Allergy status to other drugs, medicaments and biological substances; Z95.820 Peripheral vascular angioplasty status with implants and grafts; Z92.3 Personal history of irradiation; Z86.718 Personal history of other venous thrombosis and embolism; W18.39XA Other fall on same level, initial encounter; Y93.89 Activity, other specified; Y92.89 Other specified places as the place of occurrence of the external cause; Y99.8 Other external cause status
CPT/HCPCS: 10045; 10047